=== PATIENT | male | born 1945 | race Caucasian/White ===

== ENCOUNTER → 2017-12-04 11:31 | Outpatient (CLI) | payer MEDICARE, OTHER, SELFPAY | PROVIDERS: Visit Provider Urology | DX: R97.20 Elevated prostate specific antigen [PSA] (principal) | CPT/HCPCS: 36415; 84153 ==

== ENCOUNTER 2018-07-27 15:30 | Inpatient (IN) | payer MEDICARE, OTHER, SELFPAY ==
[2018-07-27 15:38] VITALS: BP 170/95; PULSE 82; RESP 16; TEMP 37.2; O2SAT 96; BMI 29.2
[2018-07-27 16:24] LABS: Add Manual Diff / Slide Review NO; Basophils Absolute Auto 100 /uL (0-100); Basophils Percent Auto 0.4 % (0-2); Eosinophils Absolute Auto 0 /uL (0-450); Eosinophils Percent Auto 0.3 % (2-4); Hemoglobin 14.7 g/dL (13.5-17.5); Lymphocytes Absolute Auto 1200 /uL (1100-4500); Mean Corpuscular HGB Conc 34.2 % (30-36); Mean Corpuscular Hemoglobin 29.8 PG (26-34); Mean Corpuscular Volume 87.1 fL (80-100); Monocytes Absolute Auto 1400 /uL (0-900); Monocytes Percent Auto 9.6 % (3-14); Neutrophils Absolute Auto 11800 /uL (1500-7000); Neutrophils Percent Auto 81.7 % (50-75); Platelet Count 232 X10^3/uL (150-400); Red Blood Cell Count 4.94 X10^6/uL (4.5-5.9); Red Cell Distribution Width 13.3 % (11.6-14.8); White Blood Cell Count 14.4 X10^3/uL (4.5-11.0)
[2018-07-27 16:30] LABS: INR 1.1 (0.9-1.3); Prothrombin Time 12.1 SECONDS (10.1-12.7)
[2018-07-27 16:33] LABS: PTT Partial Thromboplastin Tim 33 SECONDS (26.4-36.2)
[2018-07-27 16:41] LABS: Alanine Aminotransferase 25 IU/L (21-72); Albumin 4.2 g/dL (3.5-5.0); Albumin Globulin Ratio 1.3 (1.0-2.8); Alkaline Phosphatase 82 U/L (38-126); Aspartate Aminotransferase 29 IU/L (17-59); BUN Creatinine Ratio 22.5 (6-22); Bilirubin Total 0.9 mg/dL (0.2-1.3); Blood Urea Nitrogen 18 mg/dL (9-20); Calcium 9.7 mg/dL (8.4-10.2); Carbon Dioxide 27 mmol/L (22-32); Chloride 103 mmol/L (98-107); Estimated Glomerular Filt Rate > 60.0 mL/min (>60); Globulin 3.2 g/dL (1.7-4.1); Glucose 120 mg/dL (80-110); HEMOLYSIS < 15 (0-50); Lipase 126 U/L (23-300); Potassium 3.4 mmol/L (3.4-5.1); Sodium 138 mmol/L (137-145); Total Protein 7.4 g/dL (6.3-8.2)
--- NOTE | 2018-07-27 17:18 | DI.CT.S_ITS ---
PROCEDURE: CT ABDOMEN PELVIS W CON INDICATIONS: abd pain, fever, elevated wbc, hx dvrtc TECHNIQUE: After the administration of oral and intravenous contrast, 5 mm thick sections acquired from the diaphragms to the symphysis. 5 mm thick coronal and sagittal reformats were performed. For radiation dose reduction, the following was used: automated exposure control, adjustment of mA and/or kV according to patient size. COMPARISON: None. FINDINGS: Image quality: Diagnostic. ABDOMEN: Lung bases: Lung bases are clear. Heart size is normal. Solid organs: Liver is normal in size. Multiple hypodense lesions within the liver are compatible with small to moderate-sized hepatic cysts with the largest located within the left hepatic lobe, measuring up to approximately 4 cm in diameter. No intrahepatic or extrahepatic biliary dilatation is identified. There appears to be a small gallstone within the dependent aspect of the gallbladder. The spleen is borderline prominent in size. A subcentimeter focus of low attenuation (image 20, series 2) within the spleen is too small to adequately characterize. The pancreas is within normal limits. The adrenals are normal in size. The kidneys are unremarkable. However, an exophytic left renal cyst is present. Perinephric edema probably is senescent. There is no hydronephrosis. Peritoneum and bowel: There is a small hiatal hernia. Otherwise, the stomach is unremarkable. The duodenum and small bowel loops are nondilated. The appendix is well-visualized and normal in size. Distal colonic diverticulosis is identified with a moderate thickening of the wall of the distal colon at the junction between the descending colon and the sigmoid colon. There is prominent edema within the adjacent mesentery at this location. There may be a small amount of free air adjacent to the descending colon, suggesting a possible contained perforation (image 71, series 2). Minimal free fluid is seen within the left paracolic gutter. No drainable or loculated fluid collections are identified. Nodes and vessels: No retroperitoneal or mesenteric adenopathy. Aorta and inferior vena cava are normal in caliber. There is aortic atherosclerosis. Bones: No acute fracture or suspicious osseous lesion is evident. Age-appropriate degenerative changes of the spine are noted. PELVIS: Genitourinary: Bladder wall thickness is normal. The prostate is enlarged and measures up to approximately 5.2 x 5.4 cm. Miscellaneous: No inguinal hernias or adenopathy. No free fluid or loculated fluid collection is seen within the deep pelvis. Bones: No suspicious bony lesions. No acute pelvic fractures are evident. IMPRESSION: 1. Distal colonic diverticulitis with probable early colonic/diverticular perforation. No abscess or drainable fluid collection is evident. No bowel obstruction. 2. Colonoscopy is recommended after appropriate clinical management to exclude an underlying lesion, given the degree of colonic wall thickening at the junction of the descending and sigmoid colon. 3. Enlarged prostate. 4. Hepatic cysts. 5. Cholelithiasis. Dictated by: Neptali Cantu M.D. on 07/27/2018 at 16:50 Approved by: Neptali Cantu M.D. on 07/27/2018 at 16:57
[2018-07-27 17:35] VITALS: BP 144/74; PULSE 74; RESP 11; O2SAT 94
[2018-07-27] MEDS: SODIUM CHLORIDE 0.9% 1,000 ML 1000 ML IV (17:59)
[2018-07-27] MEDS: metroNIDAZOLE 500 MG/100 ML PIGGYBACK 100 MG IV (19:00)
[2018-07-27] MEDS: levoFLOXacin 750 MG/150 ML PIGGYBACK 100 MG IV (19:01)
[2018-07-27 19:15] VITALS: BP 161/83; PULSE 80; RESP 14; O2SAT 95
[2018-07-27] MEDS: ONDANSETRON 4 MG ODT SL (19:54)
[2018-07-27 20:00] VITALS: BP 139/72; PULSE 74; RESP 18; O2SAT 95
--- NOTE | 2018-07-27 20:21 | ED.ABDPAIN ---
HPI - Abdominal Pain <ÁNGEL Zuniga-BC - Last Filed: 07/27/18 21:20> General Chief Complaint: Abdominal Pain Stated Complaint: ABODOINAL PAIN FOR PAST 14 HOUR, BLOOD IN STOOL Time Seen by Provider: 07/27/18 16:14 Source: patient and family Mode of arrival: ambulatory Limitations: no limitations History of Present Illness HPI narrative: The patient is a 73-year-old male former smoker with history of hypertension, diverticulitis and had noticed the presents with a chief complaint of abdominal pain. He states he thinks he is having a diverticulitis flare again. He complains of low-grade temperatures, denies any nausea vomiting. He states he is having loose stools with bloody mucus for the past 14 hours or so. The abdominal pain also started about 14 hours ago. He states his pain is in the suprapubic area. He denies any chest pain, shortness of breath and or URI symptoms. He denies any dysuria urgency or frequency. Related Data Home Medications Medication Instructions Recorded Confirmed hydrochlorothiazide 12.5 mg PO Q DAY #0 02/04/17 07/27/18 losartan [Cozaar] 100 mg PO Q DAY #0 02/04/17 07/27/18 metoprolol tartrate 50 mg PO Q DAY #0 02/04/17 07/27/18 ascorbic acid (vitamin C) 500 mg PO QDAY #0 03/29/17 07/27/18 felodipine 10 mg PO QDAY #0 03/29/17 07/27/18 multivitamin [Multiple Vitamins] 1 tab PO QDAY #0 03/29/17 07/27/18 potassium chloride 10 meq PO Q DAY #0 03/29/17 07/27/18 vitamin B complex [B 1 tab PO QDAY #0 03/29/17 Complex-Vitamin B12] B Complex-Vitamin B12 1 PO DAILY 07/27/18 lutein 1 PO DAILY 07/27/18 Allergies Allergy/AdvReac Type Severity Reaction Status Date / Time No Known Drug Allergies Allergy Verified 07/27/18 15:40 Review of Systems <ÁNGEL Zuniga-BC - Last Filed: 07/27/18 21:20> Review of Systems GENERAL: Denies chills, fatigue, malaise, fever, sweats. HEENT: Denies sinus pain, ear pain, sore throat, difficulty swallowing, dizziness. RESPIRATORY: Denies dyspnea, cough, wheezing, hemoptysis, sputum. CARDIOVASCULAR: Denies chest pain, palpitations, orthopnea, edema, GASTROINTESTINAL: See HPI : Denies dysuria, frequency, incontinence, hematuria, urinary retention. MUSCULOSKELETAL: denies weakness, joint pain, or bony pain SKIN: Denies rash, skin lesions, or other NEUROLOGIC: Denies weakness, headache, numbness, change in speech, confusion, seizures, incoordination. PSYCHIATRIC: No concerning psychosocial issues. 12 point review of systems is negative except for those stated above PFSH <APRIL Zuniga - Last Filed: 07/27/18 21:20> Medical History (Updated 07/27/18 @ 21:18 by APRIL Zuniga) Hypertension (Acute) BPH (benign prostatic hyperplasia) (Chronic) Hepatitis B (Chronic) Surgical History (Updated 07/27/18 @ 21:00 by Rafat Miguel MD) History of lithotripsy (Resolved) Social History household members: spouse Smoking Status: Former smoker alcohol intake: current Social History household members: spouse Smoking Status: Former smoker alcohol intake: current Exam <APRIL Zuniga - Last Filed: 07/27/18 21:20> Narrative Exam Narrative: GENERAL: This is a well-nourished, well-developed patient, in mild distress. HEAD: Atraumatic. Normocephalic. No temporal or scalp tenderness. EYES: Pupils equal round and reactive. Extraocular motions intact. No scleral icterus. No injection or drainage. ENT: Nose without bleeding, purulent drainage or septal hematoma. Throat without erythema, tonsillar hypertrophy or exudate. Uvula midline. Airway patent. NECK: Trachea midline. No JVD or lymphadenopathy. Supple, nontender, no meningeal signs. CARDIOVASCULAR: Regular rate and rhythm without murmurs, gallops, or rubs. RESPIRATORY: Clear to auscultation. Breath sounds equal bilaterally. No wheezes, rales, or rhonchi. No cough. No increased respiratory effort. No accessory muscle use. No stridor. GASTROINTESTINAL: Abdomen round diffusely tender to palpation suprapubic area, slightly distended. No hepato-splenomegaly, or palpable masses. No guarding. Active bowel sounds all 4 quadrants EXTREMITIES: No clubbing, cyanosis, or edema. No joint tenderness, effusion, or edema noted. BACK: Nontender without deformity or crepitance. No flank tenderness. NEURO: AOx3. SKIN: No rash or erythema. Patient declined rectal exam, stating he did not need Hemoccult to tell me there is blood in his stool Initial Vital Signs Initial Vital Signs: Vital Signs Temperature 99.0 F 07/27/18 15:38 Pulse Rate 82 07/27/18 15:38 Respiratory Rate 16 07/27/18 15:38 Blood Pressure 170/95 H 07/27/18 15:38 Pulse Oximetry 96 07/27/18 15:38 <Donald Mcintosh DO - Last Filed: 07/28/18 01:30> Initial Vital Signs Initial Vital Signs: Vital Signs Temperature 99.0 F 07/27/18 15:38 Pulse Rate 82 07/27/18 15:38 Respiratory Rate 16 07/27/18 15:38 Blood Pressure 170/95 H 07/27/18 15:38 Pulse Oximetry 96 07/27/18 15:38 Course <ERNIE Zuniga - Last Filed: 07/27/18 21:20> Orders Ordered: ED Orders 07/27/18 17:18 CT abdomen pelvis w con Stat 07/27/18 20:45 Urine Culture Stat Urine Microscopic Stat 07/27/18 22:07 Consult to Discharge Planning Routine Education, smoking cessation ONGOING 07/27/18 23:50 Consult to Dietitian, Adult Routine 07/28/18 05:00 Complete Blood Count AUTO DIFF Routine Enoxaparin Sodium (Lovenox) 40 mg SUBCUT DAILY [facility] Last Admin: 07/27/18 22:53 Dose: Not Given Hydrochlorothiazide (Hydrochlorothiazide) 12.5 mg PO DAILY [facility] Lactated Ringer's (Lactated Ringers) 1,000 mls @ 150 mls/hr IV CONT [facility] Last Admin: 07/27/18 22:27 Dose: 150 mls/hr Piperacillin/Tazobactam/Dextrose (Zosyn) 3.375 gm in 50 mls @ 100 mls/hr IV Q6H [facility] Last Admin: 07/27/18 22:53 Dose: 100 mls/hr Ketorolac Tromethamine (Toradol) 30 mg IV Q8HR PRN PRN Reason: pain Stop: 08/01/18 21:28 Lorazepam (Ativan) 0.5 mg IV Q6HR PRN PRN Reason: Losartan Potassium (Cozaar) 100 mg PO DAILY [facility] Metoprolol Tartrate (Lopressor) 50 mg PO DAILY [facility] Naloxone HCl (Narcan) 0.2 mg IV Q2MIN PRN PRN Reason: Opiate Reversal Ondansetron HCl (Zofran) 4 mg IV Q4HR PRN PRN Reason: Nausea And Vomiting Potassium Chloride (Klor-Con M20) 20 meq PO DAILYCC [facility] Discontinued Medications Sodium Chloride (Normal Saline 0.9%) 1,000 mls @ 1,000 mls/hr IV BOLUS ONE Stop: 07/27/18 18:17 Last Infusion: 07/27/18 19:30 Dose: 0 mls/hr Admin: 07/27/18 17:59 Dose: 1,000 mls/hr Levofloxacin (Levaquin) 750 mg in 150 mls @ 100 mls/hr IV NOW ONE Stop: 07/27/18 20:19 Last Infusion: 07/27/18 20:58 Dose: 0 mls/hr Admin: 07/27/18 19:01 Dose: 100 mls/hr Metronidazole (Flagyl) 500 mg in 100 mls @ 100 mls/hr IV NOW ONE Stop: 07/27/18 19:49 Last Infusion: 07/27/18 20:40 Dose: 0 mls/hr Admin: 07/27/18 19:00 Dose: 100 mls/hr Ondansetron HCl (Zofran Odt) 4 mg SL NOW ONE Stop: 07/27/18 19:53 Last Admin: 07/27/18 19:54 Dose: 4 mg Consultations Consultation #1: Given the patient's concern for perforation on CT, I spoke with Dr. Miguel. He states he will be down to see the patient. Time: 18:50 Vital Signs - 8 hr 07/27/18 17:35 07/27/18 19:15 07/27/18 20:00 Temperature Pulse Rate 74 80 74 Respiratory Rate 11 L 14 18 Blood Pressure Blood Pressure [Left Arm] 144/74 H 161/83 H 139/72 Pulse Oximetry 94 95 95 07/27/18 21:20 07/27/18 23:46 Temperature 99.0 F 99.7 F H Pulse Rate 72 68 Respiratory Rate 20 18 Blood Pressure 173/77 H 143/84 H Blood Pressure [Left Arm] Pulse Oximetry 94 97 <Donald Mcintosh, DO - Last Filed: 07/28/18 01:30> Orders Ordered: ED Orders 07/27/18 17:18 CT abdomen pelvis w con Stat 07/27/18 20:45 Urine Culture Stat Urine Microscopic Stat 07/27/18 22:07 Consult to Discharge Planning Routine Education, smoking cessation ONGOING 07/27/18 23:50 Consult to Dietitian, Adult Routine 07/28/18 05:00 Complete Blood Count AUTO DIFF Routine Enoxaparin Sodium (Lovenox) 40 mg SUBCUT DAILY [facility] Last Admin: 07/27/18 22:53 Dose: Not Given Hydrochlorothiazide (Hydrochlorothiazide) 12.5 mg PO DAILY [facility] Lactated Ringer's (Lactated Ringers) 1,000 mls @ 150 mls/hr IV CONT [facility] Last Admin: 07/27/18 22:27 Dose: 150 mls/hr Piperacillin/Tazobactam/Dextrose (Zosyn) 3.375 gm in 50 mls @ 100 mls/hr IV Q6H [facility] Last Admin: 07/27/18 22:53 Dose: 100 mls/hr Ketorolac Tromethamine (Toradol) 30 mg IV Q8HR PRN PRN Reason: pain Stop: 08/01/18 21:28 Lorazepam (Ativan) 0.5 mg IV Q6HR PRN PRN Reason: Losartan Potassium (Cozaar) 100 mg PO DAILY [facility] Metoprolol Tartrate (Lopressor) 50 mg PO DAILY [facility] Naloxone HCl (Narcan) 0.2 mg IV Q2MIN PRN PRN Reason: Opiate Reversal Ondansetron HCl (Zofran) 4 mg IV Q4HR PRN PRN Reason: Nausea And Vomiting Potassium [facility] Medications Sodium Chloride (Normal Saline 0.9%) 1,000 mls @ 1,000 mls/hr IV BOLUS ONE Stop: 07/27/18 18:17 Last Infusion: 07/27/18 19:30 Dose: 0 mls/hr Admin: 07/27/18 17:59 Dose: 1,000 mls/hr Levofloxacin (Levaquin) 750 mg in 150 mls @ 100 mls/hr IV NOW ONE Stop: 07/27/18 20:19 Last Infusion: 07/27/18 20:58 Dose: 0 mls/hr Admin: 07/27/18 19:01 Dose: 100 mls/hr Metronidazole (Flagyl) 500 mg in 100 mls @ 100 mls/hr IV NOW ONE Stop: 07/27/18 19:49 Last Infusion: 07/27/18 20:40 Dose: 0 mls/hr Admin: 07/27/18 19:00 Dose: 100 mls/hr Ondansetron HCl (Zofran Odt) 4 mg SL NOW ONE Stop: 07/27/18 19:53 Last Admin: 07/27/18 19:54 Dose: 4 mg Vital Signs - 8 hr 07/27/18 17:35 07/27/18 19:15 07/27/18 20:00 Temperature Pulse Rate 74 80 74 Respiratory Rate 11 L 14 18 Blood Pressure Blood Pressure [Left Arm] 144/74 H 161/83 H 139/72 Pulse Oximetry 94 95 95 07/27/18 21:20 07/27/18 23:46 Temperature 99.0 F 99.7 F H Pulse Rate 72 68 Respiratory Rate 20 18 Blood Pressure 173/77 H 143/84 H Blood Pressure [Left Arm] Pulse Oximetry 94 97 MDM - Abdominal Pain <ÁNGEL Zuniga-BC - Last Filed: 07/27/18 21:20> Lab Data Result diagrams: 07/27/18 16:10 07/27/18 16:10 Lab Results 07/27/18 07/27/18 07/27/18 Range/Units 16:10 16:10 16:10 WBC 14.4 H (4.5-11.0) X10^3/uL RBC 4.94 (4.5-5.9) X10^6/uL Hgb 14.7 (13.5-17.5) g/dL Hct 43.0 (41-53) % MCV 87.1 (80-100) fL MCH 29.8 (26-34) PG MCHC 34.2 (30-36) % RDW 13.3 (11.6-14.8) % Plt Count 232 (150-400) X10^3/uL Neut % (Auto) 81.7 H (50-75) % Lymph % (Auto) 8.0 L (25-40) % [place] % (Auto) 9.6 (3-14) % Eos % (Auto) 0.3 L (2-4) % Baso % (Auto) 0.4 (0-2) % Neut # (Auto) 63353 H (2582-9907) /uL Lymph # (Auto) 1200 (3286-5702) /uL [place] # (Auto) 1400 H (0-900) /uL Eos # (Auto) 0 (0-450) /uL Baso # (Auto) 100 (0-100) /uL PT 12.1 (10.1-12.7) SECONDS INR 1.1 (0.9-1.3) APTT 33 (26.4-36.2) SECONDS Sodium 138 (137-145) mmol/L Potassium 3.4 (3.4-5.1) mmol/L Chloride 103 (98-107) mmol/L Carbon Dioxide 27 (22-32) mmol/L BUN 18 (9-20) mg/dL Creatinine 0.80 (0.66-1.25) mg/dL Estimated GFR > 60.0 (>60) mL/min BUN/Creatinine Ratio 22.5 H (6-22) Glucose 120 H (80-110) mg/dL Calcium 9.7 (8.4-10.2) mg/dL Total Bilirubin 0.9 (0.2-1.3) mg/dL AST 29 (17-59) IU/L ALT 25 (21-72) IU/L Alkaline Phosphatase 82 (38-126) U/L Total Protein 7.4 (6.3-8.2) g/dL Albumin 4.2 (3.5-5.0) g/dL Globulin 3.2 (1.7-4.1) g/dL Albumin/Globulin Ratio 1.3 (1.0-2.8) Lipase 126 (23-300) U/L Urine RBC (0-5/HPF) Urine WBC (0-5/HPF) Ur Squamous Epith Cells (0-5/HPF) Urine Bacteria (None) Ur Culture Indicated? 07/27/18 Range/Units 20:45 WBC (4.5-11.0) X10^3/uL RBC (4.5-5.9) X10^6/uL Hgb (13.5-17.5) g/dL Hct (41-53) % MCV (80-100) fL MCH (26-34) PG MCHC (30-36) % RDW (11.6-14.8) % Plt Count (150-400) X10^3/uL Neut % (Auto) (50-75) % Lymph % (Auto) (25-40) % [place] % (Auto) (3-14) % Eos % (Auto) (2-4) % Baso % (Auto) (0-2) % Neut # (Auto) (7669-2367) /uL Lymph # (Auto) (5740-6703) /uL [place] # (Auto) (0-900) /uL Eos # (Auto) (0-450) /uL Baso # (Auto) (0-100) /uL PT (10.1-12.7) SECONDS INR (0.9-1.3) APTT (26.4-36.2) SECONDS Sodium (137-145) mmol/L Potassium (3.4-5.1) mmol/L Chloride (98-107) mmol/L Carbon Dioxide (22-32) mmol/L BUN (9-20) mg/dL Creatinine (0.66-1.25) mg/dL Estimated GFR (>60) mL/min BUN/Creatinine Ratio (6-22) Glucose (80-110) mg/dL Calcium (8.4-10.2) mg/dL Total Bilirubin (0.2-1.3) mg/dL AST (17-59) IU/L ALT (21-72) IU/L Alkaline Phosphatase (38-126) U/L Total Protein (6.3-8.2) g/dL Albumin (3.5-5.0) g/dL Globulin (1.7-4.1) g/dL Albumin/Globulin Ratio (1.0-2.8) Lipase (23-300) U/L Urine RBC 0-1/hpf (0-5/HPF) Urine WBC 0-1/hpf (0-5/HPF) Ur Squamous Epith Cells 0-1 /hpf (0-5/HPF) Urine Bacteria Occasional (0-1) (None) Ur Culture Indicated? Specimen cultured Point of care testing: Urine Dip Bedside Urine Glucose Negative Bedside Urine Bilirubin - Negative Bedside Urine Ketone +/- 5 Urine Specific [place] 1.015 Bedside Urine Occult Blood - Negative Bedside Urine pH 5.0 Bedside Urine Protein +/- 15 Bedside Urine Urobilinogen +/- 1mg Bedside Urine Nitrite - Negative Bedside Urine Leukocytes +/- [address] scan - abdomen: Radiologist's impression: [place] [address] CT Scan Report Signed Patient: John Mistry RMR#: [id number] : 7Acct:[id number] Age/Sex: 73 / MDate of Service: 07/27/18 Loc: ED Accession Number: [id number] Procedure: CT abdomen pelvis w con Ordering Provider: Rosanna King EX ASSISTANT/PROGRAM DIRECTOR-BC PROCEDURE: CT ABDOMEN PELVIS W CON INDICATIONS: abd pain, fever, elevated wbc, hx dvrtc TECHNIQUE: After the administration of oral and intravenous contrast, 5 mm thick sections acquired from the diaphragms to the symphysis. 5 mm thick coronal and sagittal reformats were performed. For radiation dose reduction, the following was used: automated exposure control, adjustment of mA and/or kV according to patient size. COMPARISON: None. FINDINGS: Image quality: Diagnostic. ABDOMEN: Lung bases: Lung bases are clear. Heart size is normal. Solid organs: Liver is normal in size. Multiple hypodense lesions within the liver are compatible with small to moderate-sized hepatic cysts with the largest located within the left hepatic lobe, measuring up to approximately 4 cm in diameter. No intrahepatic or extrahepatic biliary dilatation is identified. There appears to be a small gallstone within the dependent aspect of the gallbladder. The spleen is borderline prominent in size. A subcentimeter focus of low attenuation (image 20, series 2) within the spleen is too small to adequately characterize. The pancreas is within normal limits. The adrenals are normal in size. The kidneys are unremarkable. However, an exophytic left renal cyst is present. Perinephric edema probably is senescent. There is no hydronephrosis. Peritoneum and bowel: There is a small hiatal hernia. Otherwise, the stomach is unremarkable. The duodenum and small bowel loops are nondilated. The appendix is well-visualized and normal in size. Distal colonic diverticulosis is identified with a moderate thickening of the wall of the distal colon at the junction between the descending colon and the sigmoid colon. There is prominent edema within the adjacent mesentery at this location. There may be a small amount of free air adjacent to the descending colon, suggesting a possible contained perforation (image 71, series 2). Minimal free fluid is seen within the left paracolic gutter. No drainable or loculated fluid collections are identified. Nodes and vessels: No retroperitoneal or mesenteric adenopathy. Aorta and inferior vena cava are normal in caliber. There is aortic atherosclerosis. Bones: No acute fracture or suspicious osseous lesion is evident. Age-appropriate degenerative changes of the spine are noted. PELVIS: Genitourinary: Bladder wall thickness is normal. The prostate is enlarged and measures up to approximately 5.2 x 5.4 cm. Miscellaneous: No inguinal hernias or adenopathy. No free fluid or loculated fluid collection is seen within the deep pelvis. Bones: No suspicious bony lesions. No acute pelvic fractures are evident. IMPRESSION: 1. Distal colonic diverticulitis with probable early colonic/diverticular perforation. No abscess or drainable fluid collection is evident. No bowel obstruction. 2. Colonoscopy is recommended after appropriate clinical management to exclude an underlying lesion, given the degree of colonic wall thickening at the junction of the descending and sigmoid colon. 3. Enlarged prostate. 4. Hepatic cysts. 5. Cholelithiasis. MDM Narrative Medical decision making narrative: The patient is a 73-year-old male who presents with chief complaint of abdominal pain. On CT scan, he has distal colonic diverticulitis with probable early perforation. He has no elevated white blood cell count. Has low-grade fevers. After the results of the CT scan, he received IV metronidazole and Levaquin. Dr. Miguel was down to see the patient and was kind enough to admit him. Patient and stated understanding of admission and had no questions or concerns. <Donald Mcintosh, - Last Filed: 07/28/18 01:30> Lab Data Lab Results 07/27/18 07/27/18 07/27/18 Range/Units 16:10 16:10 16:10 WBC 14.4 H (4.5-11.0) X10^3/uL RBC 4.94 (4.5-5.9) X10^6/uL Hgb 14.7 (13.5-17.5) g/dL Hct 43.0 (41-53) % MCV 87.1 (80-100) fL MCH 29.8 (26-34) PG MCHC 34.2 (30-36) % RDW 13.3 (11.6-14.8) % Plt Count 232 (150-400) X10^3/uL Neut % (Auto) 81.7 H (50-75) % Lymph % (Auto) 8.0 L (25-40) % [place] % (Auto) 9.6 (3-14) % Eos % (Auto) 0.3 L (2-4) % Baso % (Auto) 0.4 (0-2) % Neut # (Auto) 78669 H (3979-2644) /uL Lymph # (Auto) 1200 (4356-0658) /uL [place] # (Auto) 1400 H (0-900) /uL Eos # (Auto) 0 (0-450) /uL Baso # (Auto) 100 (0-100) /uL PT 12.1 (10.1-12.7) SECONDS INR 1.1 (0.9-1.3) APTT 33 (26.4-36.2) SECONDS Sodium 138 (137-145) mmol/L Potassium 3.4 (3.4-5.1) mmol/L Chloride 103 (98-107) mmol/L Carbon Dioxide 27 (22-32) mmol/L BUN 18 (9-20) mg/dL Creatinine 0.80 (0.66-1.25) mg/dL Estimated GFR > 60.0 (>60) mL/min BUN/Creatinine Ratio 22.5 H (6-22) Glucose 120 H (80-110) mg/dL Calcium 9.7 (8.4-10.2) mg/dL Total Bilirubin 0.9 (0.2-1.3) mg/dL AST 29 (17-59) IU/L ALT 25 (21-72) IU/L Alkaline Phosphatase 82 (38-126) U/L Total Protein 7.4 (6.3-8.2) g/dL Albumin 4.2 (3.5-5.0) g/dL Globulin 3.2 (1.7-4.1) g/dL Albumin/Globulin Ratio 1.3 (1.0-2.8) Lipase 126 (23-300) U/L Urine RBC (0-5/HPF) Urine WBC (0-5/HPF) Ur Squamous Epith Cells (0-5/HPF) Urine Bacteria (None) Ur Culture Indicated? 07/27/18 Range/Units 20:45 WBC (4.5-11.0) X10^3/uL RBC (4.5-5.9) X10^6/uL Hgb (13.5-17.5) g/dL Hct (41-53) % MCV (80-100) fL MCH (26-34) PG MCHC (30-36) % RDW (11.6-14.8) % Plt Count (150-400) X10^3/uL Neut % (Auto) (50-75) % Lymph % (Auto) (25-40) % [place] % (Auto) (3-14) % Eos % (Auto) (2-4) % Baso % (Auto) (0-2) % Neut # (Auto) (9835-3575) /uL Lymph # (Auto) (3626-7635) /uL [place] # (Auto) (0-900) /uL Eos # (Auto) (0-450) /uL Baso # (Auto) (0-100) /uL PT (10.1-12.7) SECONDS INR (0.9-1.3) APTT (26.4-36.2) SECONDS Sodium (137-145) mmol/L Potassium (3.4-5.1) mmol/L Chloride (98-107) mmol/L Carbon Dioxide (22-32) mmol/L BUN (9-20) mg/dL Creatinine (0.66-1.25) mg/dL Estimated GFR (>60) mL/min BUN/Creatinine Ratio (6-22) Glucose (80-110) mg/dL Calcium (8.4-10.2) mg/dL Total Bilirubin (0.2-1.3) mg/dL AST (17-59) IU/L ALT (21-72) IU/L Alkaline Phosphatase (38-126) U/L Total Protein (6.3-8.2) g/dL Albumin (3.5-5.0) g/dL Globulin (1.7-4.1) g/dL Albumin/Globulin Ratio (1.0-2.8) Lipase (23-300) U/L Urine RBC 0-1/hpf (0-5/HPF) Urine WBC 0-1/hpf (0-5/HPF) Ur Squamous Epith Cells 0-1 /hpf (0-5/HPF) Urine Bacteria Occasional (0-1) (None) Ur Culture Indicated? Specimen cultured Point of care testing: Urine Dip Bedside Urine Glucose Negative Bedside Urine Bilirubin - Negative Bedside Urine Ketone +/- 5 Urine Specific [place] 1.015 Bedside Urine Occult Blood - Negative Bedside Urine pH 5.0 Bedside Urine Protein +/- 15 Bedside Urine Urobilinogen +/- 1mg Bedside Urine Nitrite - Negative Bedside Urine Leukocytes +/- 15 Esterase Discharge Plan Departure Patient Disposition: Admitted As Inpatient Clinical Impression: Diverticulitis of colon with perforation Qualifiers: Diverticulitis bleeding: with bleeding Qualified Code(s): K57.21 - Diverticulitis of large intestine with perforation and abscess with bleeding Discharge Date/Time: 07/27/18 21:35 Interventions: ED Discharge Assessment Last Done: 07/27/18 21:35 Admit Date/Time: 07/27/18 20:40 Admit Provider: Rafat Miguel <Donald Mcintosh DO - Last Filed: 07/28/18 01:30> Cosign ED Attending Cosignature Attestation: I was immediately available in the department for consultation. Documentation has been reviewed. I agree with assessment and plan.
--- NOTE | 2018-07-27 20:26 | ED_ITS ---
HPI - Abdominal Pain <ÁNGEL Zuniga-BC - Last Filed: 07/27/18 21:20> General Chief Complaint: Abdominal Pain Stated Complaint: ABODOINAL PAIN FOR PAST 14 HOUR, BLOOD IN STOOL Time Seen by Provider: 07/27/18 16:14 Source: patient and family Mode of arrival: ambulatory Limitations: no limitations History of Present Illness HPI narrative: The patient is a 73-year-old male former smoker with history of hypertension, diverticulitis and had noticed the presents with a chief complaint of abdominal pain. He states he thinks he is having a diverticulitis flare again. He complains of low-grade temperatures, denies any nausea vomiting. He states he is having loose stools with bloody mucus for the past 14 hours or so. The abdominal pain also started about 14 hours ago. He states his pain is in the suprapubic area. He denies any chest pain, shortness of breath and or URI symptoms. He denies any dysuria urgency or frequency. Related Data Home Medications Medication Instructions Recorded Confirmed hydrochlorothiazide 12.5 mg PO Q DAY #0 02/04/17 07/27/18 losartan [Cozaar] 100 mg PO Q DAY #0 02/04/17 07/27/18 metoprolol tartrate 50 mg PO Q DAY #0 02/04/17 07/27/18 ascorbic acid (vitamin C) 500 mg PO QDAY #0 03/29/17 07/27/18 felodipine 10 mg PO QDAY #0 03/29/17 07/27/18 multivitamin [Multiple Vitamins] 1 tab PO QDAY #0 03/29/17 07/27/18 potassium chloride 10 meq PO Q DAY #0 03/29/17 07/27/18 vitamin B complex [B 1 tab PO QDAY #0 03/29/17 Complex-Vitamin B12] B Complex-Vitamin B12 1 PO DAILY 07/27/18 lutein 1 PO DAILY 07/27/18 Allergies Allergy/AdvReac Type Severity Reaction Status Date / Time No Known Drug Allergies Allergy Verified 07/27/18 15:40 Review of Systems <ÁNGEL Zuniga-BC - Last Filed: 07/27/18 21:20> Review of Systems GENERAL: Denies chills, fatigue, malaise, fever, sweats. HEENT: Denies sinus pain, ear pain, sore throat, difficulty swallowing, dizziness. RESPIRATORY: Denies dyspnea, cough, wheezing, hemoptysis, sputum. CARDIOVASCULAR: Denies chest pain, palpitations, orthopnea, edema, GASTROINTESTINAL: See HPI : Denies dysuria, frequency, incontinence, hematuria, urinary retention. MUSCULOSKELETAL: denies weakness, joint pain, or bony pain SKIN: Denies rash, skin lesions, or other NEUROLOGIC: Denies weakness, headache, numbness, change in speech, confusion, seizures, incoordination. PSYCHIATRIC: No concerning psychosocial issues. 12 point review of systems is negative except for those stated above PFSH <APRIL Zuniga - Last Filed: 07/27/18 21:20> Medical History (Updated 07/27/18 @ 21:18 by APRIL Zuniga) Hypertension (Acute) BPH (benign prostatic hyperplasia) (Chronic) Hepatitis B (Chronic) Surgical History (Updated 07/27/18 @ 21:00 by Rafat Miguel MD) History of lithotripsy (Resolved) Social History household members: spouse Smoking Status: Former smoker alcohol intake: current Social History household members: spouse Smoking Status: Former smoker alcohol intake: current Exam <APRIL Zuniga - Last Filed: 07/27/18 21:20> Narrative Exam Narrative: GENERAL: This is a well-nourished, well-developed patient, in mild distress. HEAD: Atraumatic. Normocephalic. No temporal or scalp tenderness. EYES: Pupils equal round and reactive. Extraocular motions intact. No scleral icterus. No injection or drainage. ENT: Nose without bleeding, purulent drainage or septal hematoma. Throat without erythema, tonsillar hypertrophy or exudate. Uvula midline. Airway patent. NECK: Trachea midline. No JVD or lymphadenopathy. Supple, nontender, no meningeal signs. CARDIOVASCULAR: Regular rate and rhythm without murmurs, gallops, or rubs. RESPIRATORY: Clear to auscultation. Breath sounds equal bilaterally. No wheezes, rales, or rhonchi. No cough. No increased respiratory effort. No accessory muscle use. No stridor. GASTROINTESTINAL: Abdomen round diffusely tender to palpation suprapubic area, slightly distended. No hepato-splenomegaly, or palpable masses. No guarding. Active bowel sounds all 4 quadrants EXTREMITIES: No clubbing, cyanosis, or edema. No joint tenderness, effusion, or edema noted. BACK: Nontender without deformity or crepitance. No flank tenderness. NEURO: AOx3. SKIN: No rash or erythema. Patient declined rectal exam, stating he did not need Hemoccult to tell me there is blood in his stool Initial Vital Signs Initial Vital Signs: Vital Signs Temperature 99.0 F 07/27/18 15:38 Pulse Rate 82 07/27/18 15:38 Respiratory Rate 16 07/27/18 15:38 Blood Pressure 170/95 H 07/27/18 15:38 Pulse Oximetry 96 07/27/18 15:38 <Donald Mcintosh DO - Last Filed: 07/28/18 01:30> Initial Vital Signs Initial Vital Signs: Vital Signs Temperature 99.0 F 07/27/18 15:38 Pulse Rate 82 07/27/18 15:38 Respiratory Rate 16 07/27/18 15:38 Blood Pressure 170/95 H 07/27/18 15:38 Pulse Oximetry 96 07/27/18 15:38 Course <ERNIE Zuniga - Last Filed: 07/27/18 21:20> Orders Ordered: ED Orders 07/27/18 17:18 CT abdomen pelvis w con Stat 07/27/18 20:45 Urine Culture Stat Urine Microscopic Stat 07/27/18 22:07 Consult to Discharge Planning Routine Education, smoking cessation ONGOING 07/27/18 23:50 Consult to Dietitian, Adult Routine 07/28/18 05:00 Complete Blood Count AUTO DIFF Routine Enoxaparin Sodium (Lovenox) 40 mg SUBCUT DAILY [facility] Last Admin: 07/27/18 22:53 Dose: Not Given Hydrochlorothiazide (Hydrochlorothiazide) 12.5 mg PO DAILY [facility] Lactated Ringer's (Lactated Ringers) 1,000 mls @ 150 mls/hr IV CONT [facility] Last Admin: 07/27/18 22:27 Dose: 150 mls/hr Piperacillin/Tazobactam/Dextrose (Zosyn) 3.375 gm in 50 mls @ 100 mls/hr IV Q6H [facility] Last Admin: 07/27/18 22:53 Dose: 100 mls/hr Ketorolac Tromethamine (Toradol) 30 mg IV Q8HR PRN PRN Reason: pain Stop: 08/01/18 21:28 Lorazepam (Ativan) 0.5 mg IV Q6HR PRN PRN Reason: Losartan Potassium (Cozaar) 100 mg PO DAILY [facility] Metoprolol Tartrate (Lopressor) 50 mg PO DAILY [facility] Naloxone HCl (Narcan) 0.2 mg IV Q2MIN PRN PRN Reason: Opiate Reversal Ondansetron HCl (Zofran) 4 mg IV Q4HR PRN PRN Reason: Nausea And Vomiting Potassium Chloride (Klor-Con M20) 20 meq PO DAILYCC [facility] Discontinued Medications Sodium Chloride (Normal Saline 0.9%) 1,000 mls @ 1,000 mls/hr IV BOLUS ONE Stop: 07/27/18 18:17 Last Infusion: 07/27/18 19:30 Dose: 0 mls/hr Admin: 07/27/18 17:59 Dose: 1,000 mls/hr Levofloxacin (Levaquin) 750 mg in 150 mls @ 100 mls/hr IV NOW ONE Stop: 07/27/18 20:19 Last Infusion: 07/27/18 20:58 Dose: 0 mls/hr Admin: 07/27/18 19:01 Dose: 100 mls/hr Metronidazole (Flagyl) 500 mg in 100 mls @ 100 mls/hr IV NOW ONE Stop: 07/27/18 19:49 Last Infusion: 07/27/18 20:40 Dose: 0 mls/hr Admin: 07/27/18 19:00 Dose: 100 mls/hr Ondansetron HCl (Zofran Odt) 4 mg SL NOW ONE Stop: 07/27/18 19:53 Last Admin: 07/27/18 19:54 Dose: 4 mg Consultations Consultation #1: Given the patient's concern for perforation on CT, I spoke with Dr. Miguel. He states he will be down to see the patient. Time: 18:50 Vital Signs - 8 hr 07/27/18 17:35 07/27/18 19:15 07/27/18 20:00 Temperature Pulse Rate 74 80 74 Respiratory Rate 11 L 14 18 Blood Pressure Blood Pressure [Left Arm] 144/74 H 161/83 H 139/72 Pulse Oximetry 94 95 95 07/27/18 21:20 07/27/18 23:46 Temperature 99.0 F 99.7 F H Pulse Rate 72 68 Respiratory Rate 20 18 Blood Pressure 173/77 H 143/84 H Blood Pressure [Left Arm] Pulse Oximetry 94 97 <Donald Mcintosh, DO - Last Filed: 07/28/18 01:30> Orders Ordered: ED Orders 07/27/18 17:18 CT abdomen pelvis w con Stat 07/27/18 20:45 Urine Culture Stat Urine Microscopic Stat 07/27/18 22:07 Consult to Discharge Planning Routine Education, smoking cessation ONGOING 07/27/18 23:50 Consult to Dietitian, Adult Routine 07/28/18 05:00 Complete Blood Count AUTO DIFF Routine Enoxaparin Sodium (Lovenox) 40 mg SUBCUT DAILY [facility] Last Admin: 07/27/18 22:53 Dose: Not Given Hydrochlorothiazide (Hydrochlorothiazide) 12.5 mg PO DAILY [facility] Lactated Ringer's (Lactated Ringers) 1,000 mls @ 150 mls/hr IV CONT [facility] Last Admin: 07/27/18 22:27 Dose: 150 mls/hr Piperacillin/Tazobactam/Dextrose (Zosyn) 3.375 gm in 50 mls @ 100 mls/hr IV Q6H [facility] Last Admin: 07/27/18 22:53 Dose: 100 mls/hr Ketorolac Tromethamine (Toradol) 30 mg IV Q8HR PRN PRN Reason: pain Stop: 08/01/18 21:28 Lorazepam (Ativan) 0.5 mg IV Q6HR PRN PRN Reason: Losartan Potassium (Cozaar) 100 mg PO DAILY [facility] Metoprolol Tartrate (Lopressor) 50 mg PO DAILY [facility] Naloxone HCl (Narcan) 0.2 mg IV Q2MIN PRN PRN Reason: Opiate Reversal Ondansetron HCl (Zofran) 4 mg IV Q4HR PRN PRN Reason: Nausea And Vomiting Potassium Chloride ([facility]Con M[facility]) [facility] Discontinued Medications Sodium Chloride (Normal Saline 0.9%) 1,000 mls @ 1,000 mls/hr IV BOLUS ONE Stop: 07/27/18 18:17 Last Infusion: 07/27/18 19:30 Dose: 0 mls/hr Admin: 07/27/18 17:59 Dose: 1,000 mls/hr Levofloxacin (Levaquin) 750 mg in 150 mls @ 100 mls/hr IV NOW ONE Stop: 07/27/18 20:19 Last Infusion: 07/27/18 20:58 Dose: 0 mls/hr Admin: 07/27/18 19:01 Dose: 100 mls/hr Metronidazole (Flagyl) 500 mg in 100 mls @ 100 mls/hr IV NOW ONE Stop: 07/27/18 19:49 Last Infusion: 07/27/18 20:40 Dose: 0 mls/hr Admin: 07/27/18 19:00 Dose: 100 mls/hr Ondansetron HCl (Zofran Odt) 4 mg SL NOW ONE Stop: 07/27/18 19:53 Last Admin: 07/27/18 19:54 Dose: 4 mg Vital Signs - 8 hr 07/27/18 17:35 07/27/18 19:15 07/27/18 20:00 Temperature Pulse Rate 74 80 74 Respiratory Rate 11 L 14 18 Blood Pressure Blood Pressure [Left Arm] 144/74 H 161/83 H 139/72 Pulse Oximetry 94 95 95 07/27/18 21:20 07/27/18 23:46 Temperature 99.0 F 99.7 F H Pulse Rate 72 68 Respiratory Rate 20 18 Blood Pressure 173/77 H 143/84 H Blood Pressure [Left Arm] Pulse Oximetry 94 97 MDM - Abdominal Pain <ÁNGEL Zuniga-BC - Last Filed: 07/27/18 21:20> Lab Data Result diagrams: 07/27/18 16:10 07/27/18 16:10 Lab Results 07/27/18 07/27/18 07/27/18 Range/Units 16:10 16:10 16:10 WBC 14.4 H (4.5-11.0) X10^3/uL RBC 4.94 (4.5-5.9) X10^6/uL Hgb 14.7 (13.5-17.5) g/dL Hct 43.0 (41-53) % MCV 87.1 (80-100) fL MCH 29.8 (26-34) PG MCHC 34.2 (30-36) % RDW 13.3 (11.6-14.8) % Plt Count 232 (150-400) X10^3/uL Neut % (Auto) 81.7 H (50-75) % Lymph % (Auto) 8.0 L (25-40) % [place] % (Auto) 9.6 (3-14) % Eos % (Auto) 0.3 L (2-4) % Baso % (Auto) 0.4 (0-2) % Neut # (Auto) 72320 H (6677-3303) /uL Lymph # (Auto) 1200 (6428-5919) /uL [place] # (Auto) 1400 H (0-900) /uL Eos # (Auto) 0 (0-450) /uL Baso # (Auto) 100 (0-100) /uL PT 12.1 (10.1-12.7) SECONDS INR 1.1 (0.9-1.3) APTT 33 (26.4-36.2) SECONDS Sodium 138 (137-145) mmol/L Potassium 3.4 (3.4-5.1) mmol/L Chloride 103 (98-107) mmol/L Carbon Dioxide 27 (22-32) mmol/L BUN 18 (9-20) mg/dL Creatinine 0.80 (0.66-1.25) mg/dL Estimated GFR > 60.0 (>60) mL/min BUN/Creatinine Ratio 22.5 H (6-22) Glucose 120 H (80-110) mg/dL Calcium 9.7 (8.4-10.2) mg/dL Total Bilirubin 0.9 (0.2-1.3) mg/dL AST 29 (17-59) IU/L ALT 25 (21-72) IU/L Alkaline Phosphatase 82 (38-126) U/L Total Protein 7.4 (6.3-8.2) g/dL Albumin 4.2 (3.5-5.0) g/dL Globulin 3.2 (1.7-4.1) g/dL Albumin/Globulin Ratio 1.3 (1.0-2.8) Lipase 126 (23-300) U/L Urine RBC (0-5/HPF) Urine WBC (0-5/HPF) Ur Squamous Epith Cells (0-5/HPF) Urine Bacteria (None) Ur Culture Indicated? 07/27/18 Range/Units 20:45 WBC (4.5-11.0) X10^3/uL RBC (4.5-5.9) X10^6/uL Hgb (13.5-17.5) g/dL Hct (41-53) % MCV (80-100) fL MCH (26-34) PG MCHC (30-36) % RDW (11.6-14.8) % Plt Count (150-400) X10^3/uL Neut % (Auto) (50-75) % Lymph % (Auto) (25-40) % [place] % (Auto) (3-14) % Eos % (Auto) (2-4) % Baso % (Auto) (0-2) % Neut # (Auto) (1188-8360) /uL Lymph # (Auto) (8064-4819) /uL [place] # (Auto) (0-900) /uL Eos # (Auto) (0-450) /uL Baso # (Auto) (0-100) /uL PT (10.1-12.7) SECONDS INR (0.9-1.3) APTT (26.4-36.2) SECONDS Sodium (137-145) mmol/L Potassium (3.4-5.1) mmol/L Chloride (98-107) mmol/L Carbon Dioxide (22-32) mmol/L BUN (9-20) mg/dL Creatinine (0.66-1.25) mg/dL Estimated GFR (>60) mL/min BUN/Creatinine Ratio (6-22) Glucose (80-110) mg/dL Calcium (8.4-10.2) mg/dL Total Bilirubin (0.2-1.3) mg/dL AST (17-59) IU/L ALT (21-72) IU/L Alkaline Phosphatase (38-126) U/L Total Protein (6.3-8.2) g/dL Albumin (3.5-5.0) g/dL Globulin (1.7-4.1) g/dL Albumin/Globulin Ratio (1.0-2.8) Lipase (23-300) U/L Urine RBC 0-1/hpf (0-5/HPF) Urine WBC 0-1/hpf (0-5/HPF) Ur Squamous Epith Cells 0-1 /hpf (0-5/HPF) Urine Bacteria Occasional (0-1) (None) Ur Culture Indicated? Specimen cultured Point of care testing: Urine Dip Bedside Urine Glucose Negative Bedside Urine Bilirubin - Negative Bedside Urine Ketone +/- 5 Urine Specific [place] 1.015 Bedside Urine Occult Blood - Negative Bedside Urine pH 5.0 Bedside Urine Protein +/- 15 Bedside Urine Urobilinogen +/- 1mg Bedside Urine Nitrite - Negative Bedside Urine Leukocytes +/- [address] scan - abdomen: Radiologist's impression: [place] [address] CT Scan Report Signed Patient: John Mistry RMR#: [id number] : 7Acct:[id number] Age/Sex: 73 / MDate of Service: 07/27/18 Loc: ED Accession Number: [id number] Procedure: CT abdomen pelvis w con Ordering Provider: Rosanna King [employer] PROCEDURE: CT ABDOMEN PELVIS W CON INDICATIONS: abd pain, fever, elevated wbc, hx dvrtc TECHNIQUE: After the administration of oral and intravenous contrast, 5 mm thick sections acquired from the diaphragms to the symphysis. 5 mm thick coronal and sagittal reformats were performed. For radiation dose reduction, the following was used: automated exposure control, adjustment of mA and/or kV according to patient size. COMPARISON: None. FINDINGS: Image quality: Diagnostic. ABDOMEN: Lung bases: Lung bases are clear. Heart size is normal. Solid organs: Liver is normal in size. Multiple hypodense lesions within the liver are compatible with small to moderate-sized hepatic cysts with the largest located within the left hepatic lobe, measuring up to approximately 4 cm in diameter. No intrahepatic or extrahepatic biliary dilatation is identified. There appears to be a small gallstone within the dependent aspect of the gallbladder. The spleen is borderline prominent in size. A subcentimeter focus of low attenuation (image 20, series 2) within the spleen is too small to adequately characterize. The pancreas is within normal limits. The adrenals are normal in size. The kidneys are unremarkable. However, an exophytic left renal cyst is present. Perinephric edema probably is senescent. There is no hydronephrosis. Peritoneum and bowel: There is a small hiatal hernia. Otherwise, the stomach is unremarkable. The duodenum and small bowel loops are nondilated. The appendix is well-visualized and normal in size. Distal colonic diverticulosis is identified with a moderate thickening of the wall of the distal colon at the junction between the descending colon and the sigmoid colon. There is prominent edema within the adjacent mesentery at this location. There may be a small amount of free air adjacent to the descending colon, suggesting a possible contained perforation (image 71, series 2). Minimal free fluid is seen within the left paracolic gutter. No drainable or loculated fluid collections are identified. Nodes and vessels: No retroperitoneal or mesenteric adenopathy. Aorta and inferior vena cava are normal in caliber. There is aortic atherosclerosis. Bones: No acute fracture or suspicious osseous lesion is evident. Age- appropriate degenerative changes of the spine are noted. PELVIS: Genitourinary: Bladder wall thickness is normal. The prostate is enlarged and measures up to approximately 5.2 x 5.4 cm. Miscellaneous: No inguinal hernias or adenopathy. No free fluid or loculated fluid collection is seen within the deep pelvis. Bones: No suspicious bony lesions. No acute pelvic fractures are evident. IMPRESSION: 1. Distal colonic diverticulitis with probable early colonic/diverticular perforation. No abscess or drainable fluid collection is evident. No bowel obstruction. 2. Colonoscopy is recommended after appropriate clinical management to exclude an underlying lesion, given the degree of colonic wall thickening at the junction of the descending and sigmoid colon. 3. Enlarged prostate. 4. Hepatic cysts. 5. Cholelithiasis. MDM Narrative Medical decision making narrative: The patient is a 73-year-old male who presents with chief complaint of abdominal pain. On CT scan, he has distal colonic diverticulitis with probable early perforation. He has no elevated white blood cell count. Has low-grade fevers. After the results of the CT scan, he received IV metronidazole and Levaquin. Dr. Miguel was down to see the patient and was kind enough to admit him. Patient and stated understanding of admission and had no questions or concerns. <Donald Mcintosh, - Last Filed: 07/28/18 01:30> Lab Data Lab Results 07/27/18 07/27/18 07/27/18 Range/Units 16:10 16:10 16:10 WBC 14.4 H (4.5-11.0) X10^3/uL RBC 4.94 (4.5-5.9) X10^6/uL Hgb 14.7 (13.5-17.5) g/dL Hct 43.0 (41-53) % MCV 87.1 (80-100) fL MCH 29.8 (26-34) PG MCHC 34.2 (30-36) % RDW 13.3 (11.6-14.8) % Plt Count 232 (150-400) X10^3/uL Neut % (Auto) 81.7 H (50-75) % Lymph % (Auto) 8.0 L (25-40) % [place] % (Auto) 9.6 (3-14) % Eos % (Auto) 0.3 L (2-4) % Baso % (Auto) 0.4 (0-2) % Neut # (Auto) 53232 H (0039-8252) /uL Lymph # (Auto) 1200 (0770-9878) /uL [place] # (Auto) 1400 H (0-900) /uL Eos # (Auto) 0 (0-450) /uL Baso # (Auto) 100 (0-100) /uL PT 12.1 (10.1-12.7) SECONDS INR 1.1 (0.9-1.3) APTT 33 (26.4-36.2) SECONDS Sodium 138 (137-145) mmol/L Potassium 3.4 (3.4-5.1) mmol/L Chloride 103 (98-107) mmol/L Carbon Dioxide 27 (22-32) mmol/L BUN 18 (9-20) mg/dL Creatinine 0.80 (0.66-1.25) mg/dL Estimated GFR > 60.0 (>60) mL/min BUN/Creatinine Ratio 22.5 H (6-22) Glucose 120 H (80-110) mg/dL Calcium 9.7 (8.4-10.2) mg/dL Total Bilirubin 0.9 (0.2-1.3) mg/dL AST 29 (17-59) IU/L ALT 25 (21-72) IU/L Alkaline Phosphatase 82 (38-126) U/L Total Protein 7.4 (6.3-8.2) g/dL Albumin 4.2 (3.5-5.0) g/dL Globulin 3.2 (1.7-4.1) g/dL Albumin/Globulin Ratio 1.3 (1.0-2.8) Lipase 126 (23-300) U/L Urine RBC (0-5/HPF) Urine WBC (0-5/HPF) Ur Squamous Epith Cells (0-5/HPF) Urine Bacteria (None) Ur Culture Indicated? 07/27/18 Range/Units 20:45 WBC (4.5-11.0) X10^3/uL RBC (4.5-5.9) X10^6/uL Hgb (13.5-17.5) g/dL Hct (41-53) % MCV (80-100) fL MCH (26-34) PG MCHC (30-36) % RDW (11.6-14.8) % Plt Count (150-400) X10^3/uL Neut % (Auto) (50-75) % Lymph % (Auto) (25-40) % [place] % (Auto) (3-14) % Eos % (Auto) (2-4) % Baso % (Auto) (0-2) % Neut # (Auto) (4479-4265) /uL Lymph # (Auto) (4548-6632) /uL [place] # (Auto) (0-900) /uL Eos # (Auto) (0-450) /uL Baso # (Auto) (0-100) /uL PT (10.1-12.7) SECONDS INR (0.9-1.3) APTT (26.4-36.2) SECONDS Sodium (137-145) mmol/L Potassium (3.4-5.1) mmol/L Chloride (98-107) mmol/L Carbon Dioxide (22-32) mmol/L BUN (9-20) mg/dL Creatinine (0.66-1.25) mg/dL Estimated GFR (>60) mL/min BUN/Creatinine Ratio (6-22) Glucose (80-110) mg/dL Calcium (8.4-10.2) mg/dL Total Bilirubin (0.2-1.3) mg/dL AST (17-59) IU/L ALT (21-72) IU/L Alkaline Phosphatase (38-126) U/L Total Protein (6.3-8.2) g/dL Albumin (3.5-5.0) g/dL Globulin (1.7-4.1) g/dL Albumin/Globulin Ratio (1.0-2.8) Lipase (23-300) U/L Urine RBC 0-1/hpf (0-5/HPF) Urine WBC 0-1/hpf (0-5/HPF) Ur Squamous Epith Cells 0-1 /hpf (0-5/HPF) Urine Bacteria Occasional (0-1) (None) Ur Culture Indicated? Specimen cultured Point of care testing: Urine Dip Bedside Urine Glucose Negative Bedside Urine Bilirubin - Negative Bedside Urine Ketone +/- 5 Urine Specific [place] 1.015 Bedside Urine Occult Blood - Negative Bedside Urine pH 5.0 Bedside Urine Protein +/- 15 Bedside Urine Urobilinogen +/- 1mg Bedside Urine Nitrite - Negative Bedside Urine Leukocytes +/- 15 Esterase Discharge Plan Departure Patient Disposition: Admitted As Inpatient Clinical Impression: Diverticulitis of colon with perforation Qualifiers: Diverticulitis bleeding: with bleeding Qualified Code(s): K57.21 - Diverticulitis of large intestine with perforation and abscess with bleeding Discharge Date/Time: 07/27/18 21:35 Interventions: ED Discharge Assessment Last Done: 07/27/18 21:35 Admit Date/Time: 07/27/18 20:40 Admit Provider: Rafat Miguel <Donald Mcintosh DO - Last Filed: 07/28/18 01:30> Cosign ED Attending Cosignature Attestation: I was immediately available in the department for consultation. Documentation has been reviewed. I agree with assessment and plan.
--- NOTE | 2018-07-27 21:02 | P.HP_ITS ---
History of Present Illness Date Patient Seen: 07/27/18 Time Patient Seen: 20:30 Chief complaint: ABODOINAL PAIN FOR PAST 14 HOUR, BLOOD IN STOOL Narrative: The patient is a gentleman who developed pain early this morning it is low abdomen. Was principally between the umbilicus and the pubis. He said it felt like a hot ball was there. At this time the pain is seems to have pretty much gone away. He has had this before. He was treated for diverticulitis in the past. No CT was done at that time and apparently was treated empirically with Augmentin. That was in 2017. He has also had a colonoscopy in 2017. No polyps were found on that exam. He has had no nausea or vomiting. Little anorexic. He has had kidney stones in the past. The only operation has had was a lithotripsy. No operations on the abdomen. Patient has no blood in his urine. He had a small bowel movement here in the emergency room. Patient History Medical History (Updated 07/27/18 @ 21:00 by Rafat Miguel MD) Hypertension (Acute) BPH (benign prostatic hyperplasia) (Chronic) Hepatitis B (Chronic) Surgical History (Updated 07/27/18 @ 21:00 by Rafat Miguel MD) History of lithotripsy (Resolved) Social History Smoking Status: Former smoker Family & Social History Safety & Behavioral: Feels Safe in Current Yes Environment Tobacco & Substance use: Smoking Status Former smoker alcohol intake frequency 0-2 drinks per day Substance Use Type does not use Meds Home Medications Medication Instructions Recorded Confirmed Type amoxicillin-pot clavulanate 875 mg PO BID 10 Days #0 tab 02/04/17 Rx [Augmentin] hydrochlorothiazide 12.5 mg PO Q DAY #0 02/04/17 History losartan [Cozaar] 100 mg PO Q DAY #0 02/04/17 History metoprolol tartrate 50 mg PO Q DAY #0 02/04/17 History ascorbic acid (vitamin C) 500 mg PO QDAY #0 03/29/17 History felodipine 10 mg PO QDAY #0 03/29/17 History multivitamin [Multiple Vitamins] 1 tab PO QDAY #0 03/29/17 History potassium chloride 10 meq PO Q DAY #0 02/01/18 History vitamin B complex [B 1 tab PO QDAY #0 03/29/17 History Complex-Vitamin B12] Allergies Allergy/AdvReac Type Severity Reaction Status Date / Time No Known Drug Allergies Allergy Verified 07/27/18 15:40 Review of Systems Review of Systems Patient wears glasses. Denies double vision, pain is eyes, earaches or sore throat. No tooth aches or trouble swallowing. No cough, cold or asthma. No chest pain or prior heart attacks. He has had a cardiac direct Wolf for long time and has a cardiac murmur. He has had a cardiac workup because of irregularity and nothing was found. Patient denies any black or bloody bowel movements. No blood in his urine or dysuria. No seizures or blackouts. No anxiety or depression. No problems with unusual bruising or bleeding. Unaware of any problems with his pancreas liver or thyroid though he is aware that he has hepatitis-B. He has never had elevated liver function tests. Exam Vital Signs (past 8 hours): - 07/27/18 15:38 07/27/18 17:35 07/27/18 19:15 Temperature 99.0 F Pulse Rate 82 74 80 Respiratory Rate 16 11 L 14 Blood Pressure 170/95 H Blood Pressure [Left Arm] 144/74 H 161/83 H Pulse Oximetry 96 94 95 07/27/18 20:00 Temperature Pulse Rate 74 Respiratory Rate 18 Blood Pressure Blood Pressure [Left Arm] 139/72 Pulse Oximetry 95 Oxygen Delivery Method Room Air Narrative Exam Narrative: Operative pleasant gentleman in no apparent distress. His eyes are nonicteric. Pupils equal round reactive to light. Ears without lesion. Nasal septum is midline. Oral mucosa is pink and moist. There is no open lesions. His teeth were intact. No nodes in the neck or supraclavicular areas. Trachea is midline and mobile. No enlargement of his thyroid. Lungs are clear to auscultation without rales or rhonchi. Equal percussion. Heart regular rhythm and rate without gallop. He has occasional irregularity. Patient has a bruit the that is say harsh early systolic murmur heard best at the left apex and the right base. I do not appreciate any radiation or bruit in the neck. Patient's abdomen is protuberant. Difficult to tell but I believe it is also distended. Soft. He does have some voluntary guarding in the lower abdomen. When he relaxes he has some [id number] tenderness in the left lower abdomen. His extremities without cyanosis clubbing or edema. Normal adult hair pattern. 2+ pulses dorsalis pedis and tibialis posterior in the feet. No open skin lesions. Objective Imaging CT scan - abdomen: My impression: Patient has inflammation at the proximal sigmoid area. There is a small amount air outside the wall of the colon probably in the mesentery. Patient has a renal cyst. He also has cysts in his liver. The remainder of the abdomen and pelvis are pretty un remarkable. No abscess, phlegmon or free air or fluid. Labs Result Diagrams: 07/27/18 16:10 07/27/18 16:10 Labs: Laboratory Results - last 24 hr 07/27/18 07/27/18 07/27/18 16:10 16:10 16:10 WBC 14.4 H RBC 4.94 Hgb 14.7 Hct 43.0 MCV 87.1 MCH 29.8 MCHC 34.2 RDW 13.3 Plt Count 232 Neut % (Auto) 81.7 H Lymph % (Auto) 8.0 L [place] % (Auto) 9.6 Eos % (Auto) 0.3 L Baso % (Auto) 0.4 Neut # (Auto) 06615 H Lymph # (Auto) 1200 [place] # (Auto) 1400 H Eos # (Auto) 0 Baso # (Auto) 100 PT 12.1 INR 1.1 APTT 33 Sodium 138 Potassium 3.4 Chloride 103 Carbon Dioxide 27 BUN 18 Creatinine 0.80 Estimated GFR > 60.0 BUN/Creatinine Ratio 22.5 H Glucose 120 H Calcium 9.7 Total Bilirubin 0.9 AST 29 ALT 25 Alkaline Phosphatase 82 Total Protein 7.4 Albumin 4.2 Globulin 3.2 Albumin/Globulin Ratio 1.3 Lipase 126 Assessment & Plan Assessment & Plan narrative: 1. Acute diverticulitis with micro perforation. Recommend broad-spectrum antibiotics. Will admit to the hospital. 2. Hepatitis B chronic. No treatment at this time. Has never had abnormal liver tests and his PT INR normal here. 3. History of kidney stones post lithotripsy. Observed. No evidence of stones at this time. Problem resolved. 4. Gallstones. Incidental finding. Do not recommend any surgical intervention at this time. 5. Up-to-date on colonoscopy. Therefore it is unlikely that this micro perforation is due to malignancy. 6. Obesity with a BMI of 29.3. We will discuss weight loss. 7. Hypertension. Chronic. Continue p.o. medications from outpatient.
[2018-07-27 21:18] LABS: Bacteria Urine Occasional (0-1); Culture Indicated Urine Specimen Cultured; RBC Urine 0-1/HPF (0-5/HPF); Squamous Epithelial Cell Urine 0-1 /HPF (0-5/HPF); WBC Urine 0-1/HPF (0-5/HPF)
[2018-07-27 21:20] VITALS: BP 173/77; PULSE 72; RESP 20; TEMP 37.2; O2SAT 94
[2018-07-27 22:09] VITALS: BMI 29.2
[2018-07-27] MEDS: LACTATED RINGERS 1,000 ML 150 ML IV (22:27)
[2018-07-27] MEDS: PIPERACILLIN-TAZO 3.375 GM/50 ML FROZ.PIGGY IV (22:53)
[2018-07-27 23:46] VITALS: BP 143/84; PULSE 68; RESP 18; TEMP 37.6; O2SAT 97
[2018-07-27 23:50] VITALS: BMI 29.2
--- NOTE | 2018-07-27 23:55 | PC.NURSE ---
Addendum entered by Leonor Krueger R.N. 07/28/18 06:40: States he is feeling better this morning and passing more flatus. Slept only at intervals. Has had slight temp tonight at 99.7 and 99.6. Original Note: Patient is alert and oriented. Breath sounds CTA with RA sat of 97%. HRR. BP elevated at 143/84 which is improved over admit BP; per evening RN MD is aware of elevated BP. Denies nausea. BT present and is passing flatus but abdomen is distended and is tender in LLQ. Denies dysuria, frequency or urgency with urination. Independent with bed mobility. Denies pain. Does report 1 fall in past week; fall risk score is moderate so bed alarm is activated and patient verbalizes understanding to call for staff assist when getting out of bed.
[2018-07-28 03:42] VITALS: BP 128/58; PULSE 63; RESP 18; TEMP 37.6; O2SAT 96
[2018-07-28] MEDS: PIPERACILLIN-TAZO 3.375 GM/50 ML FROZ.PIGGY IV ×4 (03:55→21:07)
[2018-07-28 05:41] LABS: Add Manual Diff / Slide Review NO; Basophils Absolute Auto 100 /uL (0-100); Basophils Percent Auto 0.4 % (0-2); Eosinophils Absolute Auto 0 /uL (0-450); Eosinophils Percent Auto 0.1 % (2-4); Hematocrit 37.8 % (41-53); Hemoglobin 12.9 g/dL (13.5-17.5); Lymphocytes Absolute Auto 1500 /uL (1100-4500); Lymphocytes Percent Auto 11.6 % (25-40); Mean Corpuscular HGB Conc 34.2 % (30-36); Mean Corpuscular Hemoglobin 29.9 PG (26-34); Mean Corpuscular Volume 87.4 fL (80-100); Monocytes Absolute Auto 1400 /uL (0-900); Monocytes Percent Auto 10.5 % (3-14); Neutrophils Absolute Auto 10300 /uL (1500-7000); Neutrophils Percent Auto 77.4 % (50-75); Platelet Count 190 X10^3/uL (150-400); Red Blood Cell Count 4.32 X10^6/uL (4.5-5.9); White Blood Cell Count 13.3 X10^3/uL (4.5-11.0)
[2018-07-28] MEDS: LACTATED RINGERS 1,000 ML 150 ML IV ×3 (06:31→20:57)
[2018-07-28 07:30] VITALS: BP 140/77; PULSE 65; RESP 16; TEMP 36.6; O2SAT 97
--- NOTE | 2018-07-28 08:00 | PC.NURSE ---
Day Shift- Pt A&OX4, pleasant and cooperative, able to make needs known using call light. HX fall, Aware to call for SBA to BR when needed. IVF infusing well to left FA PIV. Tolerating clear liquid diet, Denies nausea, Abd soft and less distended than compared to yesterday. Passing flatus and belching. Tenderness to LLQ abd just above pelvic hair line. BT more active to upper left abd and left side abd compared to right side. HR 64 bpm and slightly irregular, no murmur heard upon auscultation. Pt states does have a history of HR irregularity. Denies chest pain. No further voiced concerns at this time. Call light within reach.
[2018-07-28] MEDS: hydroCHLOROthiazide 12.5 MG CAPSULE PO (09:00)
[2018-07-28] MEDS: POTASSIUM CHLORIDE 20 MEQ TAB PO (09:00)
[2018-07-28] MEDS: LOSARTAN 50 MG TABLET 100 MG PO (09:00)
[2018-07-28] MEDS: ENOXAPARIN 40 MG/0.4 ML SYRINGE SUBCUT (09:01)
--- NOTE | 2018-07-28 10:00 | PM.PN.1 ---
Subjective Date Patient Seen: 07/28/18 Time Patient Seen: 10:00 Interval history: The patient feels better than yesterday. Still passing gas. No bowel movements. Still some tenderness in the lower left abdomen. He feels that he is still distended. Exam Vital Signs (past 8 hours): - 07/28/18 03:42 07/28/18 07:30 Temperature 99.6 F 97.8 F Pulse Rate 63 65 Respiratory Rate 18 16 Blood Pressure 128/58 L 140/77 Pulse Oximetry 96 97 Oxygen Delivery Method Room Air Oxygen Flow Rate 0 Narrative Exam Narrative: Cooperative in no apparent distress. His lungs are clear to auscultation. Good air movement. Heart regular rate and rhythm. Soft or murmur than at admission. Suspect is heart is little less dynamic. Abdomen is distended but softer than yesterday. balling head tender in the left lower quadrant. Objective Labs Result Diagrams: 07/28/18 05:26 07/27/18 16:10 Labs: Laboratory Results - last 24 hr 07/27/18 07/27/18 07/27/18 16:10 16:10 16:10 WBC 14.4 H RBC 4.94 Hgb 14.7 Hct 43.0 MCV 87.1 MCH 29.8 MCHC 34.2 RDW 13.3 Plt Count 232 Neut % (Auto) 81.7 H Lymph % (Auto) 8.0 L [place] % (Auto) 9.6 Eos % (Auto) 0.3 L Baso % (Auto) 0.4 Neut # (Auto) 61575 H Lymph # (Auto) 1200 [place] # (Auto) 1400 H Eos # (Auto) 0 Baso # (Auto) 100 PT 12.1 INR 1.1 APTT 33 Sodium 138 Potassium 3.4 Chloride 103 Carbon Dioxide 27 BUN 18 Creatinine 0.80 Estimated GFR > 60.0 BUN/Creatinine Ratio 22.5 H Glucose 120 H Calcium 9.7 Total Bilirubin 0.9 AST 29 ALT 25 Alkaline Phosphatase 82 Total Protein 7.4 Albumin 4.2 Globulin 3.2 Albumin/Globulin Ratio 1.3 Lipase 126 Urine RBC Urine WBC Ur Squamous Epith Cells Urine Bacteria Ur Culture Indicated? 07/27/18 07/28/18 20:45 05:26 WBC 13.3 H RBC 4.32 L Hgb 12.9 L Hct 37.8 L MCV 87.4 MCH 29.9 MCHC 34.2 RDW 13.0 Plt Count 190 Neut % (Auto) 77.4 H Lymph % (Auto) 11.6 L [place] % (Auto) 10.5 Eos % (Auto) 0.1 L Baso % (Auto) 0.4 Neut # (Auto) 78913 H Lymph # (Auto) 1500 [place] # (Auto) 1400 H Eos # (Auto) 0 Baso # (Auto) 100 PT INR APTT Sodium Potassium Chloride Carbon Dioxide BUN Creatinine Estimated GFR BUN/Creatinine Ratio Glucose Calcium Total Bilirubin AST ALT Alkaline Phosphatase Total Protein Albumin Globulin Albumin/Globulin Ratio Lipase Urine RBC 0-1/hpf Urine WBC 0-1/hpf Ur Squamous Epith Cells 0-1 /hpf Urine Bacteria Occasional (0-1) Ur Culture Indicated? Specimen cultured Assessment & Plan Assessment & Plan narrative: Diverticulitis acute. Continue IV antibiotics. White blood cell count is down a bit and there are less segs on the differential. Improving but not yet to the point of advancing his diet. Hypertension. Blood pressure number seemed to be acceptable. He is on his outpatient meds. We will continue those. DVT prophylaxis. Continue Lovenox.
--- NOTE | 2018-07-28 10:04 | P.PN_ITS ---
Subjective Date Patient Seen: 07/28/18 Time Patient Seen: 10:00 Interval history: The patient feels better than yesterday. Still passing gas. No bowel movements. Still some tenderness in the lower left abdomen. He feels that he is still distended. Exam Vital Signs (past 8 hours): - 07/28/18 03:42 07/28/18 07:30 Temperature 99.6 F 97.8 F Pulse Rate 63 65 Respiratory Rate 18 16 Blood Pressure 128/58 L 140/77 Pulse Oximetry 96 97 Oxygen Delivery Method Room Air Oxygen Flow Rate 0 Narrative Exam Narrative: Cooperative in no apparent distress. His lungs are clear to auscultation. Good air movement. Heart regular rate and rhythm. Soft or murmur than at admission. Suspect is heart is little less dynamic. Abdomen is distended but softer than yesterday. flume tender in the left lower quadrant. Objective Labs Result Diagrams: 07/28/18 05:26 07/27/18 16:10 Labs: Laboratory Results - last 24 hr 07/27/18 07/27/18 07/27/18 16:10 16:10 16:10 WBC 14.4 H RBC 4.94 Hgb 14.7 Hct 43.0 MCV 87.1 MCH 29.8 MCHC 34.2 RDW 13.3 Plt Count 232 Neut % (Auto) 81.7 H Lymph % (Auto) 8.0 L [place] % (Auto) 9.6 Eos % (Auto) 0.3 L Baso % (Auto) 0.4 Neut # (Auto) 66499 H Lymph # (Auto) 1200 [place] # (Auto) 1400 H Eos # (Auto) 0 Baso # (Auto) 100 PT 12.1 INR 1.1 APTT 33 Sodium 138 Potassium 3.4 Chloride 103 Carbon Dioxide 27 BUN 18 Creatinine 0.80 Estimated GFR > 60.0 BUN/Creatinine Ratio 22.5 H Glucose 120 H Calcium 9.7 Total Bilirubin 0.9 AST 29 ALT 25 Alkaline Phosphatase 82 Total Protein 7.4 Albumin 4.2 Globulin 3.2 Albumin/Globulin Ratio 1.3 Lipase 126 Urine RBC Urine WBC Ur Squamous Epith Cells Urine Bacteria Ur Culture Indicated? 07/27/18 07/28/18 20:45 05:26 WBC 13.3 H RBC 4.32 L Hgb 12.9 L Hct 37.8 L MCV 87.4 MCH 29.9 MCHC 34.2 RDW 13.0 Plt Count 190 Neut % (Auto) 77.4 H Lymph % (Auto) 11.6 L [place] % (Auto) 10.5 Eos % (Auto) 0.1 L Baso % (Auto) 0.4 Neut # (Auto) 03971 H Lymph # (Auto) 1500 [place] # (Auto) 1400 H Eos # (Auto) 0 Baso # (Auto) 100 PT INR APTT Sodium Potassium Chloride Carbon Dioxide BUN Creatinine Estimated GFR BUN/Creatinine Ratio Glucose Calcium Total Bilirubin AST ALT Alkaline Phosphatase Total Protein Albumin Globulin Albumin/Globulin Ratio Lipase Urine RBC 0-1/hpf Urine WBC 0-1/hpf Ur Squamous Epith Cells 0-1 /hpf Urine Bacteria Occasional (0-1) Ur Culture Indicated? Specimen cultured Assessment & Plan Assessment & Plan narrative: Diverticulitis acute. Continue IV antibiotics. White blood cell count is down a bit and there are less segs on the differential. Improving but not yet to the point of advancing his diet. Hypertension. Blood pressure number seemed to be acceptable. He is on his outpatient meds. We will continue those. DVT prophylaxis. Continue Lovenox.
[2018-07-28 11:00] VITALS: BP 139/80; PULSE 61; RESP 16; TEMP 37.1; O2SAT 95
[2018-07-28] MEDS: FELODIPINE ER 5 MG TAB 10 MG PO (11:37)
[2018-07-28] MEDS: METOPROLOL ER 50 MG TABLET PO (11:37)
--- NOTE | 2018-07-28 11:58 | CM.IDA ---
Initial DCP Assessment Note: Pt is a 73 yo male, resident of [place]. Pt admitted w/acute diverticulitis w/ micro perf, conservative management of IV abx and managed by general surgery. PCP: Dr Jorge in [place] Payer: Medicare/redealize Met w/pt and his Veronica, explained role. Pt is mostly healthy, active and indp at baseline and hopes to return home before so that he and his can go to [place] as planned. No SW needs identified at this time. SENIOR PROJECT ENGINEER following in case any DC needs or concerns arise. GEORGES Carrasquillo Discharge Planning/Care Management CM Discharge Assessment Start: 07/28/18 11:56 Freq: Status: Active Protocol: Document 07/28/18 11:56 JOHAN (Rec: 07/28/18 11:57 JOHAN [id number]) Discharge Planning Assessment Assigned Cop GEORGES Rowell DPOA/Assigned Designee Name Veronica Mistry, spouse Contact Information [phone] Advance Directives? No Advance Directives on File No History Provided By Patient Significant Other Prior Living Arrangements House Household Members spouse Type of transporation used prior to Drives own vehicle admit Independent with ADL's Yes Is patient alert and oriented? Yes Barriers to Discharge No Discharge Plan Home Transportation Arrangement Spouse Referrals Initiated None needed Whiteboard Updated in Patient Room with Yes name and ext. # of Cop Review Status In Process
[2018-07-28 16:07] VITALS: BP 122/70; PULSE 67; RESP 18; TEMP 37.5; O2SAT 97
[2018-07-28 20:28] VITALS: BP 132/62; PULSE 69; RESP 18; TEMP 37.6; O2SAT 96
[2018-07-28 23:31] VITALS: BP 113/59; PULSE 64; RESP 16; TEMP 37.5; O2SAT 95
[2018-07-29] MEDS: PIPERACILLIN-TAZO 3.375 GM/50 ML FROZ.PIGGY IV ×5 (04:06→22:08)
[2018-07-29 04:42] VITALS: BP 128/66; PULSE 60; RESP 16; TEMP 37.1; O2SAT 94
[2018-07-29] MEDS: LACTATED RINGERS 1,000 ML 150 ML IV ×2 (05:12→21:27)
[2018-07-29 08:00] VITALS: BP 124/89; PULSE 66; RESP 16; TEMP 36.6; O2SAT 95
[2018-07-29] MEDS: POTASSIUM CHLORIDE 20 MEQ TAB PO (08:24)
[2018-07-29] MEDS: ENOXAPARIN 40 MG/0.4 ML SYRINGE SUBCUT (08:25)
[2018-07-29] MEDS: FELODIPINE ER 5 MG TAB 10 MG PO (08:25)
[2018-07-29] MEDS: hydroCHLOROthiazide 12.5 MG CAPSULE PO (08:26)
[2018-07-29] MEDS: METOPROLOL ER 50 MG TABLET PO (08:27)
--- NOTE | 2018-07-29 08:40 | PM.PN.1 ---
Subjective Date Patient Seen: 07/29/18 Time Patient Seen: 08:43 Interval history: Patient is feeling a little better. No real pain unless he is pressed on. Has began to have bowel movements. No mucus. Passing flatus. Feels less distended. Exam Vital Signs (past 8 hours): - 07/29/18 04:42 Temperature 98.8 F Pulse Rate 60 Respiratory Rate 16 Blood Pressure 128/66 Pulse Oximetry 94 Oxygen Delivery Method Room Air Oxygen Flow Rate 0 Narrative Exam Narrative: Abdomen is protuberant distended but soft. Still with some left lower quadrant tenderness on moderate palpation. Objective Labs Result Diagrams: 07/28/18 05:26 07/27/18 16:10 Assessment & Plan Assessment & Plan narrative: Patient is slowly improving. Continue present management.
[2018-07-29] MEDS: LOSARTAN 50 MG TABLET 100 MG PO (09:57)
[2018-07-29 12:00] VITALS: RESP 16; O2SAT 96
--- NOTE | 2018-07-29 12:22 | PC.NURSE ---
Am shift Pt is a/o x4, up to BR with SBA. Gait steady. Pt reports Mild discomfort 1/10 to ABD, mild distention with pain on palpation to LLQ. BT+ hyperactive. Flatus +, passing small hard pebble like stools. Using light for needs. Dr Miguel into update PT on POC.
[2018-07-29 16:03] VITALS: BP 131/72; PULSE 65; RESP 16; TEMP 36.8; O2SAT 97
--- NOTE | 2018-07-29 17:24 | PC.NURSE ---
EVENING Shift pt AO and receptive to care. Up IND in room, using urinal with ample output. LR infusing at 150/hr and intermittent ABX. Reporting mild discomfort, 0/10 pain, and states is distention is decreasing. Hasn't passed any gas since this morning. Bowel tones active to 3/4 quadrants (URQ, LRQ, & LLQ). pt also reporting feeling better than yesterday and that he is starting to gain an appetite. Awaiting POC from Dr. Miguel, but Dr discussed possibility of advancing diet in AM in hopes to DC tomorrow.
[2018-07-29 19:37] VITALS: BP 141/85; PULSE 60; RESP 14; TEMP 37.3; O2SAT 96
[2018-07-29 23:21] VITALS: BP 143/70; PULSE 59; RESP 20; TEMP 36.6; O2SAT 95
--- NOTE | 2018-07-29 23:39 | PC.NURSE ---
Patient is alert and oriented. Breath sounds CTA with RA sat of 95%. HRR. BP elevated at 143/70; is on antihypertensives and will continue to trend. Denies nausea. BT present and is passing flatus. Remains distended but soft; tender to palpation in LLQ. Reports he has had small loose BM's. Denies urinary urgency or frequency but feels abdominal pressure when needing to urinate. Denies abdominal pain at this time. Independent with mobility. Fall risk score is moderate but is steady on feet so no alarm is being used at this time.
[2018-07-30] VITALS (7 sets, daily range): BP systolic 125–157; BP diastolic 66–83; PULSE 58–68; RESP 17–20; TEMP 36.7–37.2; O2SAT 95–98; BMI 29.2
[2018-07-30] MEDS: PIPERACILLIN-TAZO 3.375 GM/50 ML FROZ.PIGGY IV ×4 (04:00→22:15)
[2018-07-30] MEDS: LACTATED RINGERS 1,000 ML 150 ML IV ×3 (04:01→18:06)
[2018-07-30] MEDS: FELODIPINE ER 5 MG TAB 10 MG PO (09:17)
[2018-07-30] MEDS: LOSARTAN 50 MG TABLET 100 MG PO (09:17)
[2018-07-30] MEDS: METOPROLOL ER 50 MG TABLET PO (09:18)
[2018-07-30] MEDS: hydroCHLOROthiazide 12.5 MG CAPSULE PO (09:18)
[2018-07-30] MEDS: POTASSIUM CHLORIDE 20 MEQ TAB PO (09:18)
[2018-07-30] MEDS: ENOXAPARIN 40 MG/0.4 ML SYRINGE SUBCUT (09:18)
--- NOTE | 2018-07-30 10:13 | PC.NURSE ---
Addendum entered by Charo Muir R.N. 07/30/18 12:45: pAt this time 1240, pt has reported having very small BM's with each void. Pt describes as less than 15mls of liquid BM with brown sediment at bottom of toilet bowl. Original Note: Day Shift- Abd soft, tender with palpation to LLQ above pelvic line. Less bloating each day and does vary with gas build up/flatus. Still passing flatus. Had moderate watery stool, dark brown in color with sediment. Denies nausea, tolerating clear liquid diet. IVF infusing well to left FA PIV. Pt up indep in room to BR with steady gait, denies light-headedness or dizziness. Plan of care discussed, pt had questions regarding diet change timeline and moving forward as to what to eat when he is on his trip if able to discharge tomorrow. Awaiting for physician updated plan of care.
[2018-07-30 10:23] LABS: Add Manual Diff / Slide Review NO; Basophils Absolute Auto 0 /uL (0-100); Basophils Percent Auto 0.2 % (0-2); Eosinophils Absolute Auto 100 /uL (0-450); Eosinophils Percent Auto 1.2 % (2-4); Hematocrit 38.9 % (41-53); Hemoglobin 13.2 g/dL (13.5-17.5); Lymphocytes Absolute Auto 1300 /uL (1100-4500); Lymphocytes Percent Auto 16.2 % (25-40); Mean Corpuscular HGB Conc 33.9 % (30-36); Mean Corpuscular Hemoglobin 29.7 PG (26-34); Mean Corpuscular Volume 87.5 fL (80-100); Monocytes Absolute Auto 800 /uL (0-900); Monocytes Percent Auto 10.1 % (3-14); Neutrophils Absolute Auto 5700 /uL (1500-7000); Neutrophils Percent Auto 72.3 % (50-75); Platelet Count 225 X10^3/uL (150-400); Red Blood Cell Count 4.44 X10^6/uL (4.5-5.9); White Blood Cell Count 7.9 X10^3/uL (4.5-11.0)
--- NOTE | 2018-07-30 17:57 | PM.PN.1 ---
Subjective Date Patient Seen: 07/30/18 Time Patient Seen: 17:57 Interval history: Patient feels a lot better. Has had multiple liquid bowel movements today. Tolerating p.o. well. Exam Vital Signs (past 8 hours): - 07/30/18 12:20 07/30/18 15:40 Temperature 98.0 F 98.0 F Pulse Rate 58 L 58 L Respiratory Rate 18 20 Blood Pressure 155/76 H 144/79 H Pulse Oximetry 96 98 Oxygen Delivery Method Room Air Oxygen Flow Rate 0 Const Other: Remains afebrile. Abdomen is protuberant soft. No tenderness today at all. He has had multiple bowel movements today. Blood pressure okay. Pulse is in the 50s and 60s but patient is beta blocked. He had a very mild anemia. Objective Labs Result Diagrams: 07/30/18 09:28 07/27/18 16:10 Labs: Laboratory Results - last 24 hr 07/30/18 09:28 WBC 7.9 RBC 4.44 L Hgb 13.2 L Hct 38.9 L MCV 87.5 MCH 29.7 MCHC 33.9 RDW 13.0 Plt Count 225 Neut % (Auto) 72.3 Lymph % (Auto) 16.2 L [place] % (Auto) 10.1 Eos % (Auto) 1.2 L Baso % (Auto) 0.2 Neut # (Auto) 5700 Lymph # (Auto) 1300 [place] # (Auto) 800 Eos # (Auto) 100 Baso # (Auto) 0 Assessment & Plan Assessment & Plan narrative: White blood cell count is now normal. Patient's intestine is functioning. Will advance him to a low residue diet. Probable discharge tomorrow midday. Will switch to p.o. antibiotics in the morning. C diff ordered. Make sure that the diarrhea that he has is just due to the antibiotics and not due to Clostridium difficile overgrowth. We will continue his DVT prophylaxis and his treatment of his hypertension. Not sure if the very mild anemia is significant. May just be related to fluid retention in illness. He had a recent colonoscopy 2 years ago. Not really having out any upper GI symptoms. Will monitor.
[2018-07-30 21:33] LABS: Clostridium Difficile Tox PCR Negative for C. diff
--- NOTE | 2018-07-31 00:57 | PC.NURSE ---
Addendum entered by Leonor Krueger R.N. 07/31/18 06:06: Sleeping only at intervals. Reports 1 small liquid stool tonight. Original Note: Patient is alert and oriented. Breath sounds CTA with RA sat of 96%. HRR. Denies nausea; continues on clear liquid diet. BT present and is passing flatus but has had no further stools since 1800. Denies dysuria, frequency or urgency. Independent with mobility. Denies pain or abdominal tenderness. Fall risk score is low.
[2018-07-31] MEDS: PIPERACILLIN-TAZO 3.375 GM/50 ML FROZ.PIGGY IV ×2 (03:47→11:46)
[2018-07-31 05:27] VITALS: BP 138/74; PULSE 58; RESP 17; TEMP 36.6; O2SAT 97
[2018-07-31 08:00] VITALS: BP 125/78; PULSE 51; RESP 18; TEMP 36.9; O2SAT 97
[2018-07-31] MEDS: LACTATED RINGERS 1,000 ML 150 ML IV (08:09)
[2018-07-31] MEDS: LOSARTAN 50 MG TABLET 100 MG PO (08:18)
[2018-07-31] MEDS: METOPROLOL ER 50 MG TABLET PO (08:18)
[2018-07-31] MEDS: FELODIPINE ER 5 MG TAB 10 MG PO (08:18)
[2018-07-31 13:00] VITALS: BP 133/80; PULSE 60; RESP 18; TEMP 36.6; O2SAT 97
--- NOTE | 2018-07-31 13:35 | PC.NURSE ---
Day Shift- Pt tolerating low residue diet for breakfast and lunch. Pt had apple juice and slovenian toast for breakfast and for lunch had a sandwich, cottage cheese and an ensure clear drink. Denies nausea, abd pain, states mild bloating, passing flatus and belching. Ambulated in halls indep with steady gait. IVF infusing well to left FA PIV, voiding qs. BM's have been small loose, brown with sediment at bottom of toilet bowl.
--- NOTE | 2018-07-31 14:57 | PM.DS.1 ---
History of Present Illness Chief complaint: ABODOINAL PAIN FOR PAST 14 HOUR, BLOOD IN STOOL Narrative: The patient is a gentleman who developed pain early this morning it is low abdomen. Was principally between the umbilicus and the pubis. He said it felt like a hot ball was there. At this time the pain is seems to have pretty much gone away. He has had this before. He was treated for diverticulitis in the past. No CT was done at that time and apparently was treated empirically with Augmentin. That was in 2017. He has also had a colonoscopy in 2017. No polyps were found on that exam. He has had no nausea or vomiting. Little anorexic. He has had kidney stones in the past. The only operation has had was a lithotripsy. No operations on the abdomen. Patient has no blood in his urine. He had a small bowel movement here in the emergency room. Discharge Providers Date of admission: 07/27/18 20:40 Discharge Date: 07/31/18 Consults: 07/27/18 22:07 Consult to Discharge Planning Routine Comment: 07/27/18 23:50 Consult to Dietitian, Adult Routine Comment: Reason For Exam: low MNA score Discharge provider: Rafat Miguel MD Summary Discharge Diagnosis: Acute diverticulitis sigmoid colon with microperforation Hypertension essential controlled with medication. Chronic problem. Diarrhea as acute secondary to antibiotic use. Hospital Course: The patient was admitted and placed on clear liquid diet. He was given broad-spectrum antibiotics Zosyn. His pain markedly improved quickly. He continued to pass flatus and began to have liquid bowel movements. His white blood cell count normalized. He tolerated a low residue diet and was discharged to follow up in the office. He was discharged on Cipro 500 b.i.d. and Flagyl 500 t.i.d.. He was advised not to use any alcohol. He has had a recent colonoscopy. Therefore he probably is not her in need of another to rule out a perforated tumor as the cause of his diverticulitis. Exam Vital Signs (past 8 hours): - 07/31/18 08:00 07/31/18 13:00 Temperature 98.5 F 97.9 F Pulse Rate 51 L 60 Respiratory Rate 18 18 Blood Pressure 125/78 133/80 Pulse Oximetry 97 97 Oxygen Delivery Method Room Air Oxygen Flow Rate 0 Narrative Exam Narrative: Lungs are clear to auscultation. No rales or rhonchi. Heart regular rate and rhythm without murmur gallop. Abdomen is protuberant and soft. There is no tenderness. No obvious hernias. Objective Labs Result Diagrams: 07/30/18 09:28 07/27/18 16:10 Labs: Laboratory Results - last 24 hr 07/30/18 19:04 C. difficile Tox (PCR) Negative for c. diff Discharge Plan Discharge Plan Discharge Problem: Diverticulitis of colon with perforation Patient Disposition: Home Discharge Med Rec/Prescriptions Prescriptions: New metronidazole [Flagyl] 500 mg tablet 500 mg PO TID Qty: 15 RF: 0 ciprofloxacin HCl [Cipro] 500 mg tablet 500 mg PO BID Qty: 10 RF: 0 Continued losartan [Cozaar] 25 mg tablet 100 mg PO Q DAY Qty: 0 RF: 0 hydrochlorothiazide 12.5 mg capsule 12.5 mg PO Q DAY Qty: 0 RF: 0 metoprolol tartrate 25 mg tablet 50 mg PO Q DAY Qty: 0 RF: 0 potassium chloride 10 MEQ capsule, extended release 10 meq PO Q DAY Qty: 0 RF: 0 multivitamin [Multiple Vitamins] 1 EACH tablet 1 tab PO QDAY Qty: 0 RF: 0 felodipine 10 MG tablet extended release 24 hr 10 mg PO QDAY Qty: 0 RF: 0 vitamin B complex [B Complex-Vitamin B12] 1 EACH tablet 1 tab PO QDAY Qty: 0 RF: 0 ascorbic acid (vitamin C) 500 MG tablet 500 mg PO QDAY Qty: 0 RF: 0 B Complex-Vitamin B12 500 mcg capsule 1 PO DAILY RF: 0 lutein 1 PO DAILY RF: 0 Follow up/Referrals: Rafat Miguel MD [Physician] - 08/09/18 2:00 pm Provider Discharge Instructions Diet: Diet as Tolerated Diet comment: Low residue Activity: As tolerated Discharge Data Attending Provider: Rafat Miguel Admit Date/Time: 07/27/18 20:40
--- NOTE | 2018-07-31 15:09 | DIET.PN ---
f/u provided pt education using handout on low-residue diet, continue to follow for one week then slowly add fiberous foods as tolerated. Pt able to teach back material and ordered appropriate meal from hospital menu. Pt tolerating low residue diet well. Educated pt c handout on high fiber/high liquid diet to manage diverticulosis in the future, pt had good understanding, able to teach back. recc pt referral for outpatient nut ed if needs further support from [facility]
--- NOTE | 2018-07-31 15:25 | CM.DPNOTE ---
DC Note: Pt medically cleared today and will DC back home w/supportive spouse and close outpt f/u. No barriers to safe return home. GEORGES Carrasquillo
== END 2018-07-31 16:45 | disposition home or self-care (01) | DRG 378 ==
LOC: ED 16:00 → AC 20:41
PROVIDERS: Emergency Medicine; Admitting Provider Specialist; Emergency Provider Nurse Practitioner Family; Visit Provider Specialist
DX: K57.21 Diverticulitis of large intestine with perforation and abscess with bleeding (principal); B18.1 Chronic viral hepatitis B without delta-agent; K52.1 Toxic gastroenteritis and colitis; I10 Essential (primary) hypertension; Z87.891 Personal history of nicotine dependence; T36.95XA Adverse effect of unspecified systemic antibiotic, initial encounter
CPT/HCPCS: 36415; 36591; 74177; 80053; 81003; 81015; 83690; 85025; 85610; 85730; 87086; 87493; 93005; 96365; 96366; 96368; 99222; 99231; 99238; 99283; 99285; J1650; J1956; J2543; Q9967

== ENCOUNTER → 2018-12-04 13:26 | Outpatient (CLI) | payer MEDICARE, OTHER, SELFPAY ==
[2018-12-04 14:52] LABS: Prostate Specific Antigen 5.28 ng/mL (0.10-4.00)
== END ==
PROVIDERS: Family Provider Family Medicine; PCP Family Medicine; Visit Provider Urology
DX: R97.20 Elevated prostate specific antigen [PSA] (principal)
CPT/HCPCS: 36415; 84153

== ENCOUNTER 2019-01-29 10:06 | Emergency (ER) | payer MEDICARE, OTHER, SELFPAY ==
[2019-01-29 10:22] VITALS: BMI 29.2
[2019-01-29 10:30] VITALS: BP 130/94; PULSE 153; RESP 16; O2SAT 98
[2019-01-29] MEDS: dilTIAZem 5 MG/ML SDV 25 MG IV (10:51)
--- NOTE | 2019-01-29 10:57 | ED.ARRPALP ---
HPI - Arrhythmia/Palpitations General Chief Complaint: Arrhythmia/Palpitations Stated Complaint: irregular heartbeat going on Time Seen by Provider: 01/29/19 10:26 Source: patient Mode of arrival: Ambulatory Limitations: no limitations History of Present Illness HPI narrative: Patient comes emergency department complaining of an irregular heartbeat that intensified several days ago. The patient states he has had some irregularity to his heart rhythm for several decades, but that he noticed that his heart seemed to be especially irregular 3 4 days ago. He denies any chest pain or shortness of breath. He states he was able to do his normal workouts without any difficulty. He states he did not have any nausea, vomiting, lightheadedness, or facial sweating. The patient states he does not have a history of any sort of diagnosed dysrhythmia and has no history of coronary artery disease. No other complaints at this time. Related Data Home Medications Medication Instructions Recorded Confirmed hydrochlorothiazide 12.5 mg PO DAILY #0 02/04/17 01/29/19 ascorbic acid (vitamin C) 500 mg PO DAILY #0 03/29/17 01/29/19 felodipine 10 mg PO DAILY #0 03/29/17 01/29/19 multivitamin [Multiple Vitamins] 1 tab PO DAILY #0 03/29/17 08/09/18 potassium chloride 10 meq PO DAILY #0 03/29/17 01/29/19 lutein 1 tab PO DAILY 07/27/18 01/29/19 vitamin B complex 1 tab PO DAILY #0 07/27/18 08/09/18 losartan 100 mg PO DAILY 01/29/19 01/29/19 metoprolol succinate [Toprol XL] 50 mg PO DAILY 01/29/19 01/29/19 tadalafil [Cialis] 0 mg PO DIRECTED 01/29/19 01/29/19 Previous Rx's Medication Instructions Recorded apixaban [Eliquis] 5 mg PO BID #60 tab 01/29/19 metoprolol succinate 50 mg PO BID #120 each 01/29/19 Allergies Allergy/AdvReac Type Severity Reaction Status Date / Time No Known Drug Allergies Allergy Verified 01/29/19 10:22 Review of Systems Constitutional Constitutional: Denies chills, Denies fatigue, Denies fever(s), Denies frequent falls, Denies lethargy and Denies weakness Eyes Eyes: Denies change in vision, Denies eye discharge, Denies irritation and Denies loss of vision ENT Ears, Nose, Mouth, and Throat: Denies change in voice, Denies dizziness, Denies neck pain, Denies sore throat and Denies throat swelling Cardiovascular Cardiovascular: Denies chest pain, Denies irregular heart rhythm, Denies lightheadedness, Reports palpitations, Denies dyspnea, Denies dyspnea on exertion and Denies orthopnea Respiratory Respiratory: Denies cough, Denies dyspnea, Denies dyspnea on exertion and Denies wheezing Gastrointestinal Gastrointestinal: Denies abdominal pain, Denies change in bowel habits, Denies diarrhea, Denies nausea and Denies vomiting Genitourinary Genitourinary: Denies hematuria, Denies flank pain, Denies urinary incontinence and Denies urinary urgency Musculoskeletal Musculoskeletal: Denies back pain, Denies muscle weakness, Denies neck pain, Denies numbness and Denies tingling Integumentary/Breasts Skin/Breast: Denies pruritus, Denies erythema, Denies rash and Denies wounds Neurologic Neurologic: Denies behavioral changes, Denies confusion, Denies dizziness, Denies frequent falls, Denies loss of vision, Denies numbness, Denies tingling and Denies weakness Psychiatric Psychiatric: Denies anxiety, Denies behavioral changes, Denies confusion, Denies depression, Denies homicidal ideation and Denies suicidal ideation Endocrine Endocrine: Denies fatigue, Denies flushing and Reports palpitations Hematologic/Lymphatic Hematologic/Lymphatic: Denies easy bruising Allergic/Immunologic Allergic/Immunologic: Denies urticaria, Denies throat swelling and Denies wheezing Patient History Medical History BPH (benign prostatic hyperplasia) (Chronic) Hepatitis B (Chronic) Hx of lipoma (Resolved) Hypertension (Acute) Surgical History History of lithotripsy (Resolved) S/P ureteral stent placement (Resolved) Family History Mother Hypertension Cancer Diabetes mellitus Grandfather Heart disease Grandmother Stroke Son Cancer Social History household members: spouse Smoking Status: Former smoker alcohol intake: current alcohol intake frequency: 0-2 drinks per day Substance Use Type: does not use Exam Initial Vital Signs Initial Vital Signs: Vital Signs Pulse Rate 153 H 01/29/19 10:30 Respiratory Rate 16 01/29/19 10:30 Blood Pressure 130/94 H 01/29/19 10:30 Pulse Oximetry 98 01/29/19 10:30 Const General: cooperative and well developed Nutritional Appearance: well nourished Orientation: alert, awake, oriented x3 and not confused HENNY Head: normocephalic and atraumatic Ears: external ears normal Nose: external nose normal and No nasal discharge Face and sinus: face symmetric and No dry mucous membranes Mouth: oral mucosae normal and moist mucous membranes Teeth and gingiva: dentition normal Eyes General: appearance normal, both eyes and all related structures Eyelids: eyelids normal Conjunctivae: conjunctivae normal Sclera: sclerae normal Pupils: PERRL EOM: EOM intact bilaterally Neck Neck: normal visual inspection, trachea midline, No lymphadenopathy, No midline deformity and No JVD Lymphatic: No lymphedema Chest Chest: normal inspection of the chest Resp Effort & Inspection: normal respiratory effort, able to speak in complete sentences, no respiratory distress and no use of accessory muscles Auscultation: clear to auscultation bilaterally, no rales, no rhonchi and no wheezes Cardio Rate: tachycardic Rhythm: abnormal rhythm irregularly irregular Heart Sounds: no click, no gallops, no murmurs and no rubs Pulses: normal peripheral pulses GI Inspection: non-distended Palpation: soft, no hepatosplenomegaly, No guarding, No pulsatile mass and No tender Auscultation: normal bowel sounds Back/Spine/Pelvis Back: No CVA tenderness Cervical Spine: cervical ROM normal and No pain with cervical ROM Thoracic/Lumbar Spine: thoracic and lumbar spine normal to inspection Skin General: no rashes or lesions noted, No jaundice and No petechiae Neuro General: alert, oriented x3, gait normal and no focal motor deficits Speech: speech normal Extrem General: full ROM, no clubbing, cyanosis or edema, no pedal edema and no calf tenderness Psych Appearance: well kempt Mental Status: mental status grossly normal Attitude: cooperative Thought Content: normal and suicidality Judgment: judgment good Course Course Course Narrative: The patient was worked up with labs and EKG in the emergency department. He had a significantly elevated heart rate in the 150s to 160s on arrival, but responded extremely well to a single IV dose of Cardizem 25 mg. His heart rate dropped into the 80s, where it stayed in the emergency department. Labs were unremarkable. EKG showed AFib with RVR. Spoke with Dr. Vail, who is on-call for Cardiology, and he recommended Eliquis 5 mg b.i.d. and increasing was patient's metoprolol to 50 mg in the morning and 50 mg in the evening. He stated he would like the patient to follow up in their clinic next week himself or 1 of his associates. Explained all of this to the patient, who expressed understanding. We have discussed home management of symptoms, as well as the usual indications for return. Orders Ordered: Discontinued Medications Diltiazem HCl (Cardizem) 25 mg IV NOW ONE Stop: 01/29/19 10:41 Last Admin: 01/29/19 10:51 Dose: 25 mg Documented by: TRENTON Sodium Chloride (Normal Saline 0.9%) 1,000 mls @ 1,000 mls/hr IV BOLUS ONE Stop: 01/29/19 11:55 Last Infusion: 01/29/19 12:15 Dose: 0 mls/hr Documented by: Admin: 01/29/19 11:00 Dose: 1,000 mls/hr Documented by: TRENTON Vital Signs Vital signs: Vital Signs - 8 hr 01/29/19 10:30 Pulse Rate 153 H Respiratory Rate 16 Blood Pressure [Right Arm] 130/94 H Pulse Oximetry 98 MDM - Arrhythmia/Palpitations Medical Records Attestation: I reviewed the patient's medical records. Lab Data Attestation: I reviewed the patient's lab results. Result diagrams: 01/29/19 10:36 01/29/19 10:36 Labs: Lab Results 01/29/19 01/29/19 01/29/19 Range/Units 10:36 10:36 10:36 WBC 10.4 (4.5-11.0) X10^3/uL RBC 5.41 (4.5-5.9) X10^6/uL Hgb 16.2 (13.5-17.5) g/dL Hct 48.1 (41-53) % MCV 88.8 (80-100) fL MCH 30.0 (26-34) PG MCHC 33.8 (30-36) % RDW 13.4 (11.6-14.8) % Plt Count 284 (150-400) X10^3/uL Neut % (Auto) 67.7 (50-75) % Lymph % (Auto) 20.7 L (25-40) % [place] % (Auto) 10.7 (3-14) % Eos % (Auto) 0.5 L (2-4) % Baso % (Auto) 0.4 (0-2) % Neut # (Auto) 7000 (0141-4111) /uL Lymph # (Auto) 2100 (7441-1110) /uL [place] # (Auto) 1100 H (0-900) /uL Eos # (Auto) 100 (0-450) /uL Baso # (Auto) 0 (0-100) /uL PT 12.3 (10.1-12.7) SECONDS INR 1.1 (0.9-1.3) Sodium 139 (137-145) mmol/L Potassium 4.6 (3.4-5.1) mmol/L Chloride 108 H (98-107) mmol/L Carbon Dioxide 24 (22-32) mmol/L BUN 24 H (9-20) mg/dL Creatinine 0.90 (0.66-1.25) mg/dL Estimated GFR > 60.0 (>60) mL/min BUN/Creatinine Ratio 26.7 H (6-22) Glucose 116 H (80-110) mg/dL Calcium 9.7 (8.4-10.2) mg/dL Total Bilirubin 2.0 H (0.2-1.3) mg/dL AST 50 (17-59) IU/L ALT 29 (<50) IU/L Alkaline Phosphatase 78 (38-126) U/L Total Creatine Kinase 50 L (55-170) U/L CK-MB (CK-2) TNP CK-MB (CK-2) Rel Index TNP Troponin I 0.015 (0.01-0.034) ng/mL Total Protein 8.0 (6.3-8.2) g/dL Albumin 4.5 (3.5-5.0) g/dL Globulin 3.5 (1.7-4.1) g/dL Albumin/Globulin Ratio 1.3 (1.0-2.8) ECG Data Attestation: I personally reviewed and interpreted this ECG as follows: (See below) Interpretation: Twelve lead EKG performed January 29, 2019 at 10:18 a.m., as follows: Irregular ventricular rhythm with a rate of 148 beats per minute AR intervals and P waves undetectable QRS duration 87 millisecond QTC interval [address] T wave changes Interpretation: Atrial fibrillation with rapid ventricular response; nonspecific ST T wave abnormality with no evidence of acute ischemia abnormal rhythm EKG is interpreted by ED MD. Discharge Plan Departure Patient Disposition: Home Clinical Impression: Atrial fibrillation with rapid ventricular response Discharge Date/Time: 01/29/19 13:15 Instructions: DI for Atrial Fibrillation Activity Restrictions/Additional Instructions: Your labs look good. Your case has been discussed with Dr. Vail of Cardiology, who has made some recommendations. He does not feel that you should be shocked, based on the fact that your atrial fibrillation has likely been going on for more than 48 hours. He has recommended, since you are already on metoprolol, to double the dose of this medication to help with rate control. Additionally, given your age and other factors, he would like you to start Eliquis, a blood thinner. He would also like to have you seen by himself or one of his associates in the clinic. Please start the medications today. If you find that your heart rate has gone up very high again like it was when you came to the emergency department, please return to the emergency department without delay. Your prescriptions have been transmitted electronically to [facility] in [place]. Prescriptions: New metoprolol succinate 50 mg capsule,felix,ER 24hr 50 mg PO BID Qty: 120 RF: 0 Eliquis 5 mg tablet 5 mg PO BID Qty: 60 RF: 0 No Action hydrochlorothiazide 12.5 mg capsule 12.5 mg PO DAILY Qty: 0 RF: 0 potassium chloride 10 MEQ capsule, extended release 10 meq PO DAILY Qty: 0 RF: 0 multivitamin [Multiple Vitamins] 1 EACH tablet 1 tab PO DAILY Qty: 0 RF: 0 felodipine 10 MG tablet extended release 24 hr 10 mg PO DAILY Qty: 0 RF: 0 ascorbic acid (vitamin C) 500 MG tablet 500 mg PO DAILY Qty: 0 RF: 0 vitamin B complex Tablet 1 tab PO DAILY Qty: 0 RF: 0 lutein 1 tab PO DAILY RF: 0 metoprolol succinate [Toprol XL] 50 mg tablet extended release 24 hr 50 mg PO DAILY RF: 0 losartan 100 mg tablet 100 mg PO DAILY RF: 0 tadalafil [Cialis] 20 mg tablet 0 mg PO DIRECTED RF: 0 Referrals: [facility] Cardiology [Provider Group] Kingsley Jorge MD [Primary Care Provider] -
[2019-01-29 11:00] VITALS: BP 117/72; PULSE 66; RESP 14; O2SAT 92
[2019-01-29] MEDS: SODIUM CHLORIDE 0.9% 1,000 ML 1000 ML IV (11:00)
[2019-01-29 11:03] LABS: Add Manual Diff / Slide Review NO; Basophils Absolute Auto 0 /uL (0-100); Basophils Percent Auto 0.4 % (0-2); Eosinophils Absolute Auto 100 /uL (0-450); Eosinophils Percent Auto 0.5 % (2-4); Hematocrit 48.1 % (41-53); Hemoglobin 16.2 g/dL (13.5-17.5); Lymphocytes Absolute Auto 2100 /uL (1100-4500); Lymphocytes Percent Auto 20.7 % (25-40); Mean Corpuscular HGB Conc 33.8 % (30-36); Mean Corpuscular Volume 88.8 fL (80-100); Monocytes Absolute Auto 1100 /uL (0-900); Monocytes Percent Auto 10.7 % (3-14); Neutrophils Absolute Auto 7000 /uL (1500-7000); Neutrophils Percent Auto 67.7 % (50-75); Platelet Count 284 X10^3/uL (150-400); Red Blood Cell Count 5.41 X10^6/uL (4.5-5.9); Red Cell Distribution Width 13.4 % (11.6-14.8); White Blood Cell Count 10.4 X10^3/uL (4.5-11.0)
[2019-01-29 11:04] LABS: INR 1.1 (0.9-1.3); Prothrombin Time 12.3 SECONDS (10.1-12.7)
[2019-01-29 11:09] LABS: Alanine Aminotransferase 29 IU/L (<50); Albumin 4.5 g/dL (3.5-5.0); Albumin Globulin Ratio 1.3 (1.0-2.8); Alkaline Phosphatase 78 U/L (38-126); Aspartate Aminotransferase 50 IU/L (17-59); BUN Creatinine Ratio 26.7 (6-22); Blood Urea Nitrogen 24 mg/dL (9-20); Calcium 9.7 mg/dL (8.4-10.2); Carbon Dioxide 24 mmol/L (22-32); Chloride 108 mmol/L (98-107); Creatine Kinase 50 U/L (55-170); Estimated Glomerular Filt Rate > 60.0 mL/min (>60); Globulin 3.5 g/dL (1.7-4.1); Glucose 116 mg/dL (80-110); Potassium 4.6 mmol/L (3.4-5.1); Sodium 139 mmol/L (137-145)
[2019-01-29 11:13] LABS: HEMOLYSIS 112 (0-50)
[2019-01-29 11:20] LABS: Troponin I 0.015 ng/mL (0.01-0.034)
[2019-01-29 11:30] VITALS: BP 105/77; PULSE 86; RESP 10; O2SAT 94
[2019-01-29 12:31] VITALS: BP 112/77; PULSE 113; RESP 18; O2SAT 97
== END 2019-01-29 13:15 | disposition home or self-care (01) ==
PROVIDERS: Emergency Provider Emergency Medicine; Family Provider Family Medicine; PCP Family Medicine
DX: I48.20 Chronic atrial fibrillation, unspecified (principal)
CPT/HCPCS: 36415; 80053; 82550; 84484; 85025; 85610; 93005; 96361; 96374; 99283; 99284

== ENCOUNTER 2019-02-06 15:14 | Inpatient (IN) | payer MEDICARE, OTHER, SELFPAY ==
[2019-02-06] VITALS (12 sets, daily range): BP systolic 105–155; BP diastolic 62–139; PULSE 77–152; RESP 13–20; TEMP 36.6; O2SAT 93–100; BMI 29.2
--- NOTE | 2019-02-06 15:31 | ED_ITS ---
HPI - Arrhythmia/Palpitations General Chief Complaint: Arrhythmia/Palpitations Stated Complaint: states A-Fib with RVR Time Seen by Provider: 02/06/19 15:27 Source: patient, old records reviewed and other (Dr. Abbott) Mode of arrival: Ambulatory Limitations: no limitations History of Present Illness HPI narrative: This is a 73-year-old male comes to the emergency department with complaint of elevated heart rate. Patient states he was here not long ago for AFib with RVR. His heart rate improved he was started on Eliquis and Um metoprolol. Patient states he went for a follow-up with Dr. Bear and was noted to have a heart rate in the 150s. Patient states he cannot feel when his heart rate is fast. He states that he has noticed irregularity but he can't discern the speed. He states that he has had no shortness of breath, no chest pain or pressure. No nausea or vomiting. States he seems to get a little bit more sweaty with activity than he would expect but states that's been going on for a while. He denies any nausea, no vomiting no issues with syncope or swelling. He states since he started the beta-meena he does feel little bit lightheaded when he stands up quickly but has not had any presyncope or felt like he is going to pass out. The history of hypertension, his new history of a trial fibrillation. He had ureteral stents in 1994 with lithotripsy. No tobacco, states he will often drink a half bottle wine nightly, no illicit. Dr. Jorge is his PCP Related Data Home Medications Medication Instructions Recorded Confirmed hydrochlorothiazide 12.5 mg PO DAILY #0 02/04/17 01/29/19 felodipine 10 mg PO DAILY #0 03/29/17 01/29/19 multivitamin [Multiple Vitamins] 1 tab PO DAILY #0 03/29/17 08/09/18 potassium chloride 10 meq PO DAILY #0 03/29/17 01/29/19 lutein 1 tab PO DAILY 07/27/18 01/29/19 vitamin B complex 1 tab PO DAILY #0 07/27/18 08/09/18 losartan 100 mg PO DAILY 01/29/19 01/29/19 tadalafil [Cialis] 0 mg PO DIRECTED 01/29/19 01/29/19 Previous Rx's Medication Instructions Recorded apixaban [Eliquis] 5 mg PO BID #60 tab 01/29/19 metoprolol succinate 50 mg PO BID #120 each 01/29/19 Allergies Allergy/AdvReac Type Severity Reaction Status Date / Time No Known Drug Allergies Allergy Verified 01/29/19 10:22 Review of Systems Review of Systems ROS Unobtainable: All systems reviewed & are unremarkable except as noted in HPI and below Patient History Medical History BPH (benign prostatic hyperplasia) (Chronic) Hepatitis B (Chronic) Hx of lipoma (Resolved) Hypertension (Acute) Surgical History History of lithotripsy (Resolved) S/P ureteral stent placement (Resolved) Social History household members: spouse Smoking Status: Former smoker alcohol intake: current Smoking Status: Former smoker alcohol intake frequency: 0-2 drinks per day Substance Use Type: does not use Exam Narrative Exam Narrative: GENERAL: Alert and oriented x three, well-nourished, well-appea ring male in mild distress. HEENT: Head normocephalic, atraumatic, EOMI, pupils reactive, face symmetric, moist mucous membranes NECK: Supple, full range of motion CARDIOVASCULAR: Irregularly irregular tachycardic rate and rhythm without murmurs, rubs or gallops. Mild JVD bilaterally. No edema bilaterally. RESPIRATORY: Breath sounds equal bilaterally, no wheezes rales or rhonchi. No tachypnea accessory muscle use. ABDOMEN: Soft, nontender. Normoactive bowel sounds all 4 quadrants. No guard ing or rebound, rigidity, no mass : No CVA tenderness EXTREMITIES: Normal range of motion. Neurovascularly intact NEUROLOGICAL: Cranial nerves II through XII grossly intact. Moving all extremities SKIN: Warm, dry, no petechiae, no rashes or lesions. Initial Vital Signs Initial Vital Signs: Vital Signs Temperature 97.8 F 02/06/19 15:23 Pulse Rate 147 H 02/06/19 15:23 Respiratory Rate 18 02/06/19 15:23 Blood Pressure 155/139 H 02/06/19 15:23 Pulse Oximetry 100 02/06/19 15:23 Course Orders Ordered: ED Orders 02/06/19 15:30 Complete Blood Count AUTO DIFF Stat Comprehensive Metabolic Panel Stat Magnesium Stat Partial Thromboplastin Time Stat Prothrombin Time INR Stat Thyroid Stimulating Hormone Stat Troponin & CK Cardiac Panel Stat 02/06/19 15:43 XR chest 1V Stat DILTIAZEM (Diltiazem 125 Mg/125 Ml-D5w) 125 mg in 125 mls @ 5 mls/hr IV TITRATE BHASKAR; Protocol Last Titration: 02/06/19 17:29 Dose: 3 mg/hr, 3 mls/hr Documented by: Admin: 02/06/19 16:17 Dose: 5 mg/hr, 5 mls/hr Documented by: LANA Discontinued Medications Apixaban (Eliquis) 5 mg PO NOW ONE Stop: 02/06/19 17:19 Last Admin: 02/06/19 17:25 Dose: 5 mg Documented by: LANA Diltiazem HCl (Cardizem) 20 mg IV NOW ONE Stop: 02/06/19 16:14 Last Admin: 02/06/19 16:17 Dose: 20 mg Documented by: LANA Sodium Chloride (Normal Saline 0.9%) 1,000 mls @ 1,000 mls/hr IV BOLUS ONE Stop: 02/06/19 16:42 Last Infusion: 02/06/19 17:22 Dose: 0 mls/hr Documented by: Admin: 02/06/19 15:51 Dose: 1,000 mls/hr Documented by: LANA Metoprolol Tartrate (Lopressor) 5 mg IV NOW ONE Stop: 02/06/19 15:44 Last Admin: 02/06/19 15:50 Dose: 5 mg Documented by: LANA Vital Signs Vital signs: Vital Signs - 8 hr 02/06/19 15:23 02/06/19 16:02 02/06/19 16:17 Temperature 97.8 F Pulse Rate 147 H 139 H 152 H Respiratory Rate 18 17 Blood Pressure 155/139 H 118/85 Blood Pressure [Left Arm] 118/85 Pulse Oximetry 100 98 02/06/19 17:43 Temperature Pulse Rate 77 Respiratory Rate 13 Blood Pressure Blood Pressure [Left Arm] 116/74 Pulse Oximetry 98 MDM - Arrhythmia/Palpitations Lab Data Attestation: I reviewed the patient's lab results. Result diagrams: 02/06/19 15:30 02/06/19 15:30 Labs: Lab Results 02/06/19 02/06/19 02/06/19 Range/Units 15:30 15:30 15:30 WBC 9.7 (4.5-11.0) X10^3/uL RBC 5.00 (4.5-5.9) X10^6/uL Hgb 15.2 (13.5-17.5) g/dL Hct 44.7 (41-53) % MCV 89.3 (80-100) fL MCH 30.5 (26-34) PG MCHC 34.1 (30-36) % RDW 13.2 (11.6-14.8) % Plt Count 265 (150-400) X10^3/uL Neut % (Auto) 66.0 (50-75) % Lymph % (Auto) 23.2 L (25-40) % [place] % (Auto) 9.4 (3-14) % Eos % (Auto) 1.0 L (2-4) % Baso % (Auto) 0.4 (0-2) % Neut # (Auto) 6400 (9796-7882) /uL Lymph # (Auto) 2300 (8899-7240) /uL [place] # (Auto) 900 (0-900) /uL Eos # (Auto) 100 (0-450) /uL Baso # (Auto) 0 (0-100) /uL PT 13.8 H (10.1-12.7) SECONDS INR 1.2 (0.9-1.3) APTT 39 H D (26.4-36.2) SECONDS Sodium 140 (137-145) mmol/L Potassium 3.4 D (3.4-5.1) mmol/L Chloride 105 (98-107) mmol/L Carbon Dioxide 25 (22-32) mmol/L BUN 27 H (9-20) mg/dL Creatinine 1.00 (0.66-1.25) mg/dL Estimated GFR > 60.0 (>60) mL/min BUN/Creatinine Ratio 27.0 H (6-22) Glucose 103 (80-110) mg/dL Calcium 9.7 (8.4-10.2) mg/dL Magnesium (1.6-2.3) mg/dL Total Bilirubin 1.4 H (0.2-1.3) mg/dL AST 37 (17-59) IU/L ALT 50 H (<50) IU/L Alkaline Phosphatase 79 (38-126) U/L Total Creatine Kinase 45 L (55-170) U/L CK-MB (CK-2) TNP CK-MB (CK-2) Rel Index TNP Troponin I < 0.012 (0.01-0.034) ng/mL Total Protein 7.5 (6.3-8.2) g/dL Albumin 4.4 (3.5-5.0) g/dL Globulin 3.1 (1.7-4.1) g/dL Albumin/Globulin Ratio 1.4 (1.0-2.8) TSH (0.47-4.68) uIU/mL 02/06/19 02/06/19 Range/Units 15:30 15:30 WBC (4.5-11.0) X10^3/uL RBC (4.5-5.9) X10^6/uL Hgb (13.5-17.5) g/dL Hct (41-53) % MCV (80-100) fL MCH (26-34) PG MCHC (30-36) % RDW (11.6-14.8) % Plt Count (150-400) X10^3/uL Neut % (Auto) (50-75) % Lymph % (Auto) (25-40) % [place] % (Auto) (3-14) % Eos % (Auto) (2-4) % Baso % (Auto) (0-2) % Neut # (Auto) (2783-6131) /uL Lymph # (Auto) (1364-4663) /uL [place] # (Auto) (0-900) /uL Eos # (Auto) (0-450) /uL Baso # (Auto) (0-100) /uL PT (10.1-12.7) SECONDS INR (0.9-1.3) APTT (26.4-36.2) SECONDS Sodium (137-145) mmol/L Potassium (3.4-5.1) mmol/L Chloride (98-107) mmol/L Carbon Dioxide (22-32) mmol/L BUN (9-20) mg/dL Creatinine (0.66-1.25) mg/dL Estimated GFR (>60) mL/min BUN/Creatinine Ratio (6-22) Glucose (80-110) mg/dL Calcium (8.4-10.2) mg/dL Magnesium 2.0 (1.6-2.3) mg/dL Total Bilirubin (0.2-1.3) mg/dL AST (17-59) IU/L ALT (<50) IU/L Alkaline Phosphatase (38-126) U/L Total Creatine Kinase (55-170) U/L CK-MB (CK-2) CK-MB (CK-2) Rel Index Troponin I (0.01-0.034) ng/mL Total Protein (6.3-8.2) g/dL Albumin (3.5-5.0) g/dL Globulin (1.7-4.1) g/dL Albumin/Globulin Ratio (1.0-2.8) TSH 1.22 (0.47-4.68) uIU/mL Imaging Data Chest x-ray: Radiologist's impression: [place] [address] XRay Report Signed Patient: John Mistry RMR#: [id number] : 7Acct:[id number] Age/Sex: 73 / MDate of Service: 02/06/19 Loc: ED Accession Number: [id number] Procedure: XR chest 1V Ordering Provider: Rosanna Go D.O. PROCEDURE: XR CHEST 1V INDICATIONS: afib with RVR TECHNIQUE: One view of the chest was acquired. COMPARISON: None. FINDINGS: Surgical changes and devices: None. Lungs and pleura: There is focal opacity within the right medial lung apex, which may indicate normal vasculature. Lungs are otherwise clear. No pleural effusions or pneumothorax. Mediastinum: Mediastinal contours appear normal. Heart size is normal. Bones and chest wall: No suspicious bony lesions. Overlying soft tissues appear unremarkable. IMPRESSION: Indeterminate right medial apical density which may represent normal vasculature. Initial further assessment with PA and lateral chest films recommended. Dictated by: Elyssa Alvarado M.D. on 02/06/2019 at 16:06 Approved by: Elyssa Alvarado M.D. on 02/06/2019 at 16:08 ECG Data Attestation: I personally reviewed and interpreted this ECG as follows: Prior ECG tracings: available for review Interpretation: AFib with RVR, rate 146 QRS of 90 and QTC of 370. No ST elevation appreciated. Some depression in lateral leads. MDM Narrative Medical decision making narrative: Patient was sent by Dr Abbott. Patient heart rate improved with Lopressor for a minute or 2 and then elevated almost immediately. Patient was started on Cardizem drip and heart rates been in the 60s to 70s., troponin is TSH is 1.22. Bilirubin slightly elevated 1.4 but appears similar to prior from earlier in January. Patient's BUN is 27 with a GFR greater than 60, electrolytes show potassium of 3.4, hemoglobin normal, normal white count. Chest x-ray shows a focal opacity in the right medial lung apex which could be normal vasculature. Patient heart rate improved on Cardizem with a push and drip and continues to maintain below 100 with occasional 110's. Plan at this time is for ICU admission with diltiazem drip. There was discussion with Dr. Abbott about possible VARSHA in next 24 hours if [facility] had beds but the do not, recontacted Dr. Abbott if patient cardiovert to follow up with Cardiology, if he does not successfully cardiovert or cannot be rate controlled plan for recontact with Cardiology for potential transfer and VARSHA for cardioversion. Discharge Plan Departure Patient Disposition: Admitted as Observation Clinical Impression: Atrial fibrillation with RVR Discharge Date/Time: 02/06/19 18:36 Referrals: Kingsley Jorge MD [Primary Care Provider] - Admit Date/Time: 02/06/19 18:27 Admit Provider: Orlando Johnson
--- NOTE | 2019-02-06 15:43 | DI.RAD.S_ITS ---
PROCEDURE: XR CHEST 1V INDICATIONS: afib with RVR TECHNIQUE: One view of the chest was acquired. COMPARISON: None. FINDINGS: Surgical changes and devices: None. Lungs and pleura: There is focal opacity within the right medial lung apex, which may indicate normal vasculature. Lungs are otherwise clear. No pleural effusions or pneumothorax. Mediastinum: Mediastinal contours appear normal. Heart size is normal. Bones and chest wall: No suspicious bony lesions. Overlying soft tissues appear unremarkable. IMPRESSION: Indeterminate right medial apical density which may represent normal vasculature. Initial further assessment with PA and lateral chest films recommended. Dictated by: Elyssa Alvarado M.D. on 02/06/2019 at 16:06 Approved by: Elyssa Alvarado M.D. on 02/06/2019 at 16:08
--- NOTE | 2019-02-06 15:44 | PC.NURSE ---
pt was at a f/u appt. pt denies symptoms, he was unaware of heart dysrhythmia.
[2019-02-06 15:49] LABS: Add Manual Diff / Slide Review NO; Basophils Absolute Auto 0 /uL (0-100); Basophils Percent Auto 0.4 % (0-2); Eosinophils Absolute Auto 100 /uL (0-450); Hematocrit 44.7 % (41-53); Hemoglobin 15.2 g/dL (13.5-17.5); Lymphocytes Absolute Auto 2300 /uL (1100-4500); Lymphocytes Percent Auto 23.2 % (25-40); Mean Corpuscular HGB Conc 34.1 % (30-36); Mean Corpuscular Hemoglobin 30.5 PG (26-34); Mean Corpuscular Volume 89.3 fL (80-100); Monocytes Absolute Auto 900 /uL (0-900); Monocytes Percent Auto 9.4 % (3-14); Neutrophils Absolute Auto 6400 /uL (1500-7000); Platelet Count 265 X10^3/uL (150-400); Red Cell Distribution Width 13.2 % (11.6-14.8); White Blood Cell Count 9.7 X10^3/uL (4.5-11.0)
[2019-02-06] MEDS: METOPROLOL TARTRATE 5 MG/5 ML INJ IV (15:50)
[2019-02-06] MEDS: SODIUM CHLORIDE 0.9% 1,000 ML 1000 ML IV (15:51)
[2019-02-06 15:57] LABS: INR 1.2 (0.9-1.3); Prothrombin Time 13.8 SECONDS (10.1-12.7)
[2019-02-06 16:00] LABS: PTT Partial Thromboplastin Tim 39 SECONDS (26.4-36.2)
[2019-02-06 16:02] LABS: Alanine Aminotransferase 50 IU/L (<50); Albumin 4.4 g/dL (3.5-5.0); Albumin Globulin Ratio 1.4 (1.0-2.8); Alkaline Phosphatase 79 U/L (38-126); Aspartate Aminotransferase 37 IU/L (17-59); Bilirubin Total 1.4 mg/dL (0.2-1.3); Blood Urea Nitrogen 27 mg/dL (9-20); Calcium 9.7 mg/dL (8.4-10.2); Carbon Dioxide 25 mmol/L (22-32); Chloride 105 mmol/L (98-107); Creatine Kinase 45 U/L (55-170); Estimated Glomerular Filt Rate > 60.0 mL/min (>60); Globulin 3.1 g/dL (1.7-4.1); Glucose 103 mg/dL (80-110); HEMOLYSIS < 15 (0-50); Potassium 3.4 mmol/L (3.4-5.1); Sodium 140 mmol/L (137-145); Total Protein 7.5 g/dL (6.3-8.2)
[2019-02-06 16:12] LABS: Troponin I < 0.012 ng/mL (0.01-0.034)
[2019-02-06] MEDS: dilTIAZem 5 MG/ML SDV 20 MG IV (16:17)
[2019-02-06] MEDS: DILTIAZEM 125 MG/125 ML PIGGYBACK IV (16:17)
[2019-02-06 16:37] LABS: Thyroid Stimulating Hormone 1.22 uIU/mL (0.47-4.68)
[2019-02-06] MEDS: APIXABAN 5 MG TABLET PO (17:25)
--- NOTE | 2019-02-06 19:26 | PC.NURSE ---
Addendum entered by Summer John R.N. 02/06/19 21:33: 2030 - Pt resting in bed. Hospitalist at bedside. IV potassium initiated. HR 100-130's. Metoprolol given as ordered. Cardizem gtt continues at 3mg/hr. Monitor. Original Note: 1845 - Pt to room from ER. Able to stand and independently ambulate around room. Oriented to room and routine. Cardizem gtt at 3mg/hr. color artist shows A-fib CVR. Pt denies chest pain. Reports lightheadedness with rapid change of position only. Educated to safety and call light use. Call light in reach.
--- NOTE | 2019-02-06 19:49 | DI.ECHO.S_ITS ---
[facility]---------+ [facility] +---------+ : : [address] : : : : [id number] : : : : Phone: [phone]+ Echocardiogram Report + + :Name: TIANA MEDINA Study Date: 02/07/2019 Height: 71 in : :[facility] Weight: 210 lb : : Gender: Male BSA: 2.2 m2 : :: 1945 Age: 73 yrs BP: 122/74 mmHg: :Reason For Study: Atrial fibrillation : : Performed By: Liz Nicole : :Referring: FERNANDO CHEW : + + Interpretation Summary The left ventricle is normal in size. Left ventricular ejection fraction is estimated to be 50 +/- 5%. There is no LV thrombus. The right ventricle is grossly normal size. Right ventricular systolic function is at the lower limits of normal. The left atrium is severely dilated. There is moderate mitral regurgitation. There is mild tricuspid regurgitation. The right ventricular systolic pressure is estimated to be at least 37 mmHg based on an estimated right atrial pressure of 8 mm Hg. Procedure: A two-dimensional transthoracic echocardiogram with color flow and Doppler was performed. The study quality was technically adequate. Most of the acoustic windows were suboptimal, but the best imaging was obtained from the subcostal window. The patient was in atrial fibrillation with heart rates between 65-87 bpm during the exam. Left Ventricle: The left ventricle is normal in size. There is normal left ventricular wall thickness. There is no thrombus. Left ventricular ejection fraction is estimated to be 50 +/- 5%. There are no focal wall motion abnormalities. Diastolic function could not be accurately assessed due to atrial fibrillation. Right Ventricle: The right ventricle is grossly normal size. Right ventricular systolic function is at the lower limits of normal. Atria: The left atrium is severely dilated. Right atrial size is normal. The interatrial septum is intact with no evidence for an atrial septal defect. Mitral Valve: The mitral valve leaflets appear mildly thickened, but open well. The mitral valve leaflets are slightly calcified. There is moderate mitral regurgitation. Aortic Valve: The aortic valve is trileaflet. The aortic valve opens well. There is no aortic valve stenosis. There is mild aortic regurgitation. Tricuspid Valve: The tricuspid valve is normal. There is mild tricuspid regurgitation. The right ventricular systolic pressure is estimated to be at least 37 mmHg based on an estimated right atrial pressure of 8 mm Hg. Pulmonic Valve: The pulmonic valve is not well seen, but is grossly normal. There is trace pulmonic regurgitation. Great Vessels: The aortic root is normal size. The dimensions of the ascending aorta are normal. The aortic arch is normal in size. The IVC is dilated (diameter is greater than 2.1 cm) yet it collapses greater than 50% with a sniff. This suggests a right atrial pressure of 8 mm Hg. Pericardium/ Pleura There is no pericardial effusion. There is no pleural effusion. MMode/2D Measurements & Calculations LVIDd: 4.6 cm Ao root diam: 3.6 cm LVIDs: 3.3 cm Aortic Jxn: 2.8 cm FS: 28.8 % asc Aorta Diam: 3.5 cm EPSS: 0.48 cm Ao Arch Diam (Prox Trans): 2.8 cm IVSd: 1.1 cm LVPWd: 0.79 cm LV roche. diameter/BSA (cm/m^2): 2.2 LV sys. diameter/BSA (cm/m^2): 1.5 LA dimension: 5.1 cm RA long axis: 5.4 cm LA A2 area: 32.6 cm2 RA area: 21.7 cm2 LA A4 area: 35.3 cm2 RA vol: 74.5 ml LA length (vol): 6.9 cm RA : 34.6 ml/m2 LA vol: 141.6 ml IVC diam: 2.9 cm LA vol index: 65.7 ml/m2 RVDd major: 7.2 cm RVD1 (basal): 4.0 cm RVD2 (mid): 3.9 cm Doppler Measurements & Calculations Ao V2 max: 139.7 cm/sec MV E max michael: 7.3 cm/sec Ao V2 mean: 91.7 cm/sec Lat Peak E' Michael: 9.1 cm/sec Ao max P.8 mmHg E/E' lat: 0.80 Ao mean P.8 mmHg MV P1/2t: 77.3 msec Ao V2 VTI: 27.5 cm MR ERO: 0.25 cm2 TR max michael: 266.8 cm/sec MV V2 mean: 49.9 cm/sec TR max P.5 mmHg MV mean P.4 mmHg PA V2 max: 76.3 cm/sec MV V2 VTI: 17.7 cm PA V2 mean: 47.7 cm/sec PA mean P.1 mmHg PA Accel Time: 0.12 sec MV P1/2t max michael: 101.7 cm/sec MR flow rate: 111.8 cm3/sec MVA(P1/2t): 2.8 cm2 MR PISA radius: 0.75 cm Reading Physician:01:41 PM
[2019-02-06] MEDS: POTASSIUM CHLORIDE 60 MEQ in SODIUM CHLORIDE 0.9% 500 ML 88.333 ML IV (20:22)
[2019-02-06] MEDS: METOPROLOL ER 50 MG TABLET PO (20:34)
--- NOTE | 2019-02-06 21:22 | P.HP_ITS ---
History of Present Illness History of Present Illness Date Patient Seen: 02/06/19 Time Patient Seen: 20:05 Chief complaint: states A-Fib with RVR Narrative: Mr John Mistry is a 73 year old male who is newly diagnosed with atrial fibrillation, and has a history significant for hypertension, hepatitis- B, BPH, diverticulosis status post admission for perforation without resection and was told he was previously diagnosed with a mitral valve prolapse and intermittent murmur and presented to the ER for evaluation and treatment from his grinder operator automatic's office. The patient was seen at [facility] on 01/29/2019 when he was found to be in atrial fibrillation with RVR. He is adequately treated and discharged home and was started on Eliquis 5 mg twice daily at that time. The patient was following up with Dr. Abbott today at which time he was found to still be in atrial fibrillation with RVR in the 150s. The patient states he does not since he is having tachyarrhythmias and has had what he terms irritable myocardium in the past with PVCs which he does feels palpitations. Reports having no shortness of breath no nausea vomiting no syncope or edema. The patient exercise 3-4 times per week rowing and checks his pulse following workout which he palpates at about 80-90 but noted recently more irregularity. He denies recent illness with no fevers or chills, headaches or dizziness, nasal congestion or sore throat. He denies chest pain or shortness of breath and denies exertional dyspnea. He has no abdominal pain or heartburn. He has diverticulosis but no evidence of bleeding and reports stooling 3 times in the morning daily. He denies urinary symptoms of urgency frequency or hematuria. Upon arrival to the ER the patient is afebrile with temperature 97.8?, tachycardic at 147, hypertensive 155/139, respirations of 18 saturating 100% on room air. An EKG is taking finding atrial fibrillation with ventricular rate of [address] changes with no indication of infarct or injury. A chest x-ray is obtained finding an density in the right medial apex. On laboratory analysis he has a normal white count 9.7, hemoglobin of 15.2, hematocrit of 44.7, platelets of 265. On chemistries he has a sodium of 140, potassium of 3.4, BUN of 27 and creatinine 1.0 with a nonfasting glucose of 103. His magnesium level is 2.0. He has a total bilirubin of 1.4, AST of 37, ALT of 50 and alkaline phosphatase of 79. Total CK is 45 and troponin is negative at less than 0.012. TSH is normal at 1.22. The patient received metoprolol 5 mg IV with brief decrease in rate again returning to RVR, he is started on diltiazem with a bolus and drip will be admitted to the ICU to the Medicine Service for atrial fibrillation with RVR. Patient History Medical History (Updated 02/06/19 @ 21:55 by GARY Suarez) Atrial fibrillation with rapid ventricular response (Inactive) BPH (benign prostatic hyperplasia) (Chronic) Diverticulosis (Acute) Ectopic cardiac beats (Acute) Hepatitis B (Chronic) Hx of lipoma (Resolved) Hypertension (Acute) Surgical History History of lithotripsy (Resolved) S/P ureteral stent placement (Resolved) Family & Social History Family History (Updated 02/06/19 @ 21:58 by GARY Suarez) Mother Hypertension Cancer Diabetes mellitus Grandfather Heart disease Grandmother Stroke Son Cancer Father No problems noted. Social History: household members spouse Prior Living Arrangements House Safety & Behavioral: Feels Safe in Current Yes Environment Been Physically Hurt or No Threatened By a Person Suicidal Ideation Description None Tobacco & Substance use: Smoking Status Former smoker alcohol intake current alcohol intake frequency 0-2 drinks per day Substance Use Type does not use Comment: The patient lives in a single family home with his to whom he has been for 50 years. The patient's father from rapidly progressing neurological disease initially diagnosed does Alzheimer's was as we thought to be Creutzfeldt Guanaco disease but apparently was not confirmed. His mother had a history of hypertension diabetes cancer. Has a son has cancer and a grandfather with coronary artery disease and grandmother with stroke. 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 Smoking: Endorses smoking 1 pack per day and decreasing amounts quitting in 1987. Alcohol: Patient consumes approximately 2 glasses of wine daily. Substance use patient denies recreational pharmaceuticals herbal or cannabis products. Advanced directive: The patient has elected to be FULL CODE. He designates his Veronica to be his surrogate decision maker. Meds Home Medications and Allergies Home Medications Medication Instructions Recorded Confirmed Type hydrochlorothiazide 12.5 mg PO DAILY #0 02/04/17 02/06/19 History felodipine 10 mg PO DAILY #0 03/29/17 02/06/19 History multivitamin [Multiple Vitamins] 1 tab PO DAILY #0 03/29/17 02/06/19 History potassium chloride 10 meq PO DAILY #0 03/29/17 02/06/19 History vitamin B complex 1 tab PO DAILY #0 07/27/18 02/06/19 History apixaban [Eliquis] 5 mg PO BID #60 tab 01/29/19 02/06/19 Rx losartan 100 mg PO DAILY 01/29/19 02/06/19 History metoprolol succinate 50 mg PO BID #120 each 01/29/19 02/06/19 Rx tadalafil [Cialis] 20 mg PO DIRECTED PRN 01/29/19 02/06/19 History lutein-zeaxanthin 1 cap PO DAILY 02/06/19 02/06/19 History Allergies Allergy/AdvReac Type Severity Reaction Status Date / Time No Known Drug Allergies Allergy Verified 01/29/19 10:22 Review of Systems Review of Systems Narrative: All systems are reviewed and unremarkable except as noted in the HPI above. Exam Vital Signs (past 8 hours): - 02/06/19 15:23 02/06/19 16:02 02/06/19 16:17 Temperature 97.8 F Pulse Rate 147 H 139 H 152 H Respiratory Rate 18 17 Blood Pressure 155/139 H 118/85 Blood Pressure [Left Arm] 118/85 Pulse Oximetry 100 98 02/06/19 17:43 02/06/19 18:33 02/06/19 19:06 Temperature 97.9 F Pulse Rate 77 82 88 Respiratory Rate 13 16 20 Blood Pressure 152/62 H Blood Pressure [Left Arm] 116/74 107/75 Pulse Oximetry 98 97 02/06/19 19:16 02/06/19 19:59 02/06/19 20:34 Temperature Pulse Rate 103 H 123 H Respiratory Rate 14 Blood Pressure 122/75 109/71 Blood Pressure [Left Arm] Pulse Oximetry 97 97 02/06/19 21:08 Temperature Pulse Rate 110 H Respiratory Rate 15 Blood Pressure 124/85 Blood Pressure [Left Arm] Pulse Oximetry 95 Oxygen Delivery Method Room Air Narrative Exam Narrative: GENERAL APPEARANCE: well developed, well nourished, in no acute distress. HEENT: Normocephalic, PERRLA, conjunctiva clear, EOMs intact without nystagmus, no sinus tenderness to percussion, no rhinorrhea, mucous membranes are moist and pink without lesions or exudate. NECK/THYROID: neck supple, no JVD, no carotid bruit, no thyromegaly, trachea midline. LYMPH NODES: no cervical or supraclavicular lymphadenopathy. SKIN: [place], warm and dry, no visible lesions, no rashes, ulcerations or petechiae. HEART: Irregularly irregular rhythm, S1-S2, no murmur, no rubs or gallops, br isk capillary refill, no edema LUNGS: clear to auscultation bilaterally, no coarseness crackles or wheezing, no cough present CHEST: Symmetrical movement, no accessory muscle use. ABDOMEN: Soft, round, tympanic to percussion, no abdominal tenderness, no organomegaly, no flank tenderness, active bowel tones. EXTREMITIES: moves all extremities, strength is 5/5 and symmetrical, no deformities or joint effusions. NEUROLOGIC: AAO x4, no focal neurologic deficits, cranial nerves II-XII grossly intact, sensation intact to light touch, hearing grossly normal to speech. PSYCH: Good judgment, good insight, linear thought process, cooperative, appropriate with stable behavior Objective Labs Result Diagrams: 02/06/19 15:30 02/06/19 15:30 Labs: Laboratory Results - last 24 hr 02/06/19 02/06/19 02/06/19 15:30 15:30 15:30 WBC 9.7 RBC 5.00 Hgb 15.2 Hct 44.7 MCV 89.3 MCH 30.5 MCHC 34.1 RDW 13.2 Plt Count 265 Neut % (Auto) 66.0 Lymph % (Auto) 23.2 L [place] % (Auto) 9.4 Eos % (Auto) 1.0 L Baso % (Auto) 0.4 Neut # (Auto) 6400 Lymph # (Auto) 2300 [place] # (Auto) 900 Eos # (Auto) 100 Baso # (Auto) 0 PT 13.8 H INR 1.2 APTT 39 H D Sodium 140 Potassium 3.4 D Chloride 105 Carbon Dioxide 25 BUN 27 H Creatinine 1.00 Estimated GFR > 60.0 BUN/Creatinine Ratio 27.0 H Glucose 103 Calcium 9.7 Magnesium Total Bilirubin 1.4 H AST 37 ALT 50 H Alkaline Phosphatase 79 Total Creatine Kinase 45 L CK-MB (CK-2) TNP CK-MB (CK-2) Rel Index TNP Troponin I < 0.012 Total Protein 7.5 Albumin 4.4 Globulin 3.1 Albumin/Globulin Ratio 1.4 TSH Nasal Screen MRSA (PCR) 02/06/19 02/06/19 02/06/19 15:30 15:30 18:40 WBC RBC Hgb Hct MCV MCH MCHC RDW Plt Count Neut % (Auto) Lymph % (Auto) [place] % (Auto) Eos % (Auto) Baso % (Auto) Neut # (Auto) Lymph # (Auto) [place] # (Auto) Eos # (Auto) Baso # (Auto) PT INR APTT Sodium Potassium Chloride Carbon Dioxide BUN Creatinine Estimated GFR BUN/Creatinine Ratio Glucose Calcium Magnesium 2.0 Total Bilirubin AST ALT Alkaline Phosphatase Total Creatine Kinase CK-MB (CK-2) CK-MB (CK-2) Rel Index Troponin I Total Protein Albumin Globulin Albumin/Globulin Ratio TSH 1.22 Nasal Screen MRSA (PCR) Negative for mrsa Assessment & Plan Assessment & Plan narrative: This is a 73-year-old male patient who was sent to the emergency department by his grinder operator automatic for evaluation treatment of atrial fibrillation with RVR. 1. Persistent atrial fibrillation, acute, present on admission, active. -the patient with new diagnosis of atrial fibrillation made on presentation to the ER with AFib with RVR on 01/29/2019. -the patient was treated in the ER and discharged to follow up with Dr. Abbott which he did so today and found to be continuing RVR and sent to the ER. -12 lead EKG finds atrial fibrillation with RVR at 146 beats per minute without evidence of ischemia or injury. No complaints of chest pain or shortness of breath, cardiac enzymes are negative. Questionable history of mitral valve prolapse with report of intermittent murmur. -patient is given 20 mg of diltiazem IV and started on diltiazem drip in the emergency department. -potassium level is 3.4, ordered 60 mEq of potassium IV, magnesium is 2.0. -patient has been anticoagulated on apixaban 5 mg twice daily since 01/29/19 which is continued with his evening dose of apixaban given in the emergency department. -will continue home regimen of metoprolol succinate 50 mg twice daily and felodipine 10 mg daily. -will obtain echocardiogram in the morning. 2. Essential hypertension, chronic, present on admission, active. -patient with elevated blood pressure on arrival in the emergency department of 155/139, blood pressure in the ICU is 124/85 on diltiazem infusion. -no complaints of chest pain, headache or shortness of breath. -will evaluate morning dose of losartan 100 mg pending blood pressure, cardiac rhythm and metoprolol dosing. 3. Hepatitis-B, chronic, stable. -hepatitis-B contracted while in the , baseline LFTs in July of 2018 are total bili of 0.9, AST of 29, ALT of 25 and alkaline phosphatase 82. -today total bilirubin is 1.4 with AST of 37, ALT of 50 and alkaline phosphatase is 79 which is improved from labs on 01 29 2019 with a total bilirubin of 2.0, AST 50, ALT of 29, alkaline phosphatase is 78. -no complaints of nausea vomiting, no abdominal pain, liver not enlarged on palpation, no jaundice. -this may be associated with altered perfusion in atrial fibrillation with tachycardia. -will obtain lipid panel, as patient is asymptomatic and improving may undergo abdominal ultrasound as an outpatient 4. Benign prostatic hypertrophy, chronic, stable. -patient denies urinary complications or symptoms. He is currently on no medication for BPH. 5. Diverticulosis, chronic, stable -patient with no complaints of abdominal pain, nausea vomiting and no report of rectal bleeding on anticoagulation. VT prophylaxis: Bilateral SCDs, anticoagulated on apixaban Diet: Heart healthy The patient is admitted to the intensive care unit for atrial fibrillation with RVR on a diltiazem drip for close monitoring related to potential complications and risk of adverse events. The patient will be inpatient status. Time Spent With Patient Time with patient: Greater than 35 minutes Scores GCS Lincoln coma scale eye opening: Spontaneous [place] coma scale verbal response: Orientated [place] coma scale motor response: Obey commands [place] coma scale total score: 15 CHADS-VASc Congestive heart failure: no Hypertension: yes Age 75 years or older: no Diabetes mellitus: no Stroke, TIA, or TE: no Vascular disease: no Age 65 to 74 years: yes Sex category (female): Male CHADS-VASc Score: 2 Quality VTE Deep Vein Thrombosis/Pulmonary Embolism Present on Admission: No
[2019-02-07] VITALS (20 sets, daily range): BP systolic 95–132; BP diastolic 3–102; PULSE 60–147; RESP 15–22; TEMP 36.3–36.9; O2SAT 92–97
[2019-02-07 05:28] LABS: Add Manual Diff / Slide Review NO; Basophils Absolute Auto 0 /uL (0-100); Basophils Percent Auto 0.2 % (0-2); Eosinophils Absolute Auto 100 /uL (0-450); Eosinophils Percent Auto 1.4 % (2-4); Hematocrit 39.7 % (41-53); Hemoglobin 13.6 g/dL (13.5-17.5); Lymphocytes Absolute Auto 1800 /uL (1100-4500); Lymphocytes Percent Auto 24.5 % (25-40); Mean Corpuscular HGB Conc 34.2 % (30-36); Mean Corpuscular Hemoglobin 30.4 PG (26-34); Mean Corpuscular Volume 88.9 fL (80-100); Monocytes Absolute Auto 800 /uL (0-900); Neutrophils Absolute Auto 4800 /uL (1500-7000); Neutrophils Percent Auto 63.9 % (50-75); Platelet Count 224 X10^3/uL (150-400); Red Blood Cell Count 4.47 X10^6/uL (4.5-5.9); Red Cell Distribution Width 13.3 % (11.6-14.8); White Blood Cell Count 7.5 X10^3/uL (4.5-11.0)
[2019-02-07 05:29] LABS: Alanine Aminotransferase 42 IU/L (<50); Albumin 3.6 g/dL (3.5-5.0); Albumin Globulin Ratio 1.3 (1.0-2.8); Alkaline Phosphatase 65 U/L (38-126); Aspartate Aminotransferase 30 IU/L (17-59); BUN Creatinine Ratio 23.3 (6-22); Bilirubin Total 1.8 mg/dL (0.2-1.3); Blood Urea Nitrogen 21 mg/dL (9-20); Calcium 8.9 mg/dL (8.4-10.2); Carbon Dioxide 27 mmol/L (22-32); Chloride 110 mmol/L (98-107); Estimated Glomerular Filt Rate > 60.0 mL/min (>60); Globulin 2.8 g/dL (1.7-4.1); Glucose 96 mg/dL (80-110); HEMOLYSIS < 15 (0-50); Sodium 142 mmol/L (137-145); Total Protein 6.4 g/dL (6.3-8.2)
[2019-02-07 05:32] LABS: Cholesterol 154 mg/dL (140-199); HDL Cholesterol 30 mg/dL (40-60); LDL Cholesterol Calculated 100 mg/dL (<100); Magnesium 2.1 mg/dL (1.6-2.3); Triglycerides 118 mg/dL (35-150)
[2019-02-07 05:40] LABS: Troponin I < 0.012 ng/mL (0.01-0.034)
[2019-02-07] MEDS: LOSARTAN 50 MG TABLET 100 MG PO (08:52)
[2019-02-07] MEDS: FELODIPINE ER 5 MG TAB 10 MG PO (08:53)
[2019-02-07] MEDS: APIXABAN 5 MG TABLET PO ×2 (08:53→20:21)
[2019-02-07] MEDS: METOPROLOL ER 50 MG TABLET PO ×2 (08:53→20:21)
[2019-02-07 10:50] LABS: B Type Natriuretic Peptide 117 (<100)
--- NOTE | 2019-02-07 12:11 | CM.DANOTE ---
Discharge Planning/Care Management DCP: assessment: case received and discussed in Team Rounds. EMR reviewed. Pt is a 73 year old male who admitted last evening to care of hospitalist team. Payer: Medicare and [employer]. PCP: listed: Kingsley Jorge Admission status: OBS: confirmed by UR MCKENZIE Vásquez. Dr. Johnson stated this morning that Dr. Rizo, skate shop attendant, was consulting with recommendation fo ECHO and trial from Diltiazem drip to oral medication. Dependent on how all unfolds today he states pt would likely either d/c to home setting and outpt follow up or transfer to a higher level of care hospital. P: will check in later as more is known and follow accordingly or prn assist with d/c issues or options. CM Discharge Assessment Start: 02/07/19 12:10 Freq: Status: Active Protocol: Document 02/07/19 12:11 ITV (Rec: 02/07/19 12:11 ITV [id number]) Discharge Planning Assessment Advance Directives? No Advance Directives on File No History Provided By Medical Record Prior Living Arrangements House Household Members spouse Is patient alert and oriented? Yes Review Status In Process
[2019-02-07] MEDS: dilTIAZem CD 120 MG CAP PO (14:45)
--- NOTE | 2019-02-07 15:14 | PC.NURSE ---
Am note Pt with Dilt gtt running at 3, Pt is indep in room. Denies CP, HR afib with 110-140's. PO Metoprolol and added PO Dilt after echo done per Dr walker @ 1500. Dilt gtt off @ 1445.
--- NOTE | 2019-02-07 17:49 | PC.NURSE ---
Addendum entered by Summer John R.N. 02/07/19 19:27: 1915 - Pt asking about current heart rate. Rate continues 130-150 range. Pt states that he was reluctant to take additional Cardizem as suggested by MD, because of indigestion. Pt reports localized stomach upset for a brief time following last dose of medication. Discussed administration of medications with food/snack in future. Pt also reports increased urination this evening, stating that he has been to the bathroom 5 times since evening meal. Encourage pt to use the urinal for accurate I and O. Pt up the the bathroom and voids 250cc. Continues to deny chest pain. Reinforced safety and call light use. Call light in reach. Original Note: 1744 - Pt was sitting up on the edge of bed eating his meal. Variable hr between 120-150 while eating his meal. Returned to bed and HR remained elevated. Dr. Johnson notified. Pt continues to be asymptomatic r/t heart rate. Denies pain and lightheadedness. VSS. Monitor.
--- NOTE | 2019-02-07 18:41 | PM.PN.1 ---
Subjective Subjective Date Patient Seen: 02/07/19 Time Patient Seen: 18:42 Interval history: Mr John Mistry is a 73 year old male who is newly diagnosed with atrial fibrillation, and has a history significant for hypertension, hepatitis-B, BPH, diverticulosis status post admission for perforation without resection and was told he was previously diagnosed with a mitral valve prolapse and intermittent murmur and presented to the ER for evaluation and treatment from his fundraising specialist's office. He was admitted for asymptomatic AFib with RVR. Patient was evaluated throughout the day today, and had multiple discussions with Cardiology. He had an unremarkable echocardiogram. After his echocardiogram resulted he was transitioned off a diltiazem infusion, and he is now on oral diltiazem and metoprolol as directed by his fundraising specialist, Dr. Abbott. His rate remains uncontrolled, however he was just started on extended release diltiazem this evening. He continues to deny chest pain, shortness of breath, vision changes, headache. He states he still feels well. Exam Vital Signs (past 8 hours): - 02/07/19 11:09 02/07/19 15:43 Temperature 97.5 F L Pulse Rate 94 H 60 Respiratory Rate 18 Blood Pressure 128/68 Pulse Oximetry 96 Oxygen Delivery Method Room Air Narrative Exam Narrative: GENERAL APPEARANCE: Well developed, well nourished, in no acute distress. SKIN: Inspection of the skin reveals no rashes, ulcerations or petechiae. HEENT: The sclerae were anicteric and conjunctivae were pink and moist. Extraocular movements were intact and pupils were equal, round with normal accommodation. External inspection of the ears and nose showed no scars, lesions, or masses. Lips, teeth, and gums showed normal mucosa. The oral mucosa, hard and soft palate, tongue and posterior pharynx were unremarkable. NECK: Supple and symmetric. There was no thyroid enlargement, and no tenderness, or masses were felt. CHEST: Normal AP diameter and normal contour without any kyphoscoliosis. LUNGS: Auscultation of the lungs revealed no wheezes, rhonchi, or rales. CARDIOVASCULAR: Tachycardic, irregularly irregular, without murmurs rubs or gallops. ABDOMEN: Soft and nontender with normal bowel sounds. No ascites was noted. MUSCULOSKELETAL: There was no tenderness or effusions noted. Muscle strength and tone were normal. EXTREMITIES: No cyanosis, clubbing or edema. NEUROLOGIC: Alert and oriented x 3. Normal affect. Gait was normal. Strength is +5/5 in the Upper Extremities and Lower Extremities Bilaterally. Sensation to touch was normal. Objective Labs Result Diagrams: 02/07/19 04:30 02/07/19 04:30 Labs: Laboratory Results - last 24 hr 02/06/19 02/07/19 02/07/19 18:40 04:30 04:30 WBC 7.5 RBC 4.47 L Hgb 13.6 Hct 39.7 L MCV 88.9 MCH 30.4 MCHC 34.2 RDW 13.3 Plt Count 224 Neut % (Auto) 63.9 Lymph % (Auto) 24.5 L [place] % (Auto) 10.0 Eos % (Auto) 1.4 L Baso % (Auto) 0.2 Neut # (Auto) 4800 Lymph # (Auto) 1800 [place] # (Auto) 800 Eos # (Auto) 100 Baso # (Auto) 0 Sodium 142 Potassium 4.0 Chloride 110 H Carbon Dioxide 27 BUN 21 H Creatinine 0.90 Estimated GFR > 60.0 BUN/Creatinine Ratio 23.3 H Glucose 96 Calcium 8.9 Magnesium Total Bilirubin 1.8 H AST 30 ALT 42 Alkaline Phosphatase 65 Troponin I B-Natriuretic Peptide Total Protein 6.4 Albumin 3.6 Globulin 2.8 Albumin/Globulin Ratio 1.3 Triglycerides Cholesterol LDL Cholesterol, Calc HDL Cholesterol Nasal Screen MRSA (PCR) Negative for mrsa 02/07/19 02/07/19 02/07/19 04:30 04:30 04:30 WBC RBC Hgb Hct MCV MCH MCHC RDW Plt Count Neut % (Auto) Lymph % (Auto) [place] % (Auto) Eos % (Auto) Baso % (Auto) Neut # (Auto) Lymph # (Auto) [place] # (Auto) Eos # (Auto) Baso # (Auto) Sodium Potassium Chloride Carbon Dioxide BUN Creatinine Estimated GFR BUN/Creatinine Ratio Glucose Calcium Magnesium 2.1 Total Bilirubin AST ALT Alkaline Phosphatase Troponin I < 0.012 B-Natriuretic Peptide 117 H Total Protein Albumin Globulin Albumin/Globulin Ratio Triglycerides 118 Cholesterol 154 LDL Cholesterol, Calc 100 HDL Cholesterol 30 L Nasal Screen MRSA (PCR) Assessment & Plan Assessment & Plan narrative: This is a 73-year-old male with past medical history of hypertension, hep B, BPH, and diverticulosis patient who was sent to the emergency department by his fundraising specialist for evaluation treatment of atrial fibrillation with RVR. He still remains in AFib with RVR. He had improvement in his diltiazem infusion, we are waiting to see if he can be controlled on oral medications. 1. Persistent atrial fibrillation, acute, present on admission, active. -the patient with new diagnosis of atrial fibrillation made on presentation to the ER with AFib with RVR on 01/29/2019. -the patient was treated in the ER and discharged to follow up with Dr. Abbott which he did so today and found to be continuing RVR and sent to the ER. -12 lead EKG finds atrial fibrillation with RVR at 146 beats per minute without evidence of ischemia or injury. No complaints of chest pain or shortness of breath, cardiac enzymes are negative. Questionable history of mitral valve prolapse with report of intermittent murmur. -patient is given 20 mg of diltiazem IV and started on diltiazem drip in the emergency department. -echocardiogram revealed a normal ejection fraction, dilated L atrium, and no LV thrombus. -potassium level is 3.4, ordered 60 mEq of potassium IV, magnesium is 2.0. -patient has been anticoagulated on apixaban 5 mg twice daily since 01/29/19 which is continued. -will continue home regimen of metoprolol succinate 50 mg twice daily. Hold felodipine now that on cardizem. 2. Essential hypertension, chronic, present on admission, active. -patient with elevated blood pressure on arrival in the emergency department of 155/139, now 120s-140s systolic. -no complaints of chest pain, headache or shortness of breath. -can continue home losartan, held HCTZ. Losartan can be decreased if needed for increased titration of rate control medications. 3. Hepatitis-B, chronic, stable. -hepatitis-B contracted while in the , baseline LFTs in July of 2018 are total bili of 0.9, AST of 29, ALT of 25 and alkaline phosphatase 82. -admission total bilirubin is 1.4 with AST of 37, ALT of 50 and alkaline phosphatase is 79 which is improved from labs on 01 29 2019 with a total bilirubin of 2.0, AST 50, ALT of 29, alkaline phosphatase is 78. -no complaints of nausea vomiting, no abdominal pain, liver not enlarged on palpation, no jaundice. -this may be associated with altered perfusion in atrial fibrillation with tachycardia. -lipid panel LDL 100, HDL 30, and TG 118. 4. Benign prostatic hypertrophy, chronic, stable. -patient denies urinary complications or symptoms. He is currently on no medication for BPH. 5. Diverticulosis, chronic, stable -patient with no complaints of abdominal pain, nausea vomiting and no report of rectal bleeding on anticoagulation. VT prophylaxis: Bilateral SCDs, anticoagulated on apixaban Diet: Heart healthy The patient is in the intensive care unit for atrial fibrillation with RVR on a diltiazem drip for close monitoring related to potential complications and risk of adverse events. The patient will be observation status. Quality VTE Deep Vein Thrombosis/Pulmonary Embolism Present on Admission: No
[2019-02-08] MEDS: dilTIAZem CD 120 MG CAP PO ×2 (00:15→08:20)
[2019-02-08] MEDS: PANTOPRAZOLE 20 MG TABLET PO (00:15)
[2019-02-08 04:25] VITALS: BP 132/70; PULSE 72; RESP 16; TEMP 36.7; O2SAT 93
--- NOTE | 2019-02-08 05:39 | PC.NURSE ---
HR remains variable but more adequately controlled after additional Diltiazem CD dose. HR at rest 70's-115 with increases up to 130's during ambulation. Remains asymptomatic. No acute changes overnight.
[2019-02-08 05:41] LABS: BUN Creatinine Ratio 22.5 (6-22); Blood Urea Nitrogen 18 mg/dL (9-20); Calcium 9.1 mg/dL (8.4-10.2); Carbon Dioxide 24 mmol/L (22-32); Chloride 109 mmol/L (98-107); Estimated Glomerular Filt Rate > 60.0 mL/min (>60); Glucose 101 mg/dL (80-110); HEMOLYSIS < 15 (0-50); Magnesium 2.1 mg/dL (1.6-2.3); Potassium 3.6 mmol/L (3.4-5.1); Sodium 141 mmol/L (137-145)
[2019-02-08] MEDS: POTASSIUM CHLORIDE 20 MEQ TAB 40 MEQ PO (06:21)
[2019-02-08] MEDS: POTASSIUM CHLORIDE 20 MEQ in SODIUM CHLORIDE 0.9% 250 ML 130 ML IV (06:29)
[2019-02-08 07:56] VITALS: BP 125/66; PULSE 69; RESP 16; TEMP 36.6; O2SAT 96
[2019-02-08] MEDS: METOPROLOL ER 50 MG TABLET PO (08:20)
[2019-02-08] MEDS: LOSARTAN 50 MG TABLET 100 MG PO (08:20)
[2019-02-08] MEDS: APIXABAN 5 MG TABLET PO (08:20)
--- NOTE | 2019-02-08 09:03 | P.PN_ITS ---
Subjective Subjective Date Patient Seen: 02/08/19 Interval history: The patient is a 73-year-old male with a history of paroxysmal atrial fibrillation, hypertension, who presented with rapid atrial fibrillation. Patient had an echocardiogram which was essentially unremarkable. He continues to have significant tachycardia. His rate has not been adequately controlled. Plans were underway for him to transfer to [facility] for DC cardioversion. Unfortunately they had no beds and this will be done as an outpatient. The patient's Cardizem has been increased to 120 twice daily. He is also on 50 b.i.d. of metoprolol. He just received this medication 30 minutes ago and is found to have a heart rate of 140. He is asymptomatic. He denies any shortness of breath or chest pain. Exam Vital Signs (past 8 hours): - 02/08/19 04:25 02/08/19 07:56 Temperature 98.1 F 97.9 F Pulse Rate 72 69 Respiratory Rate 16 16 Blood Pressure 132/70 125/66 Pulse Oximetry 93 96 Oxygen Delivery Method Room Air Oxygen Flow Rate 0 Narrative Exam Narrative: Pleasant male resting comfortably in no obvious distress Lungs: Clear to auscultation Cardiac exam: Tachycardic, irregularly irregular, normal S1-S2 Abdomen: Soft nontender nondistended Extremities: No edema Objective Labs Result Diagrams: 02/07/19 04:30 02/08/19 04:50 Labs: Laboratory Results - last 24 hr 02/07/19 02/08/19 04:30 04:50 Sodium 141 Potassium 3.6 Chloride 109 H Carbon Dioxide 24 BUN 18 Creatinine 0.80 Estimated GFR > 60.0 BUN/Creatinine Ratio 22.5 H Glucose 101 Calcium 9.1 Magnesium 2.1 B-Natriuretic Peptide 117 H Assessment & Plan Assessment & Plan narrative: Impression 1. Persistent atrial fibrillation, with a rapid ventricular response rate. Present on admission. Patient will have his metoprolol changed from 50 twice daily, to 50 t.i.d.. His losartan will be held given the increase in the metoprolol. Will discontinue his hydrochlorothiazide. Will continue Cardizem CD at 120 twice daily. Once the patient can maintain a heart rate of 100 on treatment plans will be made for him to be discharged home. He will follow-up as an outpatient with Cardiology for DC cardioversion. 2. Hypertension losartan has been held. Hydrochlorothiazide held. As the patient's metoprolol and Cardizem have been added blood pressure should be improved on these medications. Plan anticipate discharge home later today or tomorrow depending on heart rate. Quality VTE Deep Vein Thrombosis/Pulmonary Embolism Present on Admission: No
[2019-02-08 10:08] VITALS: PULSE 115
--- NOTE | 2019-02-08 12:12 | PC.NURSE ---
Addendum entered by Say Mcghee R.N. 02/08/19 14:32: Spoke with Dr. Pardo at 1350. Reviewed tele strips. Reported current rhythm Afib CVR-RVR 70s-110s (resting) PVCs and increase in number/length of pauses up to 2.2 sec without conversion. Addendum entered by Magnolia Gibson R.N. 02/08/19 13:48: Dr Pardo called and informed of patients HR up into the 140's with ambulation and also having pauses of 1.5-1.8 seconds. Resting HR 80-110. Patient remains in afib. Order to not give additional dose of metoprolol at this time, Dr Pardo was consulting cardiology. Original Note: Patient alert, oriented, denies chest pain and shortness of breath. Up ambulating around nursing station HR 110-140's. Patient denies symptoms with ambulation.
[2019-02-08 13:18] VITALS: BP 105/68; PULSE 92; RESP 18; TEMP 37.2; O2SAT 96
[2019-02-08 15:45] VITALS: BP 129/67; PULSE 77; RESP 20; TEMP 36.3; O2SAT 95
--- NOTE | 2019-02-08 16:56 | PC.NURSE ---
Addendum entered by Summer John R.N. 02/08/19 17:16: 1715 - Report given to Transport. Pt transferred to [facility] with cardiac technologist. Original Note: 1654 - Report called to [place] at [facility]. Transfer pending. Pt aware, denies questions.
--- NOTE | 2019-02-08 17:02 | P.DS_ITS ---
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 The patient was seen at [facility] on 01/29/2019 when he was found to be in atrial fibrillation with RVR. He is adequately treated and discharged home and was started on Eliquis 5 mg twice daily at that time. The patient was following up with Dr. Abbott today at which time he was found to still be in atrial fibrillation with RVR in the 150s. The patient states he does not since he is having tachyarrhythmias and has had what he terms irritable myocardium in the past with PVCs which he does feels palpitations. Reports having no shortness of breath no nausea vomiting no syncope or edema. The patient exercise 3-4 times per week rowing and checks his pulse following workout which he palpates at about 80-90 but noted recently more irregularity. He denies recent illness with no fevers or chills, headaches or dizziness, nasal congestion or sore throat. He denies chest pain or shortness of breath and denies exertional dyspnea. He has no abdominal pain or heartburn. He has diverticulosis but no evidence of bleeding and reports stooling 3 times in the morning daily. He denies urinary symptoms of urgency frequency or hematuria. Upon arrival to the ER the patient is afebrile with temperature 97.8?, tachycardic at 147, hypertensive 155/139, respirations of 18 saturating 100% on room air. An EKG is taking finding atrial fibrillation with ventricular rate of [address] changes with no indication of infarct or injury. A chest x-ray is obtained finding an density in the right medial apex. On laboratory analysis he has a normal white count 9.7, hemoglobin of 15.2, hematocrit of 44.7, platelets of 265. On chemistries he has a sodium of 140, potassium of 3.4, BUN of 27 and creatinine 1.0 with a nonfasting glucose of 103. His magnesium level is 2.0. He has a total bilirubin of 1.4, AST of 37, ALT of 50 and alkaline phosphatase of 79. Total CK is 45 and troponin is negative at less than 0.012. TSH is normal at 1.22. The patient received metoprolol 5 mg IV with brief decrease in rate again returning to RVR, he is started on diltiazem with a bolus and drip will be admitted to the ICU to the Medicine Service for atrial fibrillation with RVR. Discharge Providers Provider Date of admission: 02/06/19 18:27 Discharge Date: 02/08/19 Primary care physician: Kingsley Jorge MD Consults: 02/06/19 19:53 Consult to Discharge Planning Routine Comment: Discharge provider: Sylvia Pardo MD Summary Hospital Course Discharge Diagnosis: 1. Atrial fibrillation with rapid ventricular response rate on Eliquis 2. Hypertension 3. Hepatitis-B 4. BPH 5. Diverticulosis status post of ruptured diverticula that did not require surgical repair Hospital Course: Patient is a 73-year-old male who was admitted to the hospital for atrial fibrillation with rapid ventricular response rate. He was previously on 50 of metoprolol at home. He presented with heart rate of 147. Was placed on a Cardizem drip, his metoprolol was increased to 50 b.i.d.. Despite that the patient continued to have rapid AFib with rates in the 155 range. His metoprolol was increased to 50 t.i.d.. The patient developed 2nd pauses. It became obvious that his rate would not be able to be safely controlled with medications. I discussed the plan of care with , [place] Player with [facility]. She recommended that the patient be transferred to [facility] for definitive electrophysiologic procedure for treatment of his atrial fibrillation. This was explained to the patient. Arrangements were made for transfer. Patient was deemed appropriate for transfer and sent to [facility]. Despite rapid heart rate his blood pressures been controlled. Exam Vital Signs (past 8 hours): - 02/08/19 10:08 02/08/19 13:18 02/08/19 15:45 Temperature 98.9 F 97.4 F L Pulse Rate 115 H 92 H 77 Respiratory Rate 18 20 Blood Pressure 105/68 129/67 Pulse Oximetry 96 95 Oxygen Delivery Method Room Air Oxygen Flow Rate 0 Narrative Exam Narrative: Pleasant male in no obvious distress Lungs: Clear to auscultation Cardiac exam: Tachycardic irregularly irregular normal S1-S2 Abdomen: Soft nontender nondistended Extremities: No edema Objective Labs Result Diagrams: 02/07/19 04:30 02/08/19 04:50 Labs: Laboratory Results - last 24 hr 02/08/19 04:50 Sodium 141 Potassium 3.6 Chloride 109 H Carbon Dioxide 24 BUN 18 Creatinine 0.80 Estimated GFR > 60.0 BUN/Creatinine Ratio 22.5 H Glucose 101 Calcium 9.1 Magnesium 2.1 Discharge Plan Discharge Plan Other facility: [facility] Under care of provider: Dr. Talavera Transportation: Ambulance Discharge comment: Patient will likely need EP procedure for recalcitrant atrial fibrillation I certify the postop hospital intermediate care is medically necessary on a continuing basis for any conditions for which he/ she received care during this hospitalization.: Yes The receiving facility has agreed to accept transfer and provide medical treatment.: Yes Discharge orders & Medications Discharge Orders: Discharge (Order); Ordered 02/08/19 Ordered By: Sylvia Pardo Prescriptions: New diltiazem HCl 120 mg Capsule,Extended Release 24hr 120 mg PO BID Qty: 7 RF: 0 Continued multivitamin [Multiple Vitamins] 1 EACH tablet 1 tab PO DAILY Qty: 0 RF: 0 vitamin B complex Tablet 1 tab PO DAILY Qty: 0 RF: 0 tadalafil [Cialis] 20 mg tablet 20 mg PO DIRECTED PRN (Reason: Erectile Dysfunction) RF: 0 metoprolol succinate 50 mg capsule,sprinkle,ER 24hr 50 mg PO BID Qty: 120 RF: 0 Eliquis 5 mg tablet 5 mg PO BID Qty: 60 RF: 0 lutein-zeaxanthin 20 mg- 1,000 mcg Capsule 1 cap PO DAILY RF: 0 Discontinued hydrochlorothiazide 12.5 mg capsule 12.5 mg PO DAILY Qty: 0 RF: 0 potassium chloride 10 MEQ capsule, extended release 10 meq PO DAILY Qty: 0 RF: 0 felodipine 10 MG tablet extended release 24 hr 10 mg PO DAILY Qty: 0 RF: 0 losartan 100 mg tablet 100 mg PO DAILY RF: 0 Follow up/Referrals: Kingsley Jorge MD [Primary Care Provider] - Diet/Activity/Treatments Diet: Low-sodium and Low-cholesterol Liquid consistency: Normal/Thin Food texture: Regular Activity: bedrest Oxygen: none Visit Report/Discharge Packet Instructions: Diltiazem (By mouth) Visit Report Forms: Patient Portal/API, Stroke Signs & Symptoms Discharge Data Primary Care Provider: Kingsley Jorge Attending Provider: Orlnado Johnson Admzackary Date/Time: 02/06/19 18:27 Quality VTE Deep Vein Thrombosis/Pulmonary Embolism Present on Admission: No
--- NOTE | 2019-02-09 08:12 | CM.DPC ---
DCP: continued: a check in of case shows that pt did transfer yesterday to [facility] as per Dr. Pardo's anticipated plan in morning Rounds.
== END 2019-02-08 17:15 | disposition short-term general hospital (02) | DRG 309 ==
LOC: ED 17:44 → ICU 02-07 07:46
PROVIDERS: Nurse Practitioner Adult Health; Admitting Provider Internal Medicine; Emergency Provider Emergency Medicine; Family Provider Family Medicine; PCP Family Medicine; Visit Provider Internal Medicine
DX: I48.19 Other persistent atrial fibrillation (principal); B18.1 Chronic viral hepatitis B without delta-agent; I10 Essential (primary) hypertension; Z87.891 Personal history of nicotine dependence; Z79.01 Long term (current) use of anticoagulants
CPT/HCPCS: 36415; 71045; 80048; 80053; 80061; 82550; 83735; 83880; 84443; 84484; 85025; 85610; 85730; 87797; 93005; 93010; 93306; 96365; 96376; 99284; 99285; G0378; J3480

== ENCOUNTER → 2019-02-24 07:59 | Outpatient (CLI) | payer MEDICARE, OTHER, SELFPAY ==
[2019-02-06 18:51] VITALS: BMI 29.2
[2019-02-24 10:55] LABS: BUN Creatinine Ratio 22.2 (6-22); Blood Urea Nitrogen 20 mg/dL (9-20); Calcium 9.6 mg/dL (8.4-10.2); Carbon Dioxide 28 mmol/L (22-32); Chloride 105 mmol/L (98-107); Estimated Glomerular Filt Rate > 60.0 mL/min (>60); Glucose 97 mg/dL (80-110); HEMOLYSIS < 15 (0-50); Potassium 3.7 mmol/L (3.4-5.1); Sodium 142 mmol/L (137-145)
== END ==
PROVIDERS: Family Provider Family Medicine; PCP Family Medicine; Visit Provider Internal Medicine Cardiovascular Disease
DX: I10 Essential (primary) hypertension (principal)
CPT/HCPCS: 36415; 80048

== ENCOUNTER → 2019-03-14 07:50 | Outpatient (CLI) | payer MEDICARE, OTHER, SELFPAY ==
[2019-02-06 18:51] VITALS: BMI 29.2
[2019-03-14 08:42] LABS: BUN Creatinine Ratio 23.8 (6-22); Blood Urea Nitrogen 19 mg/dL (9-20); Calcium 9.6 mg/dL (8.4-10.2); Carbon Dioxide 28 mmol/L (22-32); Chloride 106 mmol/L (98-107); Estimated Glomerular Filt Rate > 60.0 mL/min (>60); Glucose 102 mg/dL (80-110); HEMOLYSIS < 15 (0-50); Potassium 4.2 mmol/L (3.4-5.1); Sodium 142 mmol/L (137-145)
== END ==
PROVIDERS: PCP Family Medicine; Visit Provider Nurse Practitioner
DX: I48.19 Other persistent atrial fibrillation (principal); I10 Essential (primary) hypertension
CPT/HCPCS: 36415; 80048

== ENCOUNTER → 2019-04-18 08:16 | Outpatient (CLI) | payer MEDICARE, OTHER, SELFPAY ==
[2019-02-06 18:51] VITALS: BMI 29.2
[2019-04-18 09:55] LABS: BUN Creatinine Ratio 31.4 (6-22); Blood Urea Nitrogen 22 mg/dL (9-20); Calcium 9.8 mg/dL (8.4-10.2); Carbon Dioxide 27 mmol/L (22-32); Chloride 106 mmol/L (98-107); Estimated Glomerular Filt Rate > 60.0 mL/min (>60); Glucose 113 mg/dL (80-110); HEMOLYSIS < 15 (0-50); Potassium 3.5 mmol/L (3.4-5.1); Sodium 142 mmol/L (137-145)
== END ==
PROVIDERS: PCP Family Medicine; Referring Provider Nurse Practitioner; Visit Provider Nurse Practitioner
DX: R00.1 Bradycardia, unspecified (principal); I10 Essential (primary) hypertension
CPT/HCPCS: 36415; 80048

== ENCOUNTER → 2019-05-01 06:07 | Outpatient (CLI) | payer MEDICARE, OTHER, SELFPAY ==
[2019-02-06 18:51] VITALS: BMI 29.2
--- NOTE | 2019-05-01 | DI.MRI.S_ITS ---
PROCEDURE: MR LUMBAR SPINE WO CON INDICATIONS: Radiculopathy, lumbar region TECHNIQUE: Noncontrast sagittal T1 spin echo and T2 fast echo, sagittal STIR, axial T1 and T2 fast spin echo through the lumbar spine. In cases with scoliosis, additional coronal T2 fast spin echo may be performed. COMPARISON: None. FINDINGS: Image quality: Excellent. Alignment and Curvature: There is normal bony alignment. Bone Marrow: Marrow is of normal overall signal. No acute vertebral body compression fractures. Spinal Cord: Conus medullaris terminates at the T12-L1 level. Visualized cord demonstrates normal signal and size. Paraspinous Soft Tissues: No paravertebral masses. Large exophytic T2 hyperintense presumed left renal cyst, technically non-specific. L1-L2: No canal stenosis. Minimal bilateral foraminal narrowing. L2-L3: Posterior annular fissure. Mild central canal narrowing. Partial effacement of both lateral recesses with bilaterally symmetric appearance. Moderate left foraminal stenosis with nerve root compression. Mild to moderate right foraminal narrowing L3-L4: No canal stenosis is identified. Lateral recesses appear patent. Mild right foraminal narrowing although there may be slight nerve root compression on image 6/3. Mild left foraminal stenosis. L4-L5: Mild canal narrowing which is contributed to by facet disease and ligamentum flavum hypertrophy. Partial effacement of both lateral recesses with bilaterally symmetric appearance. No canal stenosis. Mild bilateral foraminal narrowing L5-S1: Severe disc degeneration and height loss. No canal stenosis. Mild right foraminal narrowing. Moderate left foraminal stenosis with slight nerve root compression. IMPRESSION: Multilevel lumbar spondylosis and facet arthropathy. No high-grade canal stenosis. Diffuse bilateral foraminal narrowing as detailed above by spinal level. Dictated by: Say Villatoro M.D. on 05/01/2019 at 11:36 Approved by: Say Villatoro M.D. on 05/01/2019 at 11:44
== END ==
PROVIDERS: PCP Family Medicine; Referring Provider Family Medicine; Visit Provider Family Medicine
DX: M47.26 Other spondylosis with radiculopathy, lumbar region (principal); M48.061 Spinal stenosis, lumbar region without neurogenic claudication; M48.07 Spinal stenosis, lumbosacral region
CPT/HCPCS: 72148

== ENCOUNTER → 2019-05-07 08:07 | Outpatient (CLI) | payer MEDICARE, OTHER, SELFPAY ==
[2019-02-06 18:51] VITALS: BMI 29.2
[2019-05-07 09:07] LABS: BUN Creatinine Ratio 26.7 (6-22); Blood Urea Nitrogen 20 mg/dL (9-20); Calcium 9.6 mg/dL (8.4-10.2); Carbon Dioxide 26 mmol/L (22-32); Chloride 107 mmol/L (98-107); Estimated Glomerular Filt Rate > 60.0 mL/min (>60); Glucose 117 mg/dL (80-110); HEMOLYSIS < 15 (0-50); Potassium 3.6 mmol/L (3.4-5.1); Sodium 141 mmol/L (137-145)
== END ==
PROVIDERS: PCP Family Medicine; Referring Provider Nurse Practitioner; Visit Provider Nurse Practitioner
DX: R00.1 Bradycardia, unspecified (principal); I10 Essential (primary) hypertension
CPT/HCPCS: 36415; 80048

== ENCOUNTER → 2019-10-23 07:44 | Outpatient (CLI) | payer MEDICARE, OTHER, SELFPAY ==
[2019-02-06 18:51] VITALS: BMI 29.2
[2019-10-23 08:42] LABS: Add Manual Diff / Slide Review NO; Basophils Absolute Auto 0 /uL (0-100); Basophils Percent Auto 0.2 % (0-2); Eosinophils Absolute Auto 100 /uL (0-450); Eosinophils Percent Auto 2.1 % (2-4); Hematocrit 45.6 % (41-53); Hemoglobin 15.8 g/dL (13.5-17.5); Lymphocytes Absolute Auto 1900 /uL (1100-4500); Lymphocytes Percent Auto 27.2 % (25-40); Mean Corpuscular HGB Conc 34.6 % (30-36); Mean Corpuscular Hemoglobin 29.9 PG (26-34); Mean Corpuscular Volume 86.4 fL (80-100); Monocytes Absolute Auto 700 /uL (0-900); Monocytes Percent Auto 9.2 % (3-14); Neutrophils Absolute Auto 4400 /uL (1500-7000); Neutrophils Percent Auto 61.3 % (50-75); Platelet Count 231 X10^3/uL (150-400); Red Blood Cell Count 5.27 X10^6/uL (4.5-5.9); White Blood Cell Count 7.1 X10^3/uL (4.5-11.0)
[2019-10-23 09:05] LABS: Alanine Aminotransferase 27 IU/L (<50); Albumin 4.2 g/dL (3.5-5.0); Albumin Globulin Ratio 1.2 (1.0-2.8); Alkaline Phosphatase 85 U/L (38-126); Aspartate Aminotransferase 30 IU/L (17-59); BUN Creatinine Ratio 23.1 (6-22); Bilirubin Total 1.3 mg/dL (0.2-1.3); Blood Urea Nitrogen 21 mg/dL (9-20); Calcium 9.6 mg/dL (8.4-10.2); Carbon Dioxide 28 mmol/L (22-32); Chloride 106 mmol/L (98-107); Cholesterol 212 mg/dL (140-199); Estimated Glomerular Filt Rate > 60.0 mL/min (>60); Globulin 3.4 g/dL (1.7-4.1); Glucose 112 mg/dL (80-110); HDL Cholesterol 50 mg/dL (40-60); HEMOLYSIS < 15 (0-50); LDL Cholesterol Calculated 128 mg/dL (<100); Potassium 3.6 mmol/L (3.4-5.1); Sodium 140 mmol/L (137-145); Total Protein 7.6 g/dL (6.3-8.2); Triglycerides 172 mg/dL (35-150)
[2019-10-23 09:34] LABS: TSH w/ Reflex to FT4 1.13 uIU/mL (0.47-4.68)
[2019-10-23 09:35] LABS: Prostate Specific Antigen 5.82 ng/mL (0.10-4.00)
[2019-10-23 09:35] LABS: Prostate Specific Antigen Scrn 5.89 ng/mL (0.1-4.0)
== END ==
PROVIDERS: PCP Family Medicine; Referring Provider Urology; Visit Provider Urology
DX: R97.20 Elevated prostate specific antigen [PSA] (principal); I10 Essential (primary) hypertension
CPT/HCPCS: 36415; 80053; 80061; 84153; 84443; 85025; G0103

== ENCOUNTER → 2019-12-10 07:49 | Outpatient (CLI) | payer MEDICARE, OTHER, SELFPAY ==
[2019-02-06 18:51] VITALS: BMI 29.2
[2019-12-10 08:45] LABS: Alanine Aminotransferase 31 IU/L (<50); Albumin 4.2 g/dL (3.5-5.0); Albumin Globulin Ratio 1.2 (1.0-2.8); Alkaline Phosphatase 75 U/L (38-126); Aspartate Aminotransferase 33 IU/L (17-59); BUN Creatinine Ratio 29.6 (6-22); Bilirubin Total 1.2 mg/dL (0.2-1.3); Blood Urea Nitrogen 24 mg/dL (9-20); Calcium 9.1 mg/dL (8.4-10.2); Carbon Dioxide 31 mmol/L (22-32); Chloride 106 mmol/L (98-107); Estimated Glomerular Filt Rate > 60.0 mL/min (>60); Globulin 3.6 g/dL (1.7-4.1); Glucose 112 mg/dL (80-110); HEMOLYSIS 17 (0-50); Potassium 3.8 mmol/L (3.4-5.1); Sodium 141 mmol/L (137-145); Total Protein 7.8 g/dL (6.3-8.2)
[2019-12-10 09:21] LABS: Thyroid Stimulating Hormone 1.42 uIU/mL (0.47-4.68)
== END ==
PROVIDERS: PCP Family Medicine; Referring Provider Internal Medicine Cardiovascular Disease; Visit Provider Internal Medicine Cardiovascular Disease
DX: I48.91 Unspecified atrial fibrillation (principal)
CPT/HCPCS: 36415; 80053; 84443

== ENCOUNTER → 2020-02-04 07:26 | Outpatient (CLI) | payer MEDICARE, OTHER, SELFPAY ==
[2019-02-06 18:51] VITALS: BMI 29.2
[2020-02-04 08:30] LABS: Add Manual Diff / Slide Review NO; Basophils Absolute Auto 0 /uL (0-100); Basophils Percent Auto 0.3 % (0-2); Eosinophils Absolute Auto 100 /uL (0-450); Eosinophils Percent Auto 1.7 % (2-4); Hematocrit 44.9 % (41-53); Hemoglobin 15.3 g/dL (13.5-17.5); Lymphocytes Absolute Auto 2000 /uL (1100-4500); Lymphocytes Percent Auto 25.3 % (25-40); Mean Corpuscular Hemoglobin 29.4 PG (26-34); Mean Corpuscular Volume 86.7 fL (80-100); Monocytes Absolute Auto 600 /uL (0-900); Monocytes Percent Auto 7.5 % (3-14); Neutrophils Absolute Auto 5000 /uL (1500-7000); Neutrophils Percent Auto 65.2 % (50-75); Platelet Count 240 X10^3/uL (150-400); Red Blood Cell Count 5.18 X10^6/uL (4.5-5.9); Red Cell Distribution Width 13.1 % (11.6-14.8); White Blood Cell Count 7.7 X10^3/uL (4.5-11.0)
[2020-02-04 08:49] LABS: Alanine Aminotransferase 29 IU/L (<50); Albumin Globulin Ratio 1.3 (1.0-2.8); Alkaline Phosphatase 88 U/L (38-126); Aspartate Aminotransferase 31 IU/L (17-59); BUN Creatinine Ratio 25.6 (6-22); Bilirubin Total 0.8 mg/dL (0.2-1.3); Blood Urea Nitrogen 20 mg/dL (9-20); Calcium 9.1 mg/dL (8.4-10.2); Carbon Dioxide 29 mmol/L (22-32); Chloride 106 mmol/L (98-107); Cholesterol 198 mg/dL (140-199); Estimated Glomerular Filt Rate > 60.0 mL/min (>60); Globulin 3.1 g/dL (1.7-4.1); Glucose 106 mg/dL (80-110); HDL Cholesterol 44 mg/dL (40-60); HEMOLYSIS < 15 (0-50); LDL Cholesterol Calculated 122 mg/dL (<100); Potassium 3.5 mmol/L (3.4-5.1); Sodium 140 mmol/L (137-145); Total Protein 7.1 g/dL (6.3-8.2); Triglycerides 159 mg/dL (35-150)
[2020-02-04 09:23] LABS: TSH w/ Reflex to FT4 1.09 uIU/mL (0.47-4.68)
[2020-02-05 02:41] LABS: Hepatitis B Core Antibody Positive (Negative); Hepatitis B Surf AB Quant <3.1 mIU/mL (Immunity>9.9)
[2020-02-05 16:41] LABS: Hepatitis B Surface Antigen POSITIVE s/c (NEGATIVE)
[2020-02-05 16:58] LABS: Hep C Virus Ab w/Reflex Quant NEGATIVE s/c (NEGATIVE)
[2020-02-06 14:36] LABS: Hepatitis B Virus DNA HBV DNA not detected IU/mL (.)
== END ==
PROVIDERS: PCP Internal Medicine; Referring Provider Internal Medicine; Visit Provider Internal Medicine
DX: I10 Essential (primary) hypertension (principal); Z20.5 Contact with and (suspected) exposure to viral hepatitis
CPT/HCPCS: 36415; 80053; 80061; 84443; 85025; 86704; 86706; 86803; 87340; 87517

== ENCOUNTER → 2020-03-25 10:49 | Outpatient (CLI) | payer MEDICARE, OTHER, SELFPAY ==
[2019-02-06 18:51] VITALS: BMI 29.2
[2020-03-25] MEDS: COVID-19 VACC #1, MRNA(MOD) 100 MCG/0.5 ML VIAL IM (10:54)
== END ==
PROVIDERS: PCP Internal Medicine; Visit Provider Internal Medicine
DX: Z23 Encounter for immunization (principal)
CPT/HCPCS: 0011A; 91301

== ENCOUNTER → 2020-04-22 11:10 | Outpatient (CLI) | payer MEDICARE, OTHER, SELFPAY ==
[2019-02-06 18:51] VITALS: BMI 29.2
[2020-04-22] MEDS: COVID-19 VACC #2, MRNA(MOD) 100 MCG/0.5 ML VIAL IM (11:12)
== END ==
PROVIDERS: PCP Internal Medicine; Visit Provider Internal Medicine
DX: Z23 Encounter for immunization (principal)
CPT/HCPCS: 0012A; 91301

== ENCOUNTER → 2021-01-07 09:17 | Outpatient (CLI) | payer MEDICARE, OTHER, SELFPAY ==
[2019-02-06 18:51] VITALS: BMI 29.2
[2021-01-07] MEDS: COVID-19 VACC #3, MRNA(MOD) 50 MCG/0.25 ML VIAL IM (09:24)
== END ==
PROVIDERS: PCP Internal Medicine; Visit Provider Internal Medicine
DX: Z23 Encounter for immunization (principal)
CPT/HCPCS: 0013A; 91301

== ENCOUNTER → 2021-02-02 07:14 | Outpatient (CLI) | payer MEDICARE, OTHER, SELFPAY ==
[2019-02-06 18:51] VITALS: BMI 29.2
[2021-02-02 08:39] LABS: Add Manual Diff / Slide Review NO; Basophils Absolute Auto 0 /uL (0-100); Basophils Percent Auto 0.3 % (0-2); Eosinophils Absolute Auto 200 /uL (0-450); Eosinophils Percent Auto 2.3 % (2-4); Hematocrit 43.8 % (41-53); Lymphocytes Absolute Auto 1700 /uL (1100-4500); Lymphocytes Percent Auto 24.4 % (25-40); Mean Corpuscular HGB Conc 34.2 % (30-36); Mean Corpuscular Hemoglobin 29.6 PG (26-34); Mean Corpuscular Volume 86.6 fL (80-100); Monocytes Absolute Auto 600 /uL (0-900); Monocytes Percent Auto 9.4 % (3-14); Neutrophils Absolute Auto 4300 /uL (1500-7000); Neutrophils Percent Auto 63.6 % (50-75); Platelet Count 225 X10^3/uL (150-400); Red Blood Cell Count 5.06 X10^6/uL (4.5-5.9); Red Cell Distribution Width 13.2 % (11.6-14.8); White Blood Cell Count 6.8 X10^3/uL (4.5-11.0)
[2021-02-02 08:58] LABS: Alanine Aminotransferase 24 IU/L (<50); Albumin 4.2 g/dL (3.5-5.0); Albumin Globulin Ratio 1.4 (1.0-2.8); Alkaline Phosphatase 70 U/L (38-126); Aspartate Aminotransferase 29 IU/L (17-59); BUN Creatinine Ratio 23.7 (6-22); Bilirubin Total 1.2 mg/dL (0.2-1.3); Blood Urea Nitrogen 18 mg/dL (9-20); Calcium 9.7 mg/dL (8.4-10.2); Carbon Dioxide 29 mmol/L (22-32); Chloride 106 mmol/L (98-107); Estimated Glomerular Filt Rate > 60.0 mL/min (>60); Glucose 110 mg/dL (80-110); HEMOLYSIS < 15 (0-50); Potassium 3.7 mmol/L (3.4-5.1); Sodium 141 mmol/L (137-145); Total Protein 7.2 g/dL (6.3-8.2)
[2021-02-02 09:27] LABS: TSH w/ Reflex to FT4 1.18 uIU/mL (0.47-4.68)
[2021-02-02 14:39] LABS: Cholesterol 203 mg/dL (140-199); HDL Cholesterol 45 mg/dL (40-60); LDL Cholesterol Calculated 133 mg/dL (<100); Triglycerides 123 mg/dL (35-150)
[2021-02-03 01:34] LABS: Hepatitis BE Antigen Negative (Negative)
[2021-02-04 08:42] LABS: Hepatitis Be Antibody Positive (Negative)
[2021-02-05 11:51] LABS: Hepatitis B Virus DNA <10 IU/mL (.)
== END ==
PROVIDERS: PCP Internal Medicine; Referring Provider Internal Medicine; Visit Provider Internal Medicine
DX: I10 Essential (primary) hypertension (principal); B18.9 Chronic viral hepatitis, unspecified; F41.8 Other specified anxiety disorders
CPT/HCPCS: 36415; 80053; 80061; 84443; 85025; 86707; 87350; 87517; 87798

== ENCOUNTER → 2021-02-03 13:47 | Outpatient (CLI) | payer MEDICARE, OTHER, SELFPAY ==
[2019-02-06 18:51] VITALS: BMI 29.2
[2021-02-04 16:52] LABS: PSA Free % 24.6 % (.); PSA, Total 5.7 ng/mL (0.0-4.0)
== END ==
PROVIDERS: PCP Internal Medicine; Referring Provider Urology; Visit Provider Urology
DX: R97.20 Elevated prostate specific antigen [PSA] (principal)
CPT/HCPCS: 36415; 84153; 84154

== ENCOUNTER 2021-02-10 22:47 | Emergency (ER) | payer MEDICARE, OTHER, SELFPAY ==
[2019-02-06 18:51] VITALS: BMI 29.2
--- NOTE | 2021-02-10 22:52 | PC.NURSE ---
Pt reports history of BPH
[2021-02-10 22:55] VITALS: BP 189/99; PULSE 66; RESP 16; TEMP 36.6; O2SAT 96; BMI 29.2
--- NOTE | 2021-02-10 23:12 | ED.MALEGU ---
HPI - Male Genitourinary General Chief complaint: Urogenital-Male Stated complaint: bloody urine Time Seen by Provider: 02/10/21 23:11 Source: patient Mode of arrival: Ambulatory History of Present Illness HPI Narrative: Patient is a 75-year-old male history of atrial fibrillation on Eliquis, BPH presenting with hematuria. He states that he had some light pain urine this morning but it has progressively gotten more bloody throughout the day. He has urinary frequency ear urgency. No flank pain. His recently from cancer, in is currently dealing with a lot of grief as well. Related Data Home Medications Medication Instructions Recorded Confirmed multivitamin (Multiple Vitamins) 1 tab PO DAILY #0 03/29/17 02/06/19 vitamin B complex 1 tab PO DAILY #0 07/27/18 02/06/19 tadalafil 20 mg tablet (Cialis) 20 mg PO DIRECTED PRN 01/29/19 02/06/19 lutein 20 mg-zeaxanthin 1,000 mcg 1 cap PO DAILY 02/06/19 02/06/19 capsule Previous Rx's Medication Instructions Recorded apixaban 5 mg tablet (Eliquis) 5 mg PO BID #60 tab 01/29/19 metoprolol succinate 50 mg capsule 50 mg PO BID #120 each 01/29/19 sprinkle, ext. release 24 hr diltiazem HCl 120 mg 120 mg PO BID #7 cap 02/08/19 capsule,extended release 24 hr Allergies Allergy/AdvReac Type Severity Reaction Status Date / Time No Known Drug Allergies Allergy Verified 01/29/19 10:22 Review of Systems Review of Systems Narrative: GENERAL: Denies chills,fever HEENT: Denies throat pain RESPIRATORY: Denies dyspnea, cough, wheezing CARDIOVASCULAR: Denies chest pain, palpitations : See HPI GASTROINTESTINAL: Denies nausea, vomiting MUSCULOSKELETAL: Denies extremity pain, injury SKIN: No rash, no laceration, no pruritus NEUROLOGIC: Denies weakness, dizziness, headache, numbness 8 point review of systems is negative except for those stated above and HPI Patient History Medical History (Updated 02/10/21 @ 23:57 by Lacie Mayberry DO) Atrial fibrillation with rapid ventricular response BPH (benign prostatic hyperplasia) Diverticulosis Ectopic cardiac beats Hepatitis B Hx of lipoma Hypertension Surgical History History of lithotripsy S/P ureteral stent placement Family History (Updated 02/06/19 @ 21:58 by GARY Suarez) Mother Hypertension Cancer Diabetes mellitus Grandfather Heart disease Grandmother Stroke Son Cancer Father No problems noted. Social History household members: spouse Smoking Status: Former smoker alcohol intake: current Smoking Status: Former smoker alcohol intake frequency: 0-2 drinks per day Substance Use Type: does not use Exam Initial Vital Signs Initial Vital Signs: Vital Signs Temperature 98 F 02/10/21 22:55 Pulse Rate 66 02/10/21 22:55 Respiratory Rate 16 02/10/21 22:55 Blood Pressure 189/99 H 02/10/21 22:55 Pulse Oximetry 96 02/10/21 22:55 GENERAL: Alert 75-year-old male CARDIOVASCULAR: peripheral pulses in tact, cap refill <2 sec RESPIRATORY: No respiratory distress, speaks in full sentences without difficulty ABDOMEN: Soft, nontender, no guarding or rebound EXTREMITIES: Normal range of motion, no clubbing or edema. Neurovascularly intact NEUROLOGICAL: Cranial nerves II through XII grossly intact. Normal gait and speech. SKIN: Warm, dry, no petechiae, no rashes or lesions. Course Orders Ordered: ED Orders 02/10/21 22:50 UA Complete [Urinalysis and Microscopic] Stat Vital Signs Vital signs: Vital Signs - 8 hr 02/10/21 22:55 Temperature 98 F Pulse Rate 66 Respiratory Rate 16 Blood Pressure 189/99 H Pulse Oximetry 96 MDM - Male Genitourinary Lab Data Labs: Lab Results 02/10/21 Range/Units 22:50 Urine Color Red Urine Appearance Cloudy Urine pH 5 (4.5-8.0) Ur Specific [place] >=1.030 H (1.000-1.035) Urine Protein 2+ H (Negative) Urine Glucose (UA) Negative (Negative) g/dL Urine Ketones Trace H (NEGATIVE) Urine Occult Blood 3+ H (Negative) Urine Nitrate Not Reportable Urine Bilirubin Negative (NEGATIVE) Urine Urobilinogen Normal (0.2) E.U./dL Ur Leukocyte Esterase Negative (NEGATIVE) Urine RBC >100/hpf H (0-5/HPF) Urine WBC None seen (0-5/HPF) Calcium Oxalate Crystal Few H Urine Bacteria None seen (None) Ur Culture Indicated? Cult not indicated MDM Narrative Medical decision making narrative: Discussed with patient Leblanc catheter versus waiting at this time he would like to hold off Leblanc catheter. He urinated in the emergency department. We discussed when he needs to return for a Leblanc catheter. At this time we recommend holding his Eliquis tonight and he can restart it tomorrow. He actually was seen by his urologist just 2 days ago for BPH. He says PSAs trending downward. Discharge Plan Departure Patient Disposition: Home Clinical Impression: Hematuria, BPH (benign prostatic hyperplasia) Instructions: DI for Hematuria Activity Restrictions/Additional Instructions: *You have been diagnosed with hematuria *What to do: At this time bleeding is likely due to prostate and Eliquis. May hold Eliquis for tonight but restart tomorrow. Increase fluid intake. He may need Leblanc catheter if bleeding continues. *Continue to take medications as directed *Follow up with your primary care provider in 2-3 days or call [phone] *Return to ER if you should have inability to pee, increased blood, increase abdominal pain or any new, worsening or concerning symptoms Prescriptions: No Action multivitamin [Multiple Vitamins] 1 EACH tablet 1 tab PO DAILY Qty: 0 0RF vitamin B complex Tablet 1 tab PO DAILY Qty: 0 0RF tadalafil [Cialis] 20 mg tablet 20 mg PO DIRECTED PRN (Reason: Erectile Dysfunction) 0RF metoprolol succinate 50 mg capsule,sprinkle,ER 24hr 50 mg PO BID Qty: 120 0RF Eliquis 5 mg tablet 5 mg PO BID Qty: 60 0RF lutein-zeaxanthin 20 mg- 1,000 mcg Capsule 1 cap PO DAILY 0RF diltiazem HCl 120 mg Capsule,Extended Release 24hr 120 mg PO BID Qty: 7 0RF Referrals: Melida Rivera MD [Physician] - Luis Lam MD [Primary Care Provider] - Luis Holt MD [Physician] -
[2021-02-10 23:36] LABS: Appearance Urine UA CLOUDY; Color Urine UA RED; Glucose Urine UA NEGATIVE (Negative); Ketones Urine UA TRACE (NEGATIVE); Protein Urine UA 2+ (Negative); Specific Gravity Urine UA >=1.030 (1.000-1.035); pH Urine UA 5 (4.5-8.0)
[2021-02-10 23:37] LABS: Bilirubin Urine UA Negative (NEGATIVE); Leukocyte Esterase Urine UA NEGATIVE (NEGATIVE); Occult Blood Urine UA 3+ (Negative); Urobilinogen Urine UA Normal E.U./dL (0.2)
[2021-02-10 23:45] LABS: Bacteria Urine None Seen; Calcium Oxalate Crystals Urine Few; Culture Indicated Urine Cult Not Indicated; RBC Urine >100/HPF (0-5/HPF); WBC Urine None Seen (0-5/HPF)
== END 2021-02-11 00:01 | disposition home or self-care (01) ==
PROVIDERS: Emergency Provider Emergency Medicine; PCP Internal Medicine
DX: R31.9 Hematuria, unspecified (principal); N40.0 Benign prostatic hyperplasia without lower urinary tract symptoms; Z79.01 Long term (current) use of anticoagulants; Z87.891 Personal history of nicotine dependence
CPT/HCPCS: 81001; 99281; 99282

== ENCOUNTER → 2021-04-08 14:21 | Outpatient (CLI) | payer MEDICARE, OTHER, SELFPAY ==
[2019-02-06 18:51] VITALS: BMI 29.2
--- NOTE | 2021-04-08 | DI.ECHO.S_ITS ---
[place] [facility]---------+ [facility] +---------+ : : [address] : : : : [id number] : : : : Phone: [phone] Echocardiogram Report + + :Name: TIANA MEDINA Study Date: 04/08/2021 Height: 71 in : :[facility] : Weight: 220 lb : : Gender: Male BSA: 2.2 m2 : :: 1945 Age: 75 yrs BP: 178/102 mmHg: :Reason For Study: Nonrheumatic mitral valve insufficiency : :Ordering Physician: Tian : :Jaziel Olmstead Performed By: Ridge Soria : :Referring: TIAN OMLSTEAD : + + Interpretation Summary The left ventricle is normal in size. The ejection fraction is estimated to be 55-60%. Left ventricular systolic function has mildly improved compared to the previous exam. There is a significant dyssynchronous contraction pattern, consistent with a conduction abnormality. The right ventricle is mildly dilated. The right ventricular systolic function is normal. There is mild to moderate mitral regurgitation. Compared to the prior echo study, there has been no change in the severity of mitral regurgitation. There is mild tricuspid regurgitation. Compared to the prior echo exam, there has been no change in TR severity. The right ventricular systolic pressure is estimated to be at least 29 mmHg based on an estimated right atrial pressure of 3 mm Hg. Compared to the prior echo exam, there has been a decrease in the severity of pulmonary hypertension. Procedure: A two-dimensional transthoracic echocardiogram with color flow and Doppler was performed. The study quality was technically adequate. Comparison is made with the echocardiogram of 02/07/2019. The subcostal views were difficult to obtain and are suboptimal in quality. The heart rate ranged between 59 - 98 bpm during the study. The patient was in normal sinus rhythm during the exam. The patient had frequent PVCs during the exam. The patient had occasional PACs during the exam. Left Ventricle: The left ventricle is normal in size. There is normal left ventricular wall thickness. There is no thrombus. The ejection fraction is estimated to be 55-60%. Left ventricular systolic function has mildly improved compared to the previous exam. There is a significant dyssynchronous contraction pattern, consistent with a conduction abnormality. Diastolic function could not be accurately assessed due to unobtainable data. Right Ventricle: The right ventricle is mildly dilated. The right ventricular systolic function is normal. Atria: The left atrium is moderately dilated. The left atrium has mildly decreased in size since the prior echo exam. The right atrium is mildly dilated. There is no Doppler evidence for an interatrial shunt. Mitral Valve: The mitral valve leaflets appear mildly thickened, but open well. There is mild to moderate mitral regurgitation. Compared to the prior echo study, there has been no change in the severity of mitral regurgitation. Aortic Valve: The aortic valve is trileaflet. The aortic valve opens well. There is trace aortic regurgitation. Tricuspid Valve: The tricuspid valve is normal. There is mild tricuspid regurgitation. The right ventricular systolic pressure is estimated to be at least 29 mmHg based on an estimated right atrial pressure of 3 mm Hg. Compared to the prior echo exam, there has been no change in TR severity. Compared to the prior echo exam, there has been a decrease in the severity of pulmonary hypertension. Pulmonic Valve: The pulmonic valve leaflets are thin and pliable; valve motion is normal. There is mild pulmonic regurgitation. Great Vessels: The aortic root is normal size. The ascending aorta is at the upper limits of normal in size. The aortic arch is at the upper limits of normal in size. The IVC is of normal diameter and collapses greater than 50% with a sniff. This suggests a low right atrial pressure of 3 mm Hg. Pericardium/ Pleura There is no pericardial effusion. There is an anterior echo-free space consistent with a fat pad. There is no pleural effusion. MMode/2D Measurements & Calculations LVIDd: 5.3 cm LVOT diam: 2.0 cm LVIDs: 4.1 cm Ao root diam: 3.3 cm FS: 23.5 % asc Aorta Diam: 3.7 cm IVSd: 0.96 cm Ao Arch Diam (Prox Trans): 3.3 cm LVPWd: 0.86 cm LV roche. diameter/BSA (cm/m^2): 2.4 LV sys. diameter/BSA (cm/m^2): 1.9 LA A2 area: 27.2 cm2 RA long axis: 5.9 cm LA A4 area: 26.1 cm2 RA area: 22.6 cm2 LA length (vol): 6.5 cm RA vol: 73.4 ml LA vol: 92.7 ml RA : 33.4 ml/m2 LA vol index: 42.2 ml/m2 TAPSE: 2.9 cm Doppler Measurements & Calculations Ao V2 max: 146.0 cm/sec LVOT Max Michael: 147.1 cm/sec Ao V2 mean: 98.6 cm/sec LV V1 max P.7 mmHg Ao max P.5 mmHg LV V1 VTI: 29.5 cm Ao mean P.3 mmHg JACKLYN(I,D): 3.1 cm2 Ao V2 VTI: 29.0 cm JACKLYN(V,D): 3.0 cm2 sev ratio: 1.0 JACKLYN indexed to BSA (cm^2/m^2): 1.4 Med Peak E' Michael: 6.7 cm/sec TR max michael: 255.2 cm/sec Lat Peak E' Michael: 9.0 cm/sec TR max P.0 mmHg SV(LVOT): 89.1 ml Reading Physician:10:35 AM
== END ==
PROVIDERS: PCP Internal Medicine; Referring Provider Internal Medicine Cardiovascular Disease; Visit Provider Internal Medicine Cardiovascular Disease
DX: I08.1 Rheumatic disorders of both mitral and tricuspid valves (principal)
CPT/HCPCS: 93306

== ENCOUNTER → 2021-04-25 07:06 | Outpatient (CLI) | payer MEDICARE, OTHER, SELFPAY ==
[2019-02-06 18:51] VITALS: BMI 29.2
[2021-04-25 08:40] LABS: Add Manual Diff / Slide Review NO; Basophils Absolute Auto 0 /uL (0-100); Basophils Percent Auto 0.2 % (0-2); Eosinophils Absolute Auto 200 /uL (0-450); Eosinophils Percent Auto 2.2 % (2-4); Hemoglobin 14.8 g/dL (13.5-17.5); Lymphocytes Absolute Auto 1600 /uL (1100-4500); Lymphocytes Percent Auto 21.1 % (25-40); Mean Corpuscular HGB Conc 33.6 % (30-36); Mean Corpuscular Hemoglobin 29.3 PG (26-34); Mean Corpuscular Volume 87.2 fL (80-100); Monocytes Absolute Auto 700 /uL (0-900); Monocytes Percent Auto 8.8 % (3-14); Neutrophils Absolute Auto 5200 /uL (1500-7000); Neutrophils Percent Auto 67.7 % (50-75); Platelet Count 251 X10^3/uL (150-400); Red Blood Cell Count 5.05 X10^6/uL (4.5-5.9); White Blood Cell Count 7.7 X10^3/uL (4.5-11.0)
[2021-04-25 09:04] LABS: Alanine Aminotransferase 25 IU/L (<50); Albumin Globulin Ratio 1.3 (1.0-2.8); Alkaline Phosphatase 67 U/L (38-126); Amylase 72 U/L (30-110); Aspartate Aminotransferase 31 IU/L (17-59); BUN Creatinine Ratio 19.2 (6-22); Bilirubin Total 0.8 mg/dL (0.2-1.3); Blood Urea Nitrogen 15 mg/dL (9-20); Calcium 9.4 mg/dL (8.4-10.2); Carbon Dioxide 33 mmol/L (22-32); Chloride 105 mmol/L (98-107); Cholesterol 196 mg/dL (140-199); Estimated Glomerular Filt Rate > 60.0 mL/min (>60); Globulin 3.1 g/dL (1.7-4.1); Glucose 107 mg/dL (80-110); HDL Cholesterol 46 mg/dL (40-60); HEMOLYSIS < 15 (0-50); LDL Cholesterol Calculated 132 mg/dL (<100); Lipase 159 U/L (23-300); Sodium 139 mmol/L (137-145); Total Protein 7.1 g/dL (6.3-8.2); Triglycerides 91 mg/dL (35-150)
[2021-04-25 09:17] LABS: Appearance Urine UA CLOUDY; Bilirubin Urine UA NEGATIVE (NEGATIVE); Color Urine UA RED; Glucose Urine UA NEGATIVE (Negative); Ketones Urine UA NEGATIVE (NEGATIVE); Leukocyte Esterase Urine UA NEGATIVE (NEGATIVE); Nitrite Urine UA NEGATIVE (Negative); Occult Blood Urine UA 3+ (Negative); Protein Urine UA 3+ (Negative); Urobilinogen Urine UA 0.2 E.U./dL (0.2); pH Urine UA 6.5 (4.5-8.0)
[2021-04-25 09:30] LABS: RBC Urine >100/HPF (0-5/HPF); WBC Urine 0-1/HPF (0-5/HPF)
[2021-04-25 09:31] LABS: Bacteria Urine Many (>30); Culture Indicated Urine Cult Not Indicated
[2021-04-26 01:07] LABS: Hepatitis B Core Antibody Positive (Negative); Hepatitis BE Antigen Negative (Negative)
== END ==
PROVIDERS: PCP Internal Medicine; Referring Provider Internal Medicine; Visit Provider Internal Medicine
DX: B18.9 Chronic viral hepatitis, unspecified (principal); I10 Essential (primary) hypertension; R10.9 Unspecified abdominal pain; I48.91 Unspecified atrial fibrillation
CPT/HCPCS: 36415; 80053; 80061; 81001; 82150; 83690; 84443; 85025; 86692; 86704; 87350

== ENCOUNTER → 2021-05-03 15:19 | Outpatient (CLI) | payer MEDICARE, OTHER, SELFPAY ==
[2019-02-06 18:51] VITALS: BMI 29.2
--- NOTE | 2021-05-03 15:21 | DI.CT.S_ITS ---
PROCEDURE: CT ABDOMEN PELVIS WO/W CON INDICATIONS: Gross hematuria TECHNIQUE: Optional 5 mm thick noncontrast images acquired from the diaphragm to the symphysis pubis. After the administration of intravenous contrast, 5 mm thick images acquired from the diaphragm to the symphysis pubis after a 10-minute delay. 2 mm thick coronal and sagittal reformats were then performed of the kidneys and ureters. For radiation dose reduction, the following was used: automated exposure control, adjustment of mA and/or kV according to patient size. COMPARISON: CT, CT ABDOMEN PELVIS W CON, 07/27/2018, 17:24. FINDINGS: Image quality: Excellent. Lung bases: Lung bases are clear. Heart size is enlarged. Urinary system: Both kidneys are atrophic in size, without hydronephrosis or nephrolithiasis on pre-contrast images. Simple left renal cyst is present measuring 5.2 cm. Similar smaller focus measuring approximately 6 mm is noted the inferior left renal pole. 4 mm similar focus is noted in the right inferior pole. No perinephric fat stranding. There is normal bilateral renal enhancement. Renal calyces appear normal in morphology when filled with contrast. Opacified portions of both ureters demonstrate normal caliber. Bladder wall thickness is normal. There is soft tissue density within the posterior inferior bladder which is contiguous with a markedly enlarged prostate gland. Punctate calcification is noted within the mid right lateral bladder. Other solid organs: Liver is demonstrates multiple low-attenuation foci the largest measuring 3.7 cm, Hounsfield units 5. Gallbladder demonstrates dependent stones without wall thickening . Biliary system is non dilated. Pancreas enhances normally. Spleen is normal in size and enhancement. No adrenal nodules. Peritoneum and bowel: Bowel loops demonstrate normal wall thickness and caliber. No free fluid or air. Colonic diverticula are present to a moderate degree with out inflammatory change. Nodes and vessels: No retroperitoneal or mesenteric adenopathy by size criteria. Aorta and inferior vena cava are normal in size. Abdominal wall: Fat containing ventral hernia is present. Pelvis: No pathologic free pelvic fluid. Bilateral fat containing inguinal hernias are present. Prostate gland is markedly enlarged. Bones: No suspicious bony lesions. No vertebral body compression fractures. IMPRESSION: Soft tissue mass within the posterior inferior bladder becoming contiguous with a markedly enlarged prostate gland. While this is suspected to represent hypertrophy prostate tissue, recommend clinical correlation and biopsy if indicated. No focal solid renal or ureteral masses. No renal or ureteral calculi. Hepatic cysts. Diverticulosis. Dictated by: Marina Jefferson M.D. on 05/03/2021 at 20:58 Approved by: Marina Jefferson M.D. on 05/03/2021 at 21:04
== END ==
PROVIDERS: PCP Internal Medicine; Referring Provider Internal Medicine; Visit Provider Internal Medicine
DX: R31.0 Gross hematuria (principal); N32.9 Bladder disorder, unspecified; N40.0 Benign prostatic hyperplasia without lower urinary tract symptoms; K76.89 Other specified diseases of liver; K57.90 Diverticulosis of intestine, part unspecified, without perforation or abscess without bleeding; K43.9 Ventral hernia without obstruction or gangrene; K40.20 Bilateral inguinal hernia, without obstruction or gangrene, not specified as recurrent
CPT/HCPCS: 74178

== ENCOUNTER 2021-12-30 08:21 | Emergency (ER) | payer MEDICARE, OTHER, SELFPAY ==
[2019-02-06 18:51] VITALS: BMI 29.2
[2021-12-30] VITALS (36 sets, daily range): BP systolic 118–168; BP diastolic 60–125; PULSE 57–172; RESP 8–38; TEMP 36.4; O2SAT 93–98; BMI 29.9
--- NOTE | 2021-12-30 08:34 | ED.CHESTPAIN ---
HPI - Chest Pain General Chief Complaint: Arrhythmia/Palpitations Stated Complaint: recurrence of AFIB Time Seen by Provider: 12/30/21 08:25 History of Present Illness HPI narrative: Patient is a 76-year-old male history of atrial fibrillation on Eliquis and metoprolol and diltiazem presenting today with AFib. He thinks he went into it this morning. He has very minimal symptoms. He denies any chest pain or shortness of breath. Some minor palpitations. This has happened to him before, he was admitted in 2019 for the same. Patient states it is coming up on the 1 year anniversary of his 's . He is wondering maybe that is playing a role in his current heart rate. Related Data Home Medications Medication Instructions Recorded Confirmed multivitamin (Multiple Vitamins 1 tab PO DAILY ##0 03/29/17 02/06/19 tablet) vitamin B complex 1 tab PO DAILY ##0 07/27/18 02/06/19 tadalafil 20 mg tablet (Cialis) 20 mg PO DIRECTED PRN Erectile 01/29/19 02/06/19 Dysfunction lutein 20 mg-zeaxanthin 1,000 mcg 1 cap PO DAILY 02/06/19 02/06/19 capsule Previous Rx's Medication Instructions Recorded apixaban 5 mg tablet (Eliquis) 5 mg PO BID #60 tabs 01/29/19 metoprolol succinate 50 mg capsule 50 mg PO BID #120 ea 01/29/19 sprinkle, ext. release 24 hr diltiazem HCl 120 mg 120 mg PO BID #7 caps 02/08/19 capsule,extended release 24 hr Allergies Allergy/AdvReac Type Severity Reaction Status Date / Time No Known Drug Allergies Allergy Verified 12/30/21 08:46 Review of Systems Review of Systems Narrative: GENERAL: Denies chills, fatigue, malaise, fever, sweats, travel HEENT: Denies sinus pain, ear pain, sore throat, difficulty swallowing, neck pain RESPIRATORY: Denies dyspnea, cough, wheezing, hemoptysis, sputum. CARDIOVASCULAR: See HPI GASTROINTESTINAL: Denies nausea, vomiting, abdominal pain, diarrhea, constipation, melena. : Denies dysuria, frequency, incontinence, hematuria, urinary retention, flank pain. MUSCULOSKELETAL: Denies weakness, joint pain, or bony pain SKIN: No rash, no erythema, no pruritus NEUROLOGIC: Denies weakness, dizziness, headache, numbness, change in speech, confusion PSYCHIATRIC: No concerning psychosocial issues. 12 point review of systems is negative except for those stated above and HPI Patient History Medical History Atrial fibrillation with rapid ventricular response BPH (benign prostatic hyperplasia) Diverticulosis Ectopic cardiac beats Hepatitis B Hx of lipoma Hypertension Surgical History History of lithotripsy S/P ureteral stent placement Family History Mother Hypertension Cancer Diabetes mellitus Grandfather Heart disease Grandmother Stroke Son Cancer Father No problems noted. Social History household members: spouse Smoking Status: Former smoker alcohol intake: current Smoking Status: Former smoker alcohol intake frequency: 0-2 drinks per day Substance Use Type: does not use Exam Initial Vital Signs Initial Vital Signs: Vital Signs Pulse Rate 119 H 12/30/21 08:27 Blood Pressure 161/101 H 12/30/21 08:27 Pulse Oximetry 96 12/30/21 08:27 GENERAL alert pleasant 76-year-old male HEENT: Head atraumatic,EOMI, pupils reactive, face symmetric, [moist] mucous membranes CARDIOVASCULAR: Tachycardic irregular RESPIRATORY: Breath sounds equal bilaterally, no wheezes rales or rhonchi. ABDOMEN: Soft, nontender. Normoactive bowel sounds all 4 quadrants. No guarding or rebound. EXTREMITIES: Normal range of motion, no clubbing or edema. Neurovascularly intact NEUROLOGICAL: Alert and oriented x4. SKIN: Warm, dry, no laceration, no petechiae, no rashes or lesions. Procedures Cardioversion Indication: AFib with RVR Stability: Stable Number of attempts (shocks): 1 Joules used: 120 Cardiac rhythm post-cardioversion: NSR Procedural Sedation Indication: cardioversion Mallampati Airway Classification: Class I IV Propofol dose (mg): 100 Intraservice time/total sedation time (min): 15 ED Sedation Level: Moderate (Concious) Patient Tolerated Procedure: Well and No complications Complications: hypoventilation Interventions: Airway repositioned Course Orders Ordered: ED Orders 12/30/21 08:36 XR chest 1V Stat 12/30/21 08:37 EKG-12 Lead Stat 12/30/21 08:38 Complete Blood Count AUTO DIFF Stat Comprehensive Metabolic Panel Stat Lipase Stat Partial Thromboplastin Time Stat Prothrombin Time INR Stat Troponin & CK Cardiac Panel Stat 12/30/21 10:14 EKG-12 Lead Routine Discontinued Medications Diltiazem HCl (Diltiazem 5 Mg/Ml Sdv) 10 mg IV NOW ONE Stop: 12/30/21 08:37 Last Admin: 12/30/21 08:42 Dose: 10 mg Documented By: JEISON Diltiazem HCl (Diltiazem 5 Mg/Ml Sdv) 10 mg IV NOW ONE Stop: 12/30/21 09:19 Last Admin: 12/30/21 09:26 Dose: 10 mg Documented By: SHEELA Sodium Chloride (Normal Saline 0.9%) 1,000 mls @ 150 mls/hr IV CONT BHASKAR Last Infusion: 12/30/21 12:14 Dose: 150 mls/hr Documented By: Admin: 12/30/21 08:41 Dose: 150 mls/hr Documented By: JEISON Propofol (Propofol 200 Mg/20 Ml Vial) 100 mg 1 mg/kg (100 mg) IV NOW ONE Stop: 12/30/21 09:20 Last Admin: 12/30/21 09:57 Dose: 100 mg Documented By: SHEELA Vital Signs Vital signs: Vital Signs - 8 hr 12/30/21 08:37 12/30/21 08:42 12/30/21 08:27 Temperature 97.5 F L Pulse Rate 167 H 172 H Respiratory Rate 20 Blood Pressure 161/101 H 168/107 H 161/101 H Pulse Oximetry 98 Oxygen Delivery Method Room Air Oxygen Flow Rate 12/30/21 08:27 12/30/21 08:30 12/30/21 08:30 Temperature Pulse Rate 119 H 163 H Respiratory Rate 16 Blood Pressure 168/107 H Pulse Oximetry 96 98 Oxygen Delivery Method Oxygen Flow Rate 12/30/21 08:45 12/30/21 08:50 12/30/21 08:50 Temperature Pulse Rate 158 H 140 H Respiratory Rate 17 Blood Pressure 167/125 H Pulse Oximetry 97 97 Oxygen Delivery Method Oxygen Flow Rate 12/30/21 09:00 12/30/21 09:01 12/30/21 09:01 Temperature Pulse Rate 108 H 125 H Respiratory Rate 14 9 L Blood Pressure 128/78 Pulse Oximetry 97 95 Oxygen Delivery Method Oxygen Flow Rate 12/30/21 09:26 12/30/21 09:10 12/30/21 09:10 Temperature Pulse Rate 145 H 104 H Respiratory Rate 15 Blood Pressure 166/105 H 153/85 H Pulse Oximetry 95 Oxygen Delivery Method Oxygen Flow Rate 12/30/21 09:15 12/30/21 09:21 12/30/21 09:21 Temperature Pulse Rate 122 H 140 H Respiratory Rate 11 L 23 Blood Pressure 166/105 H Pulse Oximetry 96 93 Oxygen Delivery Method Oxygen Flow Rate 12/30/21 09:30 12/30/21 09:30 12/30/21 09:40 Temperature Pulse Rate 126 H 114 H Respiratory Rate 26 H 19 Blood Pressure 146/88 H Pulse Oximetry 96 97 Oxygen Delivery Method Oxygen Flow Rate 12/30/21 09:40 12/30/21 09:50 12/30/21 09:50 Temperature Pulse Rate 104 H Respiratory Rate 15 Blood Pressure 132/72 134/81 Pulse Oximetry 97 Oxygen Delivery Method Oxygen Flow Rate 12/30/21 09:55 12/30/21 09:55 12/30/21 10:00 Temperature Pulse Rate 136 H Respiratory Rate 18 Blood Pressure 151/84 H 122/61 Pulse Oximetry 98 Oxygen Delivery Method Nasal Cannula Oxygen Flow Rate 10 12/30/21 10:00 12/30/21 10:05 12/30/21 10:05 Temperature Pulse Rate 65 60 Respiratory Rate 26 H 17 Blood Pressure 118/60 Pulse Oximetry 93 94 Oxygen Delivery Method Oxygen Flow Rate 12/30/21 10:10 12/30/21 10:10 12/30/21 10:15 Temperature Pulse Rate 67 Respiratory Rate 16 Blood Pressure 126/81 132/81 Pulse Oximetry 96 Oxygen Delivery Method Oxygen Flow Rate 12/30/21 10:15 12/30/21 10:20 12/30/21 10:20 Temperature Pulse Rate 64 65 Respiratory Rate 26 H 38 H Blood Pressure 140/74 Pulse Oximetry 94 96 Oxygen Delivery Method Oxygen Flow Rate 12/30/21 10:25 12/30/21 10:26 12/30/21 10:26 Temperature Pulse Rate 65 62 Respiratory Rate 26 H 11 L Blood Pressure 140/93 H Pulse Oximetry 97 97 Oxygen Delivery Method Oxygen Flow Rate 12/30/21 10:30 12/30/21 10:30 12/30/21 10:35 Temperature Pulse Rate 64 Respiratory Rate 24 Blood Pressure 146/76 H 131/77 Pulse Oximetry 98 Oxygen Delivery Method Oxygen Flow Rate 12/30/21 10:35 12/30/21 10:40 12/30/21 10:40 Temperature Pulse Rate 60 62 Respiratory Rate 21 29 H Blood Pressure 127/74 Pulse Oximetry 97 97 Oxygen Delivery Method Oxygen Flow Rate 12/30/21 10:45 12/30/21 10:45 12/30/21 10:50 Temperature Pulse Rate 60 Respiratory Rate 13 Blood Pressure 131/76 139/79 Pulse Oximetry 96 Oxygen Delivery Method Oxygen Flow Rate 12/30/21 10:50 12/30/21 10:55 12/30/21 10:55 Temperature Pulse Rate 63 61 Respiratory Rate 22 29 H Blood Pressure 140/83 Pulse Oximetry 96 97 Oxygen Delivery Method Oxygen Flow Rate 12/30/21 11:00 12/30/21 11:00 12/30/21 11:05 Temperature Pulse Rate 61 58 L Respiratory Rate 12 11 L Blood Pressure 148/88 H Pulse Oximetry 96 96 Oxygen Delivery Method Oxygen Flow Rate 12/30/21 11:10 12/30/21 11:15 12/30/21 11:20 Temperature Pulse Rate 61 61 57 L Respiratory Rate 24 17 15 Blood Pressure Pulse Oximetry 95 97 96 Oxygen Delivery Method Oxygen Flow Rate 12/30/21 11:25 12/30/21 11:30 12/30/21 11:30 Temperature Pulse Rate 58 L 59 L Respiratory Rate 8 L 17 Blood Pressure 143/74 H Pulse Oximetry 97 96 Oxygen Delivery Method Oxygen Flow Rate MDM - Chest Pain Lab Data Result diagrams: 12/30/21 08:38 12/30/21 08:38 Labs: Lab Results 12/30/21 12/30/21 12/30/21 Range/Units 08:38 08:38 08:38 WBC 8.1 (4.5-11.0) X10^3/uL RBC 5.06 (4.5-5.9) X10^6/uL Hgb 14.9 (13.5-17.5) g/dL Hct 43.5 (41-53) % MCV 85.9 (80-100) fL MCH 29.4 (26-34) PG MCHC 34.3 (30-36) % RDW 13.8 (11.6-14.8) % Plt Count 239 (150-400) X10^3/uL Neut % (Auto) 64.1 (50-75) % Lymph % (Auto) 22.2 L (25-40) % [place] % (Auto) 10.8 (3-14) % Eos % (Auto) 2.4 (2-4) % Baso % (Auto) 0.5 (0-2) % Neut # (Auto) 5200 (2133-8000) /uL Lymph # (Auto) 1800 (6671-4831) /uL [place] # (Auto) 900 (0-900) /uL Eos # (Auto) 200 (0-450) /uL Baso # (Auto) 0 (0-100) /uL PT 15.7 H (10.1-12.7) SECONDS INR 1.4 H (0.9-1.3) APTT 37 H (26-36) SECONDS Sodium 141 (137-145) mmol/L Potassium 3.5 (3.4-5.1) mmol/L Chloride 104 (98-107) mmol/L Carbon Dioxide 25 (22-32) mmol/L BUN 16 (9-20) mg/dL Creatinine 0.75 (0.66-1.25) mg/dL Estimated GFR > 60 (>60) mL/min BUN/Creatinine Ratio 21.3 (6-22) Glucose 124 H (80-110) mg/dL Calcium 9.0 (8.4-10.2) mg/dL Total Bilirubin 1.2 (0.2-1.3) mg/dL AST 32 (17-59) IU/L ALT 28 (<50) IU/L Alkaline Phosphatase 76 (38-126) U/L Total Creatine Kinase 48 L (55-170) U/L CK-MB (CK-2) TNP CK-MB (CK-2) Rel Index TNP Troponin I 0.074 H (0.01-0.034) ng/mL Total Protein 7.6 (6.3-8.2) g/dL Albumin 4.1 (3.5-5.0) g/dL Globulin 3.5 (1.7-4.1) g/dL Albumin/Globulin Ratio 1.2 (1.0-2.8) Lipase 121 (23-300) U/L Imaging Data Chest x-ray: Radiologist's Impression: atient: John Mistry MR#: [id number] : 1945 Acct:[id number] Age/Sex: 76 / M Date of Service: 12/30/21 Loc: ED Accession Number: [id number] ?? Procedure: XR chest 1V Ordering Provider: Lacie Mayberry D.O. PROCEDURE:? XR CHEST 1V ? INDICATIONS:? chest pain ? TECHNIQUE:? One view of the chest was acquired.? ? COMPARISON:? [facility], CR, XR CHEST 1V, 02/06/2019, 15:48. ? FINDINGS:? ? Surgical changes and devices:? None.? ? Lungs and pleura:? Lungs are clear.? No pleural effusions or pneumothorax.? ? Mediastinum:? Mediastinal contours appear unchanged.? Heart size is normal.? ? Bones and chest wall:? No suspicious bony lesions.? Overlying soft tissues appear unremarkable.? ? IMPRESSION:? No acute cardiopulmonary abnormality. ? ? ? Dictated by: Niranjan Orozco M.D. on 12/30/2021 at 8:22 ? ? ECG Data Interpretation: EKG 1. Atrial fibrillation rate [address] changes EKG 2. Normal sinus rhythm rate 66 [place] interval 144 QRS [address] changes MDM Narrative Medical decision making narrative: Patient is a history of atrial fibrillation on Eliquis. There is no contraindication for cardioversion. He overall is relatively asymptomatic he thinks maybe his heart rate has been elevated for at least a day but after thinking about it and might have been longer. He has not missed any doses of Eliquis. He has no chest pain or shortness of breath. He was easily cardioverted at 120 joules without any complication. He has absolutely no chest pain and normal EKG post cardioversion. Troponin was noted to be indeterminate at 0.78. It is probably from AFib. He was cardioverted repeating a troponin it would likely be elevated he has no signs or symptoms of coronary artery disease with a normal EKG. I discussed this with him troponin is not repeated. He remains pain-free he has never had pain. Patient's son came to pick him up Discharge Plan Departure Patient Disposition: Home Clinical Impression: Atrial fibrillation Instructions: DI for Atrial Fibrillation Activity Restrictions/Additional Instructions: *You have been diagnosed with atrial fibrillation *What to do: Sorry to see you again but it is always a pleasure. Follow-up with cardiology. *Continue to take medications as directed Please continue all medications including Eliquis *Follow up with your primary care provider in 2-3 days or call [phone] *Return to ER if you should have palpitations chest pain shortness of breath or any new, worsening or concerning symptoms Prescriptions: No Action multivitamin [Multiple Vitamins] 1 EACH tablet 1 tab PO DAILY Qty: 0 vitamin B complex Tablet 1 tab PO DAILY Qty: 0 tadalafil [Cialis] 20 mg tablet 20 mg PO DIRECTED PRN (Reason: Erectile Dysfunction) metoprolol succinate 50 mg capsule,sprinkle,ER 24hr 50 mg PO BID Qty: 120 0RF Eliquis 5 mg tablet 5 mg PO BID Qty: 60 0RF lutein-zeaxanthin 20 mg- 1,000 mcg Capsule 1 cap PO DAILY diltiazem HCl 120 mg Capsule,Extended Release 24hr 120 mg PO BID Qty: 7 0RF Referrals: Luis Lam MD [Primary Care Provider] - Visit Report Forms: Patient Portal/API
--- NOTE | 2021-12-30 08:36 | DI.RAD.S_ITS ---
PROCEDURE: XR CHEST 1V INDICATIONS: chest pain TECHNIQUE: One view of the chest was acquired. COMPARISON: [facility], CR, XR CHEST 1V, 02/06/2019, 15:48. FINDINGS: Surgical changes and devices: None. Lungs and pleura: Lungs are clear. No pleural effusions or pneumothorax. Mediastinum: Mediastinal contours appear unchanged. Heart size is normal. Bones and chest wall: No suspicious bony lesions. Overlying soft tissues appear unremarkable. IMPRESSION: No acute cardiopulmonary abnormality. Dictated by: Niranjan Orozco M.D. on 12/30/2021 at 8:22 Approved by: Niranjan Orozco M.D. on 12/30/2021 at 8:22
[2021-12-30] MEDS: SODIUM CHLORIDE 0.9% 1,000 ML 150 ML IV (08:41)
[2021-12-30] MEDS: dilTIAZem 5 MG/ML SDV 10 MG IV ×2 (08:42→09:26)
[2021-12-30 08:47] LABS: Add Manual Diff / Slide Review NO; Basophils Absolute Auto 0 /uL (0-100); Basophils Percent Auto 0.5 % (0-2); Eosinophils Absolute Auto 200 /uL (0-450); Eosinophils Percent Auto 2.4 % (2-4); Hematocrit 43.5 % (41-53); Hemoglobin 14.9 g/dL (13.5-17.5); Lymphocytes Absolute Auto 1800 /uL (1100-4500); Lymphocytes Percent Auto 22.2 % (25-40); Mean Corpuscular HGB Conc 34.3 % (30-36); Mean Corpuscular Hemoglobin 29.4 PG (26-34); Mean Corpuscular Volume 85.9 fL (80-100); Monocytes Absolute Auto 900 /uL (0-900); Monocytes Percent Auto 10.8 % (3-14); Neutrophils Absolute Auto 5200 /uL (1500-7000); Neutrophils Percent Auto 64.1 % (50-75); Platelet Count 239 X10^3/uL (150-400); Red Blood Cell Count 5.06 X10^6/uL (4.5-5.9); Red Cell Distribution Width 13.8 % (11.6-14.8); White Blood Cell Count 8.1 X10^3/uL (4.5-11.0)
[2021-12-30 08:53] LABS: INR 1.4 (0.9-1.3); Prothrombin Time 15.7 SECONDS (10.1-12.7)
[2021-12-30 08:55] LABS: PTT Partial Thromboplastin Tim 37 SECONDS (26-36)
[2021-12-30 08:58] LABS: Alanine Aminotransferase 28 IU/L (<50); Albumin 4.1 g/dL (3.5-5.0); Albumin Globulin Ratio 1.2 (1.0-2.8); Alkaline Phosphatase 76 U/L (38-126); Aspartate Aminotransferase 32 IU/L (17-59); BUN Creatinine Ratio 21.3 (6-22); Bilirubin Total 1.2 mg/dL (0.2-1.3); Blood Urea Nitrogen 16 mg/dL (9-20); Carbon Dioxide 25 mmol/L (22-32); Chloride 104 mmol/L (98-107); Creatine Kinase 48 U/L (55-170); Estimated Glomerular Filt Rate > 60 mL/min (>60); Globulin 3.5 g/dL (1.7-4.1); Glucose 124 mg/dL (80-110); HEMOLYSIS 32 (0-50); Lipase 121 U/L (23-300); Potassium 3.5 mmol/L (3.4-5.1); Sodium 141 mmol/L (137-145); Total Protein 7.6 g/dL (6.3-8.2)
[2021-12-30 09:10] LABS: Troponin I 0.074 ng/mL (0.01-0.034)
[2021-12-30] MEDS: propofoL 200 MG/20 ML VIAL 100 MG IV (09:57)
== END 2021-12-30 12:15 | disposition home or self-care (01) ==
PROVIDERS: Emergency Provider Emergency Medicine; PCP Internal Medicine
DX: I48.91 Unspecified atrial fibrillation (principal); Z79.01 Long term (current) use of anticoagulants; R00.2 Palpitations; R07.9 Chest pain, unspecified
CPT/HCPCS: 36415; 71045; 80053; 82550; 83690; 84484; 85025; 85610; 85730; 92960; 93005; 96361; 96374; 96376; 99152; 99285; J2704

== ENCOUNTER 2022-01-08 06:35 | Emergency (ER) | payer MEDICARE, OTHER, SELFPAY ==
[2019-02-06 18:51] VITALS: BMI 29.2
[2022-01-08 06:44] VITALS: BP 155/83; PULSE 81; RESP 18; TEMP 36.7; O2SAT 99; BMI 29.9
[2022-01-08 07:05] LABS: Add Manual Diff / Slide Review NO; Basophils Absolute Auto 100 /uL (0-100); Basophils Percent Auto 0.8 % (0-2); Eosinophils Absolute Auto 200 /uL (0-450); Eosinophils Percent Auto 2.1 % (2-4); Hematocrit 43.2 % (41-53); Hemoglobin 14.6 g/dL (13.5-17.5); Lymphocytes Absolute Auto 2200 /uL (1100-4500); Lymphocytes Percent Auto 28.1 % (25-40); Mean Corpuscular HGB Conc 33.8 % (30-36); Mean Corpuscular Hemoglobin 29.1 PG (26-34); Mean Corpuscular Volume 86.2 fL (80-100); Monocytes Absolute Auto 700 /uL (0-900); Monocytes Percent Auto 9.7 % (3-14); Neutrophils Absolute Auto 4600 /uL (1500-7000); Neutrophils Percent Auto 59.3 % (50-75); Platelet Count 247 X10^3/uL (150-400); Red Blood Cell Count 5.01 X10^6/uL (4.5-5.9); Red Cell Distribution Width 13.7 % (11.6-14.8); White Blood Cell Count 7.7 X10^3/uL (4.5-11.0)
[2022-01-08 07:17] LABS: Alanine Aminotransferase 30 IU/L (<50); Albumin 4.1 g/dL (3.5-5.0); Albumin Globulin Ratio 1.2 (1.0-2.8); Alkaline Phosphatase 80 U/L (38-126); Aspartate Aminotransferase 29 IU/L (17-59); BUN Creatinine Ratio 19.2 (6-22); Bilirubin Total 0.8 mg/dL (0.2-1.3); Blood Urea Nitrogen 14 mg/dL (9-20); Calcium 9.1 mg/dL (8.4-10.2); Carbon Dioxide 26 mmol/L (22-32); Chloride 106 mmol/L (98-107); Creatine Kinase 42 U/L (55-170); Estimated Glomerular Filt Rate > 60 mL/min (>60); Globulin 3.5 g/dL (1.7-4.1); Glucose 116 mg/dL (80-110); HEMOLYSIS < 15 (0-50); Lipase 136 U/L (23-300); Magnesium 1.9 mg/dL (1.6-2.3); Potassium 3.5 mmol/L (3.4-5.1); Sodium 141 mmol/L (137-145); Total Protein 7.6 g/dL (6.3-8.2)
--- NOTE | 2022-01-08 07:24 | ED.ARRPALP ---
HPI - Arrhythmia/Palpitations General Chief Complaint: Arrhythmia/Palpitations Stated Complaint: thinks afib Time Seen by Provider: 01/08/22 06:50 Source: patient Mode of arrival: Ambulatory History of Present Illness HPI narrative: 76-year-old gentleman with history of hypertension, paroxysmal atrial fibrillation on metoprolol and Eliquis, BPH who presents with concerns for recurrent atrial fibrillation. In the past he is had episodes where his distal pulse feels that it is in the 80s but he still has a sensation that something isn't quite right and he is come to the emergency department and his heart rate is actually in the 170s to 180s. Had a similar sensation this morning. Notes that he has been significantly stressed recently dealing with continued grief over the loss of a son from melanoma a couple of years ago and the anniversary of the loss of his from carcinomatosis 1 year ago. Notes that he has been having some difficulty sleeping and has been mildly more anxious. He is seeing a counselor. He is wondering if this may be contributing to the increased heart rate irregularity. A follow-up appointment with Dr. Muñoz in 2 days. He denies any recent fevers, cough, chills he does note the palpitations. He is had no overt chest pain, orthopnea, dyspnea, lower extremity edema, vomiting, diarrhea, abdominal pain, headaches. He notes that he has been having difficulty sleeping over the last couple of days. He rarely drinks anymore. He does not use anything to help with acute anxiety nor insomnia. Related Data Home Medications Medication Instructions Recorded Confirmed multivitamin (Multiple Vitamins 1 tab PO DAILY ##0 03/29/17 02/06/19 tablet) vitamin B complex 1 tab PO DAILY ##0 07/27/18 02/06/19 tadalafil 20 mg tablet (Cialis) 20 mg PO DIRECTED PRN Erectile 01/29/19 02/06/19 Dysfunction lutein 20 mg-zeaxanthin 1,000 mcg 1 cap PO DAILY 02/06/19 02/06/19 capsule Previous Rx's Medication Instructions Recorded apixaban 5 mg tablet (Eliquis) 5 mg PO BID #60 tabs 01/29/19 metoprolol succinate 50 mg capsule 50 mg PO BID #120 ea 01/29/19 sprinkle, ext. release 24 hr diltiazem HCl 120 mg 120 mg PO BID #7 caps 02/08/19 capsule,extended release 24 hr lorazepam 0.5 mg tablet (Ativan) 0.5 mg PO TID PRN anxiety #14 tabs 01/08/22 Allergies Allergy/AdvReac Type Severity Reaction Status Date / Time No Known Drug Allergies Allergy Verified 12/30/21 08:46 Review of Systems Review of Systems Narrative: Remainder of complete review of systems is otherwise unremarkable except for that included in the HPI. Patient History Medical History Atrial fibrillation with rapid ventricular response BPH (benign prostatic hyperplasia) Diverticulosis Ectopic cardiac beats Hepatitis B Hx of lipoma Hypertension Surgical History History of lithotripsy S/P ureteral stent placement Family History Mother Hypertension Cancer Diabetes mellitus Grandfather Heart disease Grandmother Stroke Son Cancer Father No problems noted. Social History household members: spouse Smoking Status: Former smoker alcohol intake: current Smoking Status: Former smoker alcohol intake frequency: 0-2 drinks per day Substance Use Type: does not use Exam Initial Vital Signs Initial Vital Signs: Vital Signs Temperature 98.1 F 01/08/22 06:44 Pulse Rate 81 01/08/22 06:44 Respiratory Rate 18 01/08/22 06:44 Blood Pressure 155/83 H 01/08/22 06:44 Pulse Oximetry 99 01/08/22 06:44 Oxygen Delivery Method 01/08/22 06:44 General: Healthy appearing, in no acute distress. Able to give a complete and coherent history. Well-nourished well-developed HEENT: Moist mucous membranes, normal sclera with reactive pupils, Neck: No JVD, supple Respiratory: Lungs are clear to auscultation, no wheezing no rales no rhonchi. Full and symmetrical air movement Cardiac: Regular rate and rhythm no murmurs no bruits Abdomen: Soft, nontender, good bowel tones, no flank pain Skin: Warm and dry, no rashes Neurologic: Grossly neurologically intact with no obvious asymmetries or abnormalities Extremities: No trauma, well perfused Psych: Cooperative, appropriate insight and affect Course Orders Ordered: ED Orders 01/08/22 EKG-12 Lead Routine 01/08/22 06:55 Complete Blood Count AUTO DIFF Stat Comprehensive Metabolic Panel Stat Lipase Stat Magnesium Stat Troponin & CK Cardiac Panel Stat Vital Signs Vital signs: Vital Signs - 8 hr 01/08/22 06:44 01/08/22 07:49 01/08/22 08:00 Temperature 98.1 F Pulse Rate 81 78 Respiratory Rate 18 25 H Blood Pressure 155/83 H 164/91 H Pulse Oximetry 99 98 Oxygen Delivery Method Room Air 01/08/22 08:00 Temperature Pulse Rate 78 Respiratory Rate 23 Blood Pressure Pulse Oximetry 98 Oxygen Delivery Method MDM - Arrhythmia/Palpitations Lab Data Result diagrams: 01/08/22 06:55 01/08/22 06:55 Labs: Lab Results 01/08/22 01/08/22 Range/Units 06:55 06:55 WBC 7.7 (4.5-11.0) X10^3/uL RBC 5.01 (4.5-5.9) X10^6/uL Hgb 14.6 (13.5-17.5) g/dL Hct 43.2 (41-53) % MCV 86.2 (80-100) fL MCH 29.1 (26-34) PG MCHC 33.8 (30-36) % RDW 13.7 (11.6-14.8) % Plt Count 247 (150-400) X10^3/uL Neut % (Auto) 59.3 (50-75) % Lymph % (Auto) 28.1 (25-40) % Craig % (Auto) 9.7 (3-14) % Eos % (Auto) 2.1 (2-4) % Baso % (Auto) 0.8 (0-2) % Neut # (Auto) 4600 (1017-6280) /uL Lymph # (Auto) 2200 (8298-2415) /uL Craig # (Auto) 700 (0-900) /uL Eos # (Auto) 200 (0-450) /uL Baso # (Auto) 100 (0-100) /uL Sodium 141 (137-145) mmol/L Potassium 3.5 (3.4-5.1) mmol/L Chloride 106 (98-107) mmol/L Carbon Dioxide 26 (22-32) mmol/L BUN 14 (9-20) mg/dL Creatinine 0.73 (0.66-1.25) mg/dL Estimated GFR > 60 (>60) mL/min BUN/Creatinine Ratio 19.2 (6-22) Glucose 116 H (80-110) mg/dL Calcium 9.1 (8.4-10.2) mg/dL Magnesium 1.9 (1.6-2.3) mg/dL Total Bilirubin 0.8 (0.2-1.3) mg/dL AST 29 (17-59) IU/L ALT 30 (<50) IU/L Alkaline Phosphatase 80 (38-126) U/L Total Creatine Kinase 42 L (55-170) U/L CK-MB (CK-2) TNP CK-MB (CK-2) Rel Index TNP Troponin I 0.013 (0.01-0.034) ng/mL Total Protein 7.6 (6.3-8.2) g/dL Albumin 4.1 (3.5-5.0) g/dL Globulin 3.5 (1.7-4.1) g/dL Albumin/Globulin Ratio 1.2 (1.0-2.8) Lipase 136 (23-300) U/L Imaging Data Chest x-ray: Radiologist's Impresson: FINDINGS:? ? Surgical changes and devices:? None.? ? Lungs and pleura:? Lungs are clear.? No pleural effusions or pneumothorax.? ? Mediastinum:? Mediastinal contours appear unchanged.? Heart size is normal.? ? Bones and chest wall:? No suspicious bony lesions.? Overlying soft tissues appear unremarkable.? ? IMPRESSION:? No acute cardiopulmonary abnormality. ? ? ? Dictated by: Niranjan Orozco M.D. on 12/30/2021 at 8:22? ECG Data Interpretation: Sinus arrhythmia, frequent PACs and PVCs Rate of 74 Normal axis, no acute ischemic changes MDM Narrative Medical decision making narrative: 76-year-old gentleman with a history of paroxysmal atrial fibrillation with significant sinus arrhythmia today but not recurrent atrial fibrillation. Labs are unremarkable including electrolytes and magnesium. With the increased sensitivity that he has to PACs and PVCs causing rhythm irregularities I have suggested that he increase his metoprolol succinate. He had been at 50 mg b.i.d. and was having some minor side effects with this it was decreased to once a day. I am going to have him go up to 50 mg in the morning and 25 mg at HS. Will have him discuss this medication change with Dr. Muñoz in the next 2 days. 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 We briefly discussed some of the mobile apps and devices such as Merlin that can do brief EKGs at home. This may be helpful for him in determining if he is having sinus arrhythmia or recurrent atrial fibrillation. You will again discuss this with his microsoft application developer. With his grief reaction and increased recent stressors he will continue talking with his counselor but I also have given him a small prescription for Ativan as a bridging tool to help with the intense feelings as he continues to work through them. There is no evidence of depression, suicidal ideation or concerns for self-harm of any type. All findings reviewed with patient, he is given copies of his labs and EKGs to share with his microsoft application developer in 2 days. Encouraged him to return if he has any questions. Discharge Plan Departure Patient Disposition: Home Clinical Impression: Palpitations, Grief reaction Instructions: DI for Atrial Fibrillation Activity Restrictions/Additional Instructions: Thank you for coming in today. It was nice to see you again. Fortunately today, you are in sinus rhythm. You are having frequent both PACs and PVCs. Your lab work including electrolytes and troponin is very reassuring. There is no evidence of congestive heart failure or other complications. I am going to suggest that we increase your metoprolol from 50 mg in the morning to 50 mg in the morning and 25 mg in the evening. I know that 50 twice a day was somewhat symptomatic however I think that a bit more may help reduce the irregular heartbeats and simply be more comfortable for you. The loss of a loved one, much less two, is challenging. I am glad that your talking with a counselor. Making sure that you are taking good care of herself is important. Making sure that your sleeping is also important. I would encourage you to continue avoiding alcohol. I have given you small prescription for 0.5 mg of Ativan. This is a benzodiazepine that can help with acute anxiety, low-level chronic anxiety that is built during the day and can help your sympathetic nervous system calmed down enough so that you are able to get better sleep at night. This prescription was electronically transmitted to [facility] If you find that you are getting worse or develop any new symptoms, please feel free to return to the emergency department for further evaluation. Prescriptions: New lorazepam [Ativan] 0.5 mg tablet 0.5 mg PO TID PRN (Reason: anxiety) Qty: 14 0RF No Action multivitamin [Multiple Vitamins] 1 EACH tablet 1 tab PO DAILY Qty: 0 vitamin B complex Tablet 1 tab PO DAILY Qty: 0 tadalafil [Cialis] 20 mg tablet 20 mg PO DIRECTED PRN (Reason: Erectile Dysfunction) metoprolol succinate 50 mg capsule,sprinkle,ER 24hr 50 mg PO BID Qty: 120 0RF Eliquis 5 mg tablet 5 mg PO BID Qty: 60 0RF lutein-zeaxanthin 20 mg- 1,000 mcg Capsule 1 cap PO DAILY diltiazem HCl 120 mg Capsule,Extended Release 24hr 120 mg PO BID Qty: 7 0RF Referrals: Luis Lam MD [Primary Care Provider] -
[2022-01-08 07:28] LABS: Troponin I 0.013 ng/mL (0.01-0.034)
[2022-01-08 07:49] VITALS: PULSE 78; RESP 25; O2SAT 98
[2022-01-08 08:00] VITALS: BP 164/91; PULSE 78; RESP 23; O2SAT 98
[2022-01-08 08:30] VITALS: PULSE 66; RESP 11; O2SAT 96
[2022-01-08 09:00] VITALS: PULSE 69; RESP 13; O2SAT 96
== END 2022-01-08 09:04 | disposition home or self-care (01) ==
PROVIDERS: Emergency Medicine; Emergency Provider Emergency Medicine; PCP Internal Medicine
DX: R00.2 Palpitations (principal); I48.0 Paroxysmal atrial fibrillation; F43.21 Adjustment disorder with depressed mood; Z79.01 Long term (current) use of anticoagulants
CPT/HCPCS: 36415; 80053; 82550; 83690; 83735; 84484; 85025; 93005; 93010; 99284

== ENCOUNTER → 2022-02-07 07:03 | Outpatient (CLI) | payer MEDICARE, OTHER, SELFPAY ==
[2019-02-06 18:51] VITALS: BMI 29.2
[2022-02-07 08:02] LABS: Add Manual Diff / Slide Review NO; Basophils Absolute Auto 0 /uL (0-100); Basophils Percent Auto 0.6 % (0-2); Eosinophils Absolute Auto 200 /uL (0-450); Eosinophils Percent Auto 1.9 % (2-4); Hematocrit 45.6 % (41-53); Hemoglobin 15.7 g/dL (13.5-17.5); Lymphocytes Absolute Auto 1800 /uL (1100-4500); Lymphocytes Percent Auto 19.9 % (25-40); Mean Corpuscular HGB Conc 34.3 % (30-36); Mean Corpuscular Hemoglobin 29.6 PG (26-34); Mean Corpuscular Volume 86.2 fL (80-100); Monocytes Absolute Auto 700 /uL (0-900); Monocytes Percent Auto 8.2 % (3-14); Neutrophils Absolute Auto 6100 /uL (1500-7000); Neutrophils Percent Auto 69.4 % (50-75); Platelet Count 293 X10^3/uL (150-400); Red Blood Cell Count 5.29 X10^6/uL (4.5-5.9); Red Cell Distribution Width 13.5 % (11.6-14.8); White Blood Cell Count 8.8 X10^3/uL (4.5-11.0)
[2022-02-07 08:32] LABS: Alanine Aminotransferase 28 IU/L (<50); Albumin 4.5 g/dL (3.5-5.0); Albumin Globulin Ratio 1.2 (1.0-2.8); Alkaline Phosphatase 91 U/L (38-126); Aspartate Aminotransferase 33 IU/L (17-59); BUN Creatinine Ratio 21.9 (6-22); Bilirubin Total 1.1 mg/dL (0.2-1.3); Blood Urea Nitrogen 16 mg/dL (9-20); Calcium 9.5 mg/dL (8.4-10.2); Carbon Dioxide 27 mmol/L (22-32); Chloride 103 mmol/L (98-107); Cholesterol 202 mg/dL (140-199); Estimated Glomerular Filt Rate > 60 mL/min (>60); Globulin 3.8 g/dL (1.7-4.1); Glucose 108 mg/dL (80-110); HDL Cholesterol 43 mg/dL (40-60); HEMOLYSIS < 15 (0-50); LDL Cholesterol Calculated 128 mg/dL (<100); Potassium 3.6 mmol/L (3.4-5.1); Sodium 141 mmol/L (137-145); Total Protein 8.3 g/dL (6.3-8.2); Triglycerides 153 mg/dL (35-150)
[2022-02-07 09:01] LABS: Prostate Specific Antigen 7.49 ng/mL (0.10-4.00)
[2022-02-07 09:02] LABS: TSH w/ Reflex to FT4 1.57 uIU/mL (0.47-4.68)
[2022-02-08 04:34] LABS: Hepatitis B Core Antibody Positive (Negative); Hepatitis BE Antigen Negative (Negative)
== END ==
PROVIDERS: PCP Internal Medicine; Referring Provider Physician Assistant Medical; Visit Provider Physician Assistant Medical
DX: I10 Essential (primary) hypertension (principal); R97.20 Elevated prostate specific antigen [PSA]; F41.8 Other specified anxiety disorders; B18.9 Chronic viral hepatitis, unspecified
CPT/HCPCS: 36415; 80053; 80061; 84153; 84443; 85025; 86704; 87350

== ENCOUNTER → 2022-03-02 09:52 | Outpatient (CLI) | payer MEDICARE, OTHER, SELFPAY ==
[2019-02-06 18:51] VITALS: BMI 29.2
--- NOTE | 2022-03-02 09:54 | DI.ECHO.S_ITS ---
[facility]---------+ [facility] +---------+ : : [address] : : : : [id number] : : : : Phone: [phone]---------+ Echocardiogram Report + + :Name: TIANA MEDINA Study Date: 03/02/2022 Height: 71 in : :[facility] ReadingLocation: Weight: 215 lb : : Gender: Male BSA: 2.2 m2 : :: 1945 Age: 76 yrs BP: 166/89 mmHg: :Reason For Study: Mitral Refurgitation, PVCs, Paroxysmal : :atrial fibrillation : :Ordering Physician: AYSHA, : :TIAN Performed By: Syeda Menon : :Referring: TIAN OLMSTEAD : + + Interpretation Summary The left ventricle is normal in size and wall thickness. The ejection fraction is estimated to be 55-60%. There has been no significant change in LVEF since the previous exam. Significant LV dyssynchrony during PVCs. The right ventricle is mildly dilated. The right ventricular systolic function is normal. There is moderate mitral regurgitation. Compared to the prior echo study, there has been an mild increase in the severity of mitral regurgitation. There is mild aortic regurgitation. There is mild to moderate tricuspid regurgitation. Compared to the prior echo exam, there has been an increase in TR severity. The right ventricular systolic pressure is estimated to be at least 27.4 mmHg based on an estimated right atrial pressure of 3 mm Hg. Procedure: A two-dimensional transthoracic echocardiogram with color flow and Doppler was performed. The patient was in normal sinus rhythm during the exam. The patient had frequent PVCs during the exam. Left Ventricle: The left ventricle is normal in size and wall thickness. There is no thrombus. The ejection fraction is estimated to be 55-60%. There has been no significant change since the previous exam. Significant LV dyssynchrony during PVCs. Diastolic parameters suggest a relaxation abnormality of the left ventricle, consistent with probable normal filling pressures. Right Ventricle: The right ventricle is mildly dilated. The right ventricular systolic function is normal. Atria: The left atrium is severely dilated. The left atrium has mildly increased in size since the prior echo exam. The right atrium is moderately dilated. There is no Doppler evidence for an interatrial shunt. Mitral Valve: The mitral valve leaflets appear mildly thickened, but open well. There is mild mitral annular calcification. No significant mitral valve stenosis. There is moderate mitral regurgitation. Compared to the prior echo study, there has been an increase in the severity of mitral regurgitation. Aortic Valve: The aortic valve is trileaflet. The aortic valve is mildly calcified. There is no aortic valve stenosis. There is mild aortic regurgitation. Tricuspid Valve: The tricuspid valve is normal. There is mild to moderate tricuspid regurgitation. Compared to the prior echo exam, there has been an increase in TR severity. The right ventricular systolic pressure is estimated to be at least 27.4 mmHg based on an estimated right atrial pressure of 3 mm Hg. Pulmonic Valve: The pulmonic valve leaflets are thin and pliable; valve motion is normal. There is mild to moderate pulmonic regurgitation. Great Vessels: The aortic root is normal size. The IVC is of normal diameter and collapses greater than 50% with a sniff. This suggests a low right atrial pressure of 3 mm Hg. MMode/2D Measurements & Calculations LVIDd: 4.6 cm LVOT diam: 2.2 cm LVIDs: 2.9 cm Ao root diam: 3.7 cm FS: 37.0 % asc Aorta Diam: 3.5 cm EPSS: 0.30 cm IVSd: 1.0 cm LVPWd: 1.0 cm LV roche. diameter/BSA (cm/m^2): 2.1 LV sys. diameter/BSA (cm/m^2): 1.3 LA dimension: 5.1 cm RA long axis: 5.5 cm LA A2 area: 25.5 cm2 RA area: 24.9 cm2 LA A4 area: 29.6 cm2 RA vol: 96.3 ml LA length (vol): 6.1 cm RA : 44.3 ml/m2 LA vol: 104.7 ml LA vol index: 48.1 ml/m2 LVLs ap4: 6.5 cm LVLd ap2: 8.5 cm LVLs ap2: 6.7 cm TAPSE_phl: 3.2 cm Doppler Measurements & Calculations Ao V2 max: 172.0 cm/sec LVOT Max Michael: 146.0 cm/sec Ao V2 mean: 121.0 cm/sec LV V1 max P.5 mmHg Ao max P.0 mmHg LV V1 VTI: 33.1 cm Ao mean P.0 mmHg JACKLYN(I,D): 3.5 cm2 Ao V2 VTI: 36.1 cm JACKLYN(V,D): 3.2 cm2 sev ratio: 0.92 JACKLYN indexed to BSA (cm^2/m^2): 1.6 AI P1/2t: 440.6 msec AI dec slope: 298.5 cm/sec2 MV E max michael: 63.0 cm/sec TR max michael: 247.0 cm/sec MV A max michael: 89.7 cm/sec TR max P.4 mmHg MV E/A: 0.70 PA V2 max: 132.0 cm/sec Med Peak E' Michael: 4.5 cm/sec PA V2 mean: 86.0 cm/sec E/E' med: 13.9 PA mean P.5 mmHg Lat Peak E' Michael: 7.6 cm/sec E/E' lat: 8.3 E/e' average: 11.1 MV dec time: 0.59 sec MVA(VTI): 4.3 cm2 MR ERO: 0.06 cm2 MV V2 mean: 61.4 cm/sec MR VTI: 227.0 cm MV mean P.0 mmHg MV V2 VTI: 29.6 cm MR PISA: 1.0 cm2 SV(LVOT): 125.8 ml MR flow rate: 37.3 cm3/sec MR PISA radius: 0.40 cm AV P1/2t-pr_phl: 527.5 msec MV P1/2t-pr_phl: 173.5 msec AV VR_phl: 0.85 JACKLYN(VTI)/BSA_phl: 1.6 Reading Physician:04:30 PM
== END ==
PROVIDERS: PCP Internal Medicine; Referring Provider Internal Medicine Cardiovascular Disease; Visit Provider Internal Medicine Cardiovascular Disease
DX: I49.3 Ventricular premature depolarization (principal); I48.0 Paroxysmal atrial fibrillation; I08.3 Combined rheumatic disorders of mitral, aortic and tricuspid valves
CPT/HCPCS: 93306

== ENCOUNTER 2022-05-18 06:54 | Emergency (ER) | payer MEDICARE, OTHER, SELFPAY ==
[2019-02-06 18:51] VITALS: BMI 29.2
[2022-05-18] VITALS (16 sets, daily range): BP systolic 148–188; BP diastolic 71–92; PULSE 65–87; RESP 17; TEMP 36.9; O2SAT 94–98; BMI 30.7
--- NOTE | 2022-05-18 07:51 | DI.CT.S_ITS ---
PROCEDURE: CT ABDOMEN PELVIS W CON INDICATIONS: eval diverticulitis TECHNIQUE: After the administration of IV contrast, axial sections were acquired from the lung bases to the pubic symphysis. Coronal and sagittal reformats were performed. For radiation dose reduction, the following was used: automated exposure control, adjustment of mA and/or kV according to patient size. COMPARISON: [facility], CT, CT ABDOMEN PELVIS W CON, 07/27/2018, 17:24. FINDINGS: Image quality: Excellent. Lung bases: No pleural effusion. Heart: No significant findings. ABDOMEN: Liver: Several hepatic cysts. Gallbladder: Small gallstones. Not distended. Biliary ducts: Unremarkable. Pancreas: Unremarkable. Spleen: A few small cysts or hemangiomas. Adrenal Glands: Unremarkable. Kidneys and Ureters: No hydronephrosis. Simple cyst at the inferior pole of the left kidney measuring 4.9 cm. Stomach and Bowel: Probable small hiatal hernia. Stomach is not distended. No small bowel obstruction. Normal appendix. Diverticulosis. Diverticulosis at the left lower quadrant, (2/57), new. No loculated fluid collection. No free air. Peritoneum: No ascites. No gross pneumoperitoneum. Ventral Wall: Tiny fat containing umbilical hernia. Abdominal Nodes: No retroperitoneal or mesenteric adenopathy by size criteria. Vessels: Aorta and inferior vena cava are normal in size. Moderate calcified atherosclerotic plaque. The aneurysmal dilatation of the celiac artery. PELVIS: Pelvic Organs: Prostatomegaly. Median lobe hypertrophy. Bladder: Urachal remnant. No stone. Pelvic Nodes: No enlarged lymph nodes. Miscellaneous: No inguinal hernias are seen. Bones: No suspicious lesion. DDD at L5-S1. IMPRESSION: 1. Left lower quadrant diverticulitis. No abscess. 2. Prostatomegaly with median lobe hypertrophy. Dictated by: Niranjan Orozco M.D. on 05/18/2022 at 10:34 Approved by: Niranjan Orozco M.D. on 05/18/2022 at 10:42
--- NOTE | 2022-05-18 08:21 | ED.ABDPAIN ---
HPI - Abdominal Pain General Chief Complaint: Abdominal Pain Stated Complaint: abd pain Time Seen by Provider: 05/18/22 07:09 Source: patient Mode of arrival: Ambulatory History of Present Illness HPI narrative: 76-year-old male presenting with abdominal pain that is localized to the left lower quadrant of the abdomen. Patient reports symptoms are consistent with prior episodes of diverticulitis. Pain is intermittent, associated with change in stool caliber and consistency, no lianne blood per rectum, symptoms have been ongoing over the last 2-3 days. Bloating is present. Related Data Home Medications Medication Instructions Recorded Confirmed multivitamin (Multiple Vitamins 1 tab PO DAILY ##0 03/29/17 02/06/19 tablet) vitamin B complex 1 tab PO DAILY ##0 07/27/18 02/06/19 tadalafil 20 mg tablet (Cialis) 20 mg PO DIRECTED PRN Erectile 01/29/19 02/06/19 Dysfunction lutein 20 mg-zeaxanthin 1,000 mcg 1 cap PO DAILY 02/06/19 02/06/19 capsule Previous Rx's Medication Instructions Recorded apixaban 5 mg tablet (Eliquis) 5 mg PO BID #60 tabs 01/29/19 metoprolol succinate 50 mg capsule 50 mg PO BID #120 ea 01/29/19 sprinkle, ext. release 24 hr diltiazem HCl 120 mg 120 mg PO BID #7 caps 02/08/19 capsule,extended release 24 hr lorazepam 0.5 mg tablet (Ativan) 0.5 mg PO TID PRN anxiety #14 tabs 01/08/22 amoxicillin 875 mg-potassium 1 tab PO Q12H #14 tabs 05/18/22 clavulanate 125 mg tablet Allergies Allergy/AdvReac Type Severity Reaction Status Date / Time No Known Drug Allergies Allergy Verified 12/30/21 08:46 Patient History Medical History Atrial fibrillation with rapid ventricular response BPH (benign prostatic hyperplasia) Diverticulosis Ectopic cardiac beats Hepatitis B Hx of lipoma Hypertension Surgical History History of lithotripsy S/P ureteral stent placement Family History Mother Hypertension Cancer Diabetes mellitus Grandfather Heart disease Grandmother Stroke Son Cancer Father No problems noted. Social History household members: spouse Smoking Status: Former smoker alcohol intake: current Smoking Status: Former smoker alcohol intake frequency: 0-2 drinks per day Substance Use Type: does not use Exam Narrative Exam Narrative: Vitals reviewed. Nursing note reviewed Constitutional: interactive HENT: Moist mucous membranes EYES: No scleral icterus NECK: no masses CV: Well perfused peripherally, no cyanosis present PULM: Unlabored respirations, symmetric chest rise ABD: Non-distended, tender over the left lower quadrant MS: No gross deformities, no asymmetric edema noted SKIN: Warm and dry. PSYCH: Appropriate affect NEURO: Follows simple commands, moves extremities, interactive with exam Initial Vital Signs Initial Vital Signs: Vital Signs Pulse Rate 70 05/18/22 07:08 Pulse Oximetry 98 05/18/22 07:08 Course Orders Ordered: ED Orders 05/18/22 07:11 Complete Blood Count AUTO DIFF Stat Comprehensive Metabolic Panel Stat Lipase Stat Magnesium Stat 05/18/22 07:51 CT abdomen pelvis w con Stat Vital Signs Vital signs: Vital Signs - 8 hr 05/18/22 07:13 Temperature 98.5 F Pulse Rate 76 Respiratory Rate 17 Blood Pressure 188/90 H Pulse Oximetry 98 Oxygen Delivery Method Room Air MDM - Abdominal Pain Lab Data 05/18/22 09:06 05/18/22 09:06 Labs: Lab Results 05/18/22 05/18/22 Range/Units 09:06 09:06 WBC 8.1 (4.5-11.0) X10^3/uL RBC 5.35 (4.5-5.9) X10^6/uL Hgb 15.6 (13.5-17.5) g/dL Hct 46.5 (41-53) % MCV 86.8 (80-100) fL MCH 29.1 (26-34) PG MCHC 33.5 (30-36) % RDW 13.0 (11.6-14.8) % Plt Count 247 (150-400) X10^3/uL Neut % (Auto) 72.8 (50-75) % Lymph % (Auto) 18.1 L (25-40) % [place] % (Auto) 7.8 (3-14) % Eos % (Auto) 0.8 L (2-4) % Baso % (Auto) 0.5 (0-2) % Neut # (Auto) 5900 (3323-4273) /uL Lymph # (Auto) 1500 (9187-7104) /uL [place] # (Auto) 600 (0-900) /uL Eos # (Auto) 100 (0-450) /uL Baso # (Auto) 0 (0-100) /uL Sodium 139 (137-145) mmol/L Potassium 3.7 (3.4-5.1) mmol/L Chloride 102 (98-107) mmol/L Carbon Dioxide 29 (22-32) mmol/L BUN 14 (9-20) mg/dL Creatinine 0.69 (0.66-1.25) mg/dL Estimated GFR > 60 (>60) mL/min BUN/Creatinine Ratio 20.3 (6-22) Glucose 117 H (80-110) mg/dL Calcium 9.5 (8.4-10.2) mg/dL Magnesium 2.0 (1.6-2.3) mg/dL Total Bilirubin 1.6 H (0.2-1.3) mg/dL AST 32 (17-59) IU/L ALT 30 (<50) IU/L Alkaline Phosphatase 103 (38-126) U/L Total Protein 8.3 H (6.3-8.2) g/dL Albumin 4.3 (3.5-5.0) g/dL Globulin 4.0 (1.7-4.1) g/dL Albumin/Globulin Ratio 1.1 (1.0-2.8) Lipase 116 (23-300) U/L Point of care testing: Urine Dip Bedside Urine Glucose Negative Bedside Urine Bilirubin - Negative Bedside Urine Ketone - Negative Urine Specific [place] 1.010 Bedside Urine Occult Blood - Negative Bedside Urine pH 8.0 Bedside Urine Protein - Negative Bedside Urine Urobilinogen - Negative Bedside Urine Nitrite - Negative Bedside Urine Leukocytes - Negative Esterase MDM Narrative Medical decision making narrative: 76-year-old male presenting with abdominal pain. On presentation, vital signs notable for hypertension and otherwise reassuring. Physical exam notable for a well-appearing 76-year-old male who is in no acute distress, reassuring cardiopulmonary exam, abdomen with localized tenderness to left lower quadrant. Initial concern for acute intra-abdominal pathology including diverticulitis, colitis, vascular pathology, viral syndrome, focal bacterial infection, hernia/obstruction. Low suspicion for ACS given patient with symptoms clearly localized to the left lower quadrant of the abdomen, no associated chest pain or shortness of breath, no diaphoresis or nausea/vomiting, further evaluation for cardiac pathology was deferred. Broad screening labs were obtained. CT abdomen pelvis obtained with contrast to further evaluate for diverticulitis and notable for acute uncomplicated diverticulitis. Discussed findings with patient at bedside. Discussed plan for antibiotics and outpatient follow up. return precautions discussed. Discharge Plan Departure Patient Disposition: Home Clinical Impression: Diverticulitis large intestine Instructions: DI for Diverticulitis Prescriptions: New amoxicillin-pot clavulanate 875-125 mg tablet 1 tab PO Q12H Qty: 14 0RF No Action multivitamin [Multiple Vitamins] 1 EACH tablet 1 tab PO DAILY Qty: 0 vitamin B complex Tablet 1 tab PO DAILY Qty: 0 tadalafil [Cialis] 20 mg tablet 20 mg PO DIRECTED PRN (Reason: Erectile Dysfunction) metoprolol succinate 50 mg capsule,sprinkle,ER 24hr 50 mg PO BID Qty: 120 0RF Eliquis 5 mg tablet 5 mg PO BID Qty: 60 0RF lutein-zeaxanthin 20 mg- 1,000 mcg Capsule 1 cap PO DAILY diltiazem HCl 120 mg Capsule,Extended Release 24hr 120 mg PO BID Qty: 7 0RF lorazepam [Ativan] 0.5 mg tablet 0.5 mg PO TID PRN (Reason: anxiety) Qty: 14 0RF Referrals: Luis Lam MD [Primary Care Provider] - Stand Alone Forms: Patient Portal/API
[2022-05-18 09:15] LABS: Add Manual Diff / Slide Review NO; Basophils Absolute Auto 0 /uL (0-100); Basophils Percent Auto 0.5 % (0-2); Eosinophils Absolute Auto 100 /uL (0-450); Eosinophils Percent Auto 0.8 % (2-4); Hematocrit 46.5 % (41-53); Hemoglobin 15.6 g/dL (13.5-17.5); Lymphocytes Absolute Auto 1500 /uL (1100-4500); Lymphocytes Percent Auto 18.1 % (25-40); Mean Corpuscular HGB Conc 33.5 % (30-36); Mean Corpuscular Hemoglobin 29.1 PG (26-34); Mean Corpuscular Volume 86.8 fL (80-100); Monocytes Absolute Auto 600 /uL (0-900); Monocytes Percent Auto 7.8 % (3-14); Neutrophils Absolute Auto 5900 /uL (1500-7000); Neutrophils Percent Auto 72.8 % (50-75); Platelet Count 247 X10^3/uL (150-400); Red Blood Cell Count 5.35 X10^6/uL (4.5-5.9); White Blood Cell Count 8.1 X10^3/uL (4.5-11.0)
[2022-05-18 09:38] LABS: Alanine Aminotransferase 30 IU/L (<50); Albumin 4.3 g/dL (3.5-5.0); Albumin Globulin Ratio 1.1 (1.0-2.8); Alkaline Phosphatase 103 U/L (38-126); Aspartate Aminotransferase 32 IU/L (17-59); BUN Creatinine Ratio 20.3 (6-22); Bilirubin Total 1.6 mg/dL (0.2-1.3); Blood Urea Nitrogen 14 mg/dL (9-20); Calcium 9.5 mg/dL (8.4-10.2); Carbon Dioxide 29 mmol/L (22-32); Chloride 102 mmol/L (98-107); Estimated Glomerular Filt Rate > 60 mL/min (>60); Glucose 117 mg/dL (80-110); HEMOLYSIS < 15 (0-50); Lipase 116 U/L (23-300); Potassium 3.7 mmol/L (3.4-5.1); Sodium 139 mmol/L (137-145); Total Protein 8.3 g/dL (6.3-8.2)
== END 2022-05-18 11:44 | disposition home or self-care (01) ==
PROVIDERS: Emergency Medicine; Emergency Provider Emergency Medicine; PCP Internal Medicine
DX: K57.92 Diverticulitis of intestine, part unspecified, without perforation or abscess without bleeding (principal); Z79.01 Long term (current) use of anticoagulants
CPT/HCPCS: 36415; 74177; 80053; 81003; 83690; 83735; 85025; 99283; 99284; Q9967

== ENCOUNTER → 2022-10-18 07:29 | Outpatient (CLI) | payer MEDICARE, OTHER, SELFPAY ==
[2019-02-06 18:51] VITALS: BMI 29.2
[2022-10-18 09:30] LABS: Add Manual Diff / Slide Review NO; Basophils Absolute Auto 0 /uL (0-100); Basophils Percent Auto 0.5 % (0-2); Eosinophils Absolute Auto 200 /uL (0-450); Eosinophils Percent Auto 2.4 % (2-4); Hematocrit 42.8 % (41-53); Hemoglobin 14.6 g/dL (13.5-17.5); Lymphocytes Absolute Auto 1800 /uL (1100-4500); Lymphocytes Percent Auto 28.3 % (25-40); Mean Corpuscular HGB Conc 34.1 % (30-36); Mean Corpuscular Hemoglobin 29.7 PG (26-34); Mean Corpuscular Volume 86.9 fL (80-100); Monocytes Absolute Auto 600 /uL (0-900); Monocytes Percent Auto 9.7 % (3-14); Neutrophils Absolute Auto 3800 /uL (1500-7000); Neutrophils Percent Auto 59.1 % (50-75); Platelet Count 240 X10^3/uL (150-400); Red Blood Cell Count 4.92 X10^6/uL (4.5-5.9); White Blood Cell Count 6.4 X10^3/uL (4.5-11.0)
[2022-10-18 09:48] LABS: Alanine Aminotransferase 28 IU/L (<50); Albumin Globulin Ratio 1.2 (1.0-2.8); Alkaline Phosphatase 86 U/L (38-126); Aspartate Aminotransferase 34 IU/L (17-59); BUN Creatinine Ratio 23.6 (6-22); Blood Urea Nitrogen 17 mg/dL (9-20); Calcium 9.2 mg/dL (8.4-10.2); Carbon Dioxide 25 mmol/L (22-32); Chloride 106 mmol/L (98-107); Cholesterol 187 mg/dL (140-199); Estimated Glomerular Filt Rate > 60 mL/min (>60); Globulin 3.3 g/dL (1.7-4.1); Glucose 106 mg/dL (80-110); HDL Cholesterol 45 mg/dL (40-60); HEMOLYSIS < 15 (0-50); LDL Cholesterol Calculated 115 mg/dL (<100); Potassium 3.6 mmol/L (3.4-5.1); Sodium 140 mmol/L (137-145); Total Protein 7.3 g/dL (6.3-8.2); Triglycerides 136 mg/dL (35-150)
[2022-10-18 10:17] LABS: TSH w/ Reflex to FT4 0.68 uIU/mL (0.47-4.68)
== END ==
PROVIDERS: PCP Internal Medicine; Referring Provider Physician Assistant Medical; Visit Provider Physician Assistant Medical
DX: R97.20 Elevated prostate specific antigen [PSA] (principal); I10 Essential (primary) hypertension; Z13.220 Encounter for screening for lipoid disorders; I48.91 Unspecified atrial fibrillation
CPT/HCPCS: 36415; 80053; 80061; 84443; 85025

== ENCOUNTER → 2023-05-07 07:01 | Outpatient (CLI) | payer MEDICARE, OTHER, SELFPAY ==
[2019-02-06 18:51] VITALS: BMI 29.2
[2023-05-07 08:16] LABS: Add Manual Diff / Slide Review NO; Basophils Absolute Auto 0 /uL (0-100); Basophils Percent Auto 0.4 % (0-2); Eosinophils Absolute Auto 200 /uL (0-450); Eosinophils Percent Auto 2.4 % (2-4); Hematocrit 43.8 % (41-53); Hemoglobin 15.1 g/dL (13.5-17.5); Lymphocytes Absolute Auto 1900 /uL (1100-4500); Lymphocytes Percent Auto 30.1 % (25-40); Mean Corpuscular HGB Conc 34.4 % (30-36); Mean Corpuscular Hemoglobin 29.9 PG (26-34); Mean Corpuscular Volume 86.7 fL (80-100); Monocytes Absolute Auto 600 /uL (0-900); Monocytes Percent Auto 10.1 % (3-14); Neutrophils Absolute Auto 3600 /uL (1500-7000); Platelet Count 230 X10^3/uL (150-400); Red Blood Cell Count 5.05 X10^6/uL (4.5-5.9); Red Cell Distribution Width 13.2 % (11.6-14.8); White Blood Cell Count 6.3 X10^3/uL (4.5-11.0)
[2023-05-07 08:52] LABS: Alanine Aminotransferase 27 IU/L (<50); Albumin Globulin Ratio 1.2 (1.0-2.8); Alkaline Phosphatase 80 U/L (38-126); Aspartate Aminotransferase 30 IU/L (17-59); BUN Creatinine Ratio 22.9 (6-22); Bilirubin Total 1.2 mg/dL (0.2-1.3); Blood Urea Nitrogen 19 mg/dL (9-20); Calcium 9.4 mg/dL (8.4-10.2); Carbon Dioxide 27 mmol/L (22-32); Chloride 110 mmol/L (98-107); Cholesterol 186 mg/dL (140-199); Estimated Glomerular Filt Rate > 60 mL/min (>60); Globulin 3.3 g/dL (1.7-4.1); Glucose 102 mg/dL (80-110); HDL Cholesterol 44 mg/dL (40-60); HEMOLYSIS < 15 (0-50); LDL Cholesterol Calculated 112 mg/dL (<100); Potassium 3.6 mmol/L (3.4-5.1); Sodium 143 mmol/L (137-145); Total Protein 7.3 g/dL (6.3-8.2); Triglycerides 149 mg/dL (35-150)
[2023-05-07 09:17] LABS: TSH w/ Reflex to FT4 1.32 uIU/mL (0.47-4.68)
== END ==
LOC: LAB 07:04
PROVIDERS: PCP Internal Medicine; Referring Provider Physician Assistant Medical; Visit Provider Internal Medicine
DX: R97.20 Elevated prostate specific antigen [PSA] (principal); I10 Essential (primary) hypertension; I48.91 Unspecified atrial fibrillation; B18.9 Chronic viral hepatitis, unspecified; Z13.220 Encounter for screening for lipoid disorders
CPT/HCPCS: 36415; 80053; 80061; 84443; 85025

== ENCOUNTER 2023-07-02 12:02 | Emergency (ER) | payer MEDICARE, OTHER, SELFPAY ==
[2019-02-06 18:51] VITALS: BMI 29.2
[2023-07-02 12:16] VITALS: BP 174/50; PULSE 55; RESP 12; TEMP 36.6; O2SAT 98; BMI 31.4
--- NOTE | 2023-07-02 12:41 | DI.RAD.S_ITS ---
PROCEDURE: XR CHEST 1V INDICATIONS: chest pain TECHNIQUE: One view of the chest was acquired. COMPARISON: [facility], CR, XR CHEST 1V, 12/30/2021, 9:02. FINDINGS: Surgical changes and devices: None. Lungs and pleura: Lungs are clear. No pleural effusions or pneumothorax. Mediastinum: Mediastinal contours appear normal. Heart size is normal. Bones and chest wall: No suspicious bony lesions. Overlying soft tissues appear unremarkable. IMPRESSION: No acute cardiopulmonary pathology. Dictated by: Rodrigo Phillips M.D. on 07/02/2023 at 14:06 Approved by: Rodrigo Phillips M.D. on 07/02/2023 at 14:07
[2023-07-02 12:54] LABS: PTT Partial Thromboplastin Tim 21 SECONDS (25.1-36.5)
[2023-07-02 12:55] LABS: Alanine Aminotransferase 26 IU/L (<50); Albumin 4.3 g/dL (3.5-5.0); Albumin Globulin Ratio 1.3 (1.0-2.8); Alkaline Phosphatase 77 U/L (38-126); Aspartate Aminotransferase 33 IU/L (17-59); BUN Creatinine Ratio 24.6 (6-22); Bilirubin Total 0.9 mg/dL (0.2-1.3); Blood Urea Nitrogen 17 mg/dL (9-20); Calcium 9.4 mg/dL (8.4-10.2); Carbon Dioxide 27 mmol/L (22-32); Chloride 108 mmol/L (98-107); Creatine Kinase 50 U/L (55-170); Estimated Glomerular Filt Rate > 60 mL/min (>60); Globulin 3.3 g/dL (1.7-4.1); Glucose 112 mg/dL (80-110); HEMOLYSIS 18 (0-50); Lipase 127 U/L (23-300); Potassium 3.5 mmol/L (3.4-5.1); Sodium 140 mmol/L (137-145); Total Protein 7.6 g/dL (6.3-8.2)
[2023-07-02 12:58] LABS: Add Manual Diff / Slide Review NO; Basophils Absolute Auto 0 /uL (0-100); Basophils Percent Auto 0.3 % (0-2); Eosinophils Absolute Auto 100 /uL (0-450); Eosinophils Percent Auto 1.9 % (2-4); Hematocrit 42.7 % (41-53); Hemoglobin 14.6 g/dL (13.5-17.5); Lymphocytes Absolute Auto 2000 /uL (1100-4500); Lymphocytes Percent Auto 27.2 % (25-40); Mean Corpuscular HGB Conc 34.3 % (30-36); Mean Corpuscular Hemoglobin 30.1 PG (26-34); Mean Corpuscular Volume 87.8 fL (80-100); Monocytes Absolute Auto 800 /uL (0-900); Monocytes Percent Auto 10.9 % (3-14); Neutrophils Absolute Auto 4400 /uL (1500-7000); Neutrophils Percent Auto 59.7 % (50-75); Platelet Count 236 X10^3/uL (150-400); Red Blood Cell Count 4.86 X10^6/uL (4.5-5.9); Red Cell Distribution Width 13.2 % (11.6-14.8); White Blood Cell Count 7.4 X10^3/uL (4.5-11.0)
[2023-07-02 13:04] LABS: INR 1.2 (0.9-1.3); Prothrombin Time 13.8 SECONDS (9.4-12.5)
[2023-07-02 13:06] LABS: Troponin I < 0.012 ng/mL (0.01-0.034)
[2023-07-02 13:45] LABS: Appearance Urine UA CLEAR; Bilirubin Urine UA NEGATIVE (NEGATIVE); Color Urine UA YELLOW; Glucose Urine UA NEGATIVE (Negative); Ketones Urine UA NEGATIVE (NEGATIVE); Leukocyte Esterase Urine UA NEGATIVE (NEGATIVE); Nitrite Urine UA NEGATIVE (Negative); Occult Blood Urine UA TRACE-INTACT (Negative); Protein Urine UA NEGATIVE (Negative); Specific Gravity Urine UA 1.015 (1.000-1.035); Urine Volume 10mL (spun); Urobilinogen Urine UA 0.2 E.U./dL (0.2); pH Urine UA 6.5 (4.5-8.0)
[2023-07-02 13:47] LABS: Bacteria Urine None Seen; Culture Indicated Urine Cult Not Indicated; RBC Urine 0-1/HPF (0-5/HPF); Squamous Epithelial Cell Urine 0-1 /HPF (0-5/HPF); WBC Urine None Seen (0-5/HPF)
[2023-07-02 13:57] VITALS: BP 137/59; PULSE 73; RESP 18; O2SAT 94
[2023-07-02 14:00] VITALS: BP 151/80; PULSE 78; RESP 23; O2SAT 98
[2023-07-02 14:31] VITALS: BP 153/82; PULSE 75; RESP 24; O2SAT 96
[2023-07-02 14:46] LABS: NT-proBNP (BNP-Adult 18+) 77 pg/mL (<450)
[2023-07-02 15:07] LABS: Creatine Kinase 46 U/L (55-170)
[2023-07-02 15:20] LABS: Troponin I < 0.012 ng/mL (0.01-0.034)
[2023-07-02 15:30] VITALS: BP 151/81; PULSE 61; RESP 20; O2SAT 96
--- NOTE | 2023-07-02 16:57 | ED_ITS ---
HPI - Arrhythmia/Palpitations <Skyler Gomez PA-C - Last Filed: 07/02/23 18:21> General Chief Complaint: Arrhythmia/Palpitations Stated Complaint: PALPITATIONS Time Seen by Provider: 07/02/23 12:38 Source: patient Mode of arrival: Ambulatory History of Present Illness HPI narrative: 77-year-old male with past medical history AFib, on Eliquis, BPH, hypertension, obstructive sleep apnea presents to the ED with palpitations and fatigue for 3 days. Patient states that 3 days ago, he had a late night, following which the next day he felt extremely fatigued and felt that his heart rhythm was quite irregular. Patient takes metoprolol for the hypertension and rate control. Patient states that the next 2 nights he has had good sleep, has used his machine. However, patient still continues to feel fatigued and states that his heart rhythm still feels very irregular which is unusual. Patient states that whenever is heart rhythm feels irregular, taking his metoprolol usually resolves the issue. Patient denies chest pain, shortness of breath, fever, chills, rhinorrhea, cough, lightheadedness, dizziness, syncope. Related Data Home Medications Medication Instructions Recorded Confirmed multivitamin (Multiple Vitamins 1 tab PO DAILY ##0 03/29/17 02/06/19 tablet) vitamin B complex 1 tab PO DAILY ##0 07/27/18 02/06/19 tadalafil 20 mg tablet (Cialis) 20 mg PO DIRECTED PRN Erectile 01/29/19 02/06/19 Dysfunction lutein 20 mg-zeaxanthin 1,000 mcg 1 cap PO DAILY 02/06/19 02/06/19 capsule Previous Rx's Medication Instructions Recorded apixaban 5 mg tablet (Eliquis) 5 mg PO BID #60 tabs 01/29/19 metoprolol succinate 50 mg capsule 50 mg PO BID #120 ea 01/29/19 sprinkle, ext. release 24 hr diltiazem HCl 120 mg 120 mg PO BID #7 caps 02/08/19 capsule,extended release 24 hr lorazepam 0.5 mg tablet (Ativan) 0.5 mg PO TID PRN anxiety #14 tabs 01/08/22 amoxicillin 875 mg-potassium 1 tab PO Q12H #14 tabs 05/18/22 clavulanate 125 mg tablet Allergies Allergy/AdvReac Type Severity Reaction Status Date / Time No Known Drug Allergies Allergy Verified 07/02/23 12:19 Review of Systems <Skyler Gomez PA-C - Last Filed: 07/02/23 18:21> Constitutional Constitutional: Denies chills, Reports fatigue, Denies fever(s), Denies frequent falls, Denies lethargy and Denies weakness Eyes Eyes: Denies change in vision, Denies eye discharge, Denies irritation and Denies loss of vision ENT Ears, Nose, Mouth, and Throat: Denies change in voice, Denies dizziness, Denies neck pain, Denies sore throat and Denies throat swelling Cardiovascular Cardiovascular: Denies chest pain, Reports irregular heart rhythm, Denies lightheadedness, Denies palpitations, Denies dyspnea, Denies dyspnea on exertion and Denies orthopnea Respiratory Respiratory: Denies cough, Denies dyspnea, Denies dyspnea on exertion and Denies wheezing Gastrointestinal Gastrointestinal: Denies abdominal pain, Denies change in bowel habits, Denies diarrhea, Denies nausea and Denies vomiting Musculoskeletal Musculoskeletal: Denies neck pain and Denies numbness Integumentary/Breasts Skin/Breast: Denies pruritus, Denies erythema, Denies rash and Denies wounds Neurologic Neurologic: Denies behavioral changes, Denies confusion, Denies dizziness, Denies frequent falls, Denies loss of vision, Denies numbness and Denies weakness Psychiatric Psychiatric: Denies anxiety, Denies behavioral changes, Denies confusion, Denies depression, Denies homicidal ideation and Denies suicidal ideation Endocrine Endocrine: Reports fatigue, Denies flushing and Denies palpitations Hematologic/Lymphatic Hematologic/Lymphatic: Denies easy bruising Allergic/Immunologic Allergic/Immunologic: Denies urticaria, Denies throat swelling and Denies wheezing Patient History <Skyler Gomez PA-C - Last Filed: 07/02/23 18:21> Medical History Ectopic cardiac beats Diverticulosis Atrial fibrillation with rapid ventricular response Hx of lipoma BPH (benign prostatic hyperplasia) Hepatitis B Hypertension Surgical History S/P ureteral stent placement History of lithotripsy Family History Mother Hypertension Cancer Diabetes mellitus Grandfather Heart disease Grandmother Stroke Son Cancer Father No problems noted. Social History household members: spouse Smoking Status: Former smoker alcohol intake: current Smoking Status: Former smoker alcohol intake frequency: 0-2 drinks per day Substance Use Type: does not use Exam <Skyler Gomez PA-C - Last Filed: 07/02/23 18:21> Narrative Exam Narrative: Const General:?cooperative, healthy appearing and comfortable [facility] Head:?normal to inspection Ears:?hearing grossly normal bilaterally Nose:?external nose normal Face and sinus:?normal facial exam and sinuses nontender Mouth:?oral mucosae normal Throat:?posterior oropharynx normal Eyes General:?appearance normal, both eyes and all related structures Neck Neck:?normal visual inspection and no lymphadenopathy noted Resp Effort & Inspection:?normal respiratory effort Auscultation:?clear to auscultation bilaterally Cardio Rate:?regular rate Rhythm:?regular rhythm Neuro General:?patient alert, patient awake and patient oriented x3 Initial Vital Signs Initial Vital Signs: Vital Signs Temperature 98 F 07/02/23 12:16 Pulse Rate 55 L 07/02/23 12:16 Respiratory Rate 12 07/02/23 12:16 Blood Pressure 174/50 H 07/02/23 12:16 Pulse Oximetry 98 07/02/23 12:16 Oxygen Delivery Method Room Air 07/02/23 12:16 <Hannah Estrada MD - Last Filed: 07/10/23 18:26> Initial Vital Signs Initial Vital Signs: Vital Signs Temperature 98 F 07/02/23 12:16 Pulse Rate 55 L 07/02/23 12:16 Respiratory Rate 12 07/02/23 12:16 Blood Pressure 174/50 H 07/02/23 12:16 Pulse Oximetry 98 07/02/23 12:16 Oxygen Delivery Method Room Air 07/02/23 12:16 Course <Skyler Gomez PA-C - Last Filed: 07/02/23 18:21> Orders Ordered: Discontinued Medications Aspirin (Aspirin 81 Mg Chew Tab) 324 mg PO NOW ONE Stop: 07/02/23 12:42 Last Admin: 07/02/23 12:58 Dose: Not Given Documented By: RB Vital Signs Vital signs: Vital Signs - 8 hr 07/02/23 12:16 07/02/23 13:57 07/02/23 14:00 Temperature 98 F Pulse Rate 55 L 73 78 Respiratory Rate 12 18 23 Blood Pressure 174/50 H 137/59 L 151/80 H Pulse Oximetry 98 94 98 Oxygen Delivery Method Room Air Room Air Room Air 07/02/23 14:31 07/02/23 15:30 Temperature Pulse Rate 75 61 Respiratory Rate 24 20 Blood Pressure 153/82 H 151/81 H Pulse Oximetry 96 96 Oxygen Delivery Method Room Air Room Air <Hannah Estrada MD - Last Filed: 07/10/23 18:26> Orders Ordered: Discontinued Medications Aspirin (Aspirin 81 Mg Chew Tab) 324 mg PO NOW ONE Stop: 07/02/23 12:42 Last Admin: 07/02/23 12:58 Dose: Not Given Documented By: RB Vital Signs Vital signs: Vital Signs - 8 hr 07/02/23 12:16 07/02/23 13:57 07/02/23 14:00 Temperature 98 F Pulse Rate 55 L 73 78 Respiratory Rate 12 18 23 Blood Pressure 174/50 H 137/59 L 151/80 H Pulse Oximetry 98 94 98 Oxygen Delivery Method Room Air Room Air Room Air 07/02/23 14:31 07/02/23 15:30 Temperature Pulse Rate 75 61 Respiratory Rate 24 20 Blood Pressure 153/82 H 151/81 H Pulse Oximetry 96 96 Oxygen Delivery Method Room Air Room Air MDM - Arrhythmia/Palpitations <Skyler Gomez PA-C - Last Filed: 07/02/23 18:21> Lab Data 07/02/23 12:30 07/02/23 12:30 Labs: Lab Results 07/02/23 07/02/23 07/02/23 Range/Units 12:30 13:15 14:40 WBC 7.4 (4.5-11.0) X10^3/uL RBC 4.86 (4.5-5.9) X10^6/uL Hgb 14.6 (13.5-17.5) g/dL Hct 42.7 (41-53) % MCV 87.8 (80-100) fL MCH 30.1 (26-34) PG MCHC 34.3 (30-36) % RDW 13.2 (11.6-14.8) % Plt Count 236 (150-400) X10^3/uL Neut % (Auto) 59.7 (50-75) % Lymph % (Auto) 27.2 (25-40) % Sawyer % (Auto) 10.9 (3-14) % Eos % (Auto) 1.9 L (2-4) % Baso % (Auto) 0.3 (0-2) % Neut # (Auto) 4400 (9786-7657) /uL Lymph # (Auto) 2000 (2806-7109) /uL Sawyer # (Auto) 800 (0-900) /uL Eos # (Auto) 100 (0-450) /uL Baso # (Auto) 0 (0-100) /uL PT 13.8 H (9.4-12.5) SECONDS INR 1.2 (0.9-1.3) APTT 21 L (25.1-36.5) SECONDS Sodium 140 (137-145) mmol/L Potassium 3.5 (3.4-5.1) mmol/L Chloride 108 H (98-107) mmol/L Carbon Dioxide 27 (22-32) mmol/L BUN 17 (9-20) mg/dL Creatinine 0.69 (0.66-1.25) mg/dL Estimated GFR > 60 (>60) mL/min BUN/Creatinine Ratio 24.6 H (6-22) Glucose 112 H (80-110) mg/dL Calcium 9.4 (8.4-10.2) mg/dL Magnesium 2.0 (1.6-2.3) mg/dL Total Bilirubin 0.9 (0.2-1.3) mg/dL AST 33 (17-59) IU/L ALT 26 (<50) IU/L Alkaline Phosphatase 77 (38-126) U/L Total Creatine Kinase 50 L 46 L (55-170) U/L Troponin I < 0.012 < 0.012 (0.01-0.034) ng/mL NT-Pro-B Natriuret Pep 77 (<450) pg/mL Total Protein 7.6 (6.3-8.2) g/dL Albumin 4.3 (3.5-5.0) g/dL Globulin 3.3 (1.7-4.1) g/dL Albumin/Globulin Ratio 1.3 (1.0-2.8) Lipase 127 (23-300) U/L Urine Color Yellow Urine Appearance Clear Urine pH 6.5 (4.5-8.0) Ur Specific Childress 1.015 (1.000-1.035) Urine Protein Negative (Negative) Urine Glucose (UA) Negative (Negative) g/dL Urine Ketones Negative (NEGATIVE) Urine Occult Blood Trace-intact (Negative) Urine Nitrate Negative (Negative) Urine Bilirubin Negative (NEGATIVE) Urine Urobilinogen 0.2 (0.2) E.U./dL Ur Leukocyte Esterase Negative (NEGATIVE) Urine RBC 0-1/hpf D (0-5/HPF) Urine WBC None seen (0-5/HPF) Ur Squamous Epith Cells 0-1 /hpf (0-5/HPF) Urine Bacteria None seen (None) Ur Culture Indicated? Cult not indicated Vol Urine Centrifuged 10ml (spun) Urine Dip Bedside Urine Glucose Negative Bedside Urine Bilirubin - Negative Bedside Urine Ketone - Negative Urine Specific Childress 1.015 Bedside Urine Occult Blood +/- Bedside Urine pH 6.0 Bedside Urine Protein - Negative Bedside Urine Urobilinogen - Negative Bedside Urine Nitrite - Negative Bedside Urine Leukocytes - Negative Esterase MDM Narrative Medical decision making narrative: 77-year-old male with past medical history AFib, on Eliquis, BPH, hypertension, obstructive sleep apnea presents to the ED with palpitations and fatigue for 3 days. Concern for ACS versus CHF versus AFib with or without RVR versus pneumonia versus other. Obtained EKG, chest x-ray, labs, troponin, BNP, UA. EKG shows sinus rhythm with sinus arrhythmia. No acute ST-T changes. Chest x- ray without acute findings. Labs within normal limits. Troponin x2 within normal limits. BNP within normal limits. UA without UTI. Patient continued to be stable in the ED. heart rate within normal limits. Discussed findings with patient. Recommend follow-up with concrete mixer operator. Patient sees Dr. Abbott. ED return precautions discussed with patient. Patient verbalized understanding. Medical records reviewed: Yes <Hannah Estrada MD - Last Filed: 07/10/23 18:26> Lab Data Labs: Lab Results 07/02/23 07/02/23 07/02/23 Range/Units 12:30 13:15 14:40 WBC 7.4 (4.5-11.0) X10^3/uL RBC 4.86 (4.5-5.9) X10^6/uL Hgb 14.6 (13.5-17.5) g/dL Hct 42.7 (41-53) % MCV 87.8 (80-100) fL MCH 30.1 (26-34) PG MCHC 34.3 (30-36) % RDW 13.2 (11.6-14.8) % Plt Count 236 (150-400) X10^3/uL Neut % (Auto) 59.7 (50-75) % Lymph % (Auto) 27.2 (25-40) % Sawyer % (Auto) 10.9 (3-14) % Eos % (Auto) 1.9 L (2-4) % Baso % (Auto) 0.3 (0-2) % Neut # (Auto) 4400 (7777-1471) /uL Lymph # (Auto) 2000 (8789-7879) /uL Sawyer # (Auto) 800 (0-900) /uL Eos # (Auto) 100 (0-450) /uL Baso # (Auto) 0 (0-100) /uL PT 13.8 H (9.4-12.5) SECONDS INR 1.2 (0.9-1.3) APTT 21 L (25.1-36.5) SECONDS Sodium 140 (137-145) mmol/L Potassium 3.5 (3.4-5.1) mmol/L Chloride 108 H (98-107) mmol/L Carbon Dioxide 27 (22-32) mmol/L BUN 17 (9-20) mg/dL Creatinine 0.69 (0.66-1.25) mg/dL Estimated GFR > 60 (>60) mL/min BUN/Creatinine Ratio 24.6 H (6-22) Glucose 112 H (80-110) mg/dL Calcium 9.4 (8.4-10.2) mg/dL Magnesium 2.0 (1.6-2.3) mg/dL Total Bilirubin 0.9 (0.2-1.3) mg/dL AST 33 (17-59) IU/L ALT 26 (<50) IU/L Alkaline Phosphatase 77 (38-126) U/L Total Creatine Kinase 50 L 46 L (55-170) U/L Troponin I < 0.012 < 0.012 (0.01-0.034) ng/mL NT-Pro-B Natriuret Pep 77 (<450) pg/mL Total Protein 7.6 (6.3-8.2) g/dL Albumin 4.3 (3.5-5.0) g/dL Globulin 3.3 (1.7-4.1) g/dL Albumin/Globulin Ratio 1.3 (1.0-2.8) Lipase 127 (23-300) U/L Urine Color Yellow Urine Appearance Clear Urine pH 6.5 (4.5-8.0) Ur Specific Childress 1.015 (1.000-1.035) Urine Protein Negative (Negative) Urine Glucose (UA) Negative (Negative) g/dL Urine Ketones Negative (NEGATIVE) Urine Occult Blood Trace-intact (Negative) Urine Nitrate Negative (Negative) Urine Bilirubin Negative (NEGATIVE) Urine Urobilinogen 0.2 (0.2) E.U./dL Ur Leukocyte Esterase Negative (NEGATIVE) Urine RBC 0-1/hpf D (0-5/HPF) Urine WBC None seen (0-5/HPF) Ur Squamous Epith Cells 0-1 /hpf (0-5/HPF) Urine Bacteria None seen (None) Ur Culture Indicated? Cult not indicated Vol Urine Centrifuged 10ml (spun) Urine Dip Bedside Urine Glucose Negative Bedside Urine Bilirubin - Negative Bedside Urine Ketone - Negative Urine Specific Childress 1.015 Bedside Urine Occult Blood +/- Bedside Urine pH 6.0 Bedside Urine Protein - Negative Bedside Urine Urobilinogen - Negative Bedside Urine Nitrite - Negative Bedside Urine Leukocytes - Negative Esterase Discharge Plan Departure Patient Disposition: Home Clinical Impression: Irregular cardiac rhythm Fatigue Qualifiers: Fatigue type: unspecified Qualified Code(s): R53.83 - Other fatigue Instructions: DI for Atrial Fibrillation, DI for Arrhythmias Activity Restrictions/Additional Instructions: You were evaluated in the ED today for more persistent than usual cardiac arrhythmias as well as fatigue for 3 days. Your chest x-ray, EKG, labs were without acute findings. Please continue to monitor your symptoms, get plenty of rest. Return to the ED if you have worsening symptoms, chest pain, shortness of breath. Please follow-up with your concrete mixer operator as soon as possible. Prescriptions: No Action multivitamin [Multiple Vitamins] 1 EACH tablet 1 tab PO DAILY Qty: 0 vitamin B complex Tablet 1 tab PO DAILY Qty: 0 amoxicillin-pot clavulanate 875-125 mg tablet 1 tab PO Q12H Qty: 14 0RF tadalafil [Cialis] 20 mg tablet 20 mg PO DIRECTED PRN (Reason: Erectile Dysfunction) metoprolol succinate 50 mg capsule,sprinkle,ER 24hr 50 mg PO BID Qty: 120 0RF Eliquis 5 mg tablet 5 mg PO BID Qty: 60 0RF lutein-zeaxanthin 20 mg- 1,000 mcg Capsule 1 cap PO DAILY diltiazem HCl 120 mg Capsule,Extended Release 24hr 120 mg PO BID Qty: 7 0RF lorazepam [Ativan] 0.5 mg tablet 0.5 mg PO TID PRN (Reason: anxiety) Qty: 14 0RF Referrals: Luis Lam MD [Primary Care Provider] - Stand Alone Forms: Patient Portal/API ED Sign-out <Hannah Estrada MD - Last Filed: 07/10/23 18:26> Cosign ED Attending Cosignature Attestation: I was immediately available in the department for consultation throughout this patient's visit. Hannah Estrada MD
== END 2023-07-02 15:56 | disposition home or self-care (01) ==
PROVIDERS: Emergency Provider Student in an Organized Health Care Education/Training Program; PCP Internal Medicine
DX: I49.9 Cardiac arrhythmia, unspecified (principal); R53.83 Other fatigue
CPT/HCPCS: 36415; 71045; 80053; 81001; 81003; 82550; 83690; 83735; 83880; 84484; 85025; 85610; 85730; 93005; 99283; 99284

== ENCOUNTER 2023-09-23 12:56 | Emergency (ER) | payer MEDICARE, OTHER, SELFPAY ==
[2019-02-06 18:51] VITALS: BMI 29.2
[2023-09-23] VITALS (11 sets, daily range): BP systolic 153–175; BP diastolic 73–92; PULSE 56–72; RESP 18; TEMP 36.4; O2SAT 91–98; BMI 31.4
--- NOTE | 2023-09-23 13:20 | ED.ABDPAIN ---
HPI - Abdominal Pain General Chief Complaint: Abdominal Pain Stated Complaint: LLQ abd pain Time Seen by Provider: 09/23/23 13:18 Source: patient, RN notes reviewed and old records reviewed Mode of arrival: Ambulatory Limitations: no limitations History of Present Illness HPI narrative: 78-year-old male history of atrial fibrillation on Eliquis, hypertension, dyslipidemia, remote history of kidney stone with persistent painless hematuria and prior diverticulitis who presents with complaint of left lower quadrant tenderness that started about 2 hours prior to arrival patient states he has not sure if it was totally abrupt but just started today. He states he does not appreciate any flank pain. Describes pain has been quite intense and then sort of improving becoming more intense. He has not had any fevers. Denies any active nausea or vomiting. States he has been having bowel movements most recently today. Patient denies any testicular pain. He denies any rash or skin changes. Denies any dysuria, urgency or frequency. He notes hematuria that has been more frequently lately. He has had evaluation with Urology has had cystoscopy she describes as negative, they are following his PSA. He follows with Urology at [facility]. Patient states he did have a kidney stone in the , had a ureteral stent at that time but has not had any additional issues since. Patient states he is on anticoagulation for his AFib, states had excision of a lipoma in his abdomen remotely. Denies any drug allergies. Former smoker, alcohol sometimes once weekly, no recreational drugs. Related Data Home Medications Medication Instructions Recorded Confirmed multivitamin (Multiple Vitamins 1 tab PO DAILY ##0 03/29/17 02/06/19 tablet) vitamin B complex 1 tab PO DAILY ##0 07/27/18 02/06/19 tadalafil 20 mg tablet (Cialis) 20 mg PO DIRECTED PRN Erectile 01/29/19 02/06/19 Dysfunction lutein 20 mg-zeaxanthin 1,000 mcg 1 cap PO DAILY 02/06/19 02/06/19 capsule Previous Rx's Medication Instructions Recorded apixaban 5 mg tablet (Eliquis) 5 mg PO BID #60 tabs 01/29/19 metoprolol succinate 50 mg capsule 50 mg PO BID #120 ea 01/29/19 sprinkle, ext. release 24 hr diltiazem HCl 120 mg 120 mg PO BID #7 caps 02/08/19 capsule,extended release 24 hr lorazepam 0.5 mg tablet (Ativan) 0.5 mg PO TID PRN anxiety #14 tabs 01/08/22 amoxicillin 875 mg-potassium 1 tab PO Q12H #14 tabs 05/18/22 clavulanate 125 mg tablet oxycodone 5 mg tablet 5 mg PO Q6H PRN pain #14 tabs 09/23/23 Allergies Allergy/AdvReac Type Severity Reaction Status Date / Time No Known Drug Allergies Allergy Verified 07/02/23 12:19 Review of Systems Review of Systems ROS Unobtainable: All systems reviewed & are unremarkable except as noted in HPI and below Patient History Medical History Ectopic cardiac beats Diverticulosis Atrial fibrillation with rapid ventricular response Hx of lipoma BPH (benign prostatic hyperplasia) Hepatitis B Hypertension Surgical History S/P ureteral stent placement History of lithotripsy Family History Mother Hypertension Cancer Diabetes mellitus Grandfather Heart disease Grandmother Stroke Son Cancer Father No problems noted. Social History household members: spouse Smoking Status: Former smoker alcohol intake: current Smoking Status: Former smoker alcohol intake frequency: 0-2 drinks per day Substance Use Type: does not use Exam Narrative Exam Narrative: GENERAL: Alert and oriented x three, male in moderate distress. HEENT: Head normocephalic, atraumatic, EOMI, pupils reactive, face symmetric, moist mucous membranes NECK: Supple, full range of motion CARDIOVASCULAR: Regular rate and rhythm without murmurs, rubs or gallops. RESPIRATORY: Breath sounds equal bilaterally, no wheezes rales or rhonchi. ABDOMEN: Soft, nontender. Normoactive bowel sounds all 4 quadrants. No guarding or rebound, rigidity, no mass, no inguinal tenderness mass or defect noted. : No CVA tenderness bilaterally EXTREMITIES: Normal range of motion, no clubbing or edema. Neurovascularly intact NEUROLOGICAL: Cranial nerves II through XII grossly intact. Moving all extremities SKIN: Warm, dry, no petechiae, no rashes or lesions. Initial Vital Signs Initial Vital Signs: Vital Signs Temperature 97.5 F L 09/23/23 13:10 Pulse Rate 69 09/23/23 13:10 Respiratory Rate 18 09/23/23 13:10 Blood Pressure 153/78 H 09/23/23 13:10 Pulse Oximetry 97 09/23/23 13:10 Oxygen Delivery Method Room Air 09/23/23 13:10 Course Orders Ordered: Discontinued Medications Sodium Chloride (Normal Saline 0.9%) 1,000 mls @ 1,000 mls/hr IV BOLUS ONE Stop: 09/23/23 14:35 Last Infusion: 09/23/23 14:49 Dose: Infused Documented By: Admin: 09/23/23 13:45 Dose: 1,000 mls/hr Documented By: AB Ketorolac Tromethamine (Ketorolac 30 Mg/Ml Vial) 15 mg IV NOW ONE Stop: 09/23/23 13:37 Last Admin: 09/23/23 13:45 Dose: 15 mg Documented By: AB Morphine Sulfate (Morphine 4 Mg/Ml Inj) 4 mg IV NOW ONE Stop: 09/23/23 14:15 Last Admin: 09/23/23 14:17 Dose: 4 mg Documented By: AB Vital Signs Vital signs: Vital Signs - 8 hr 09/23/23 13:10 09/23/23 13:21 09/23/23 13:30 Temperature 97.5 F L Pulse Rate 69 67 61 Respiratory Rate 18 Blood Pressure 153/78 H Pulse Oximetry 97 97 98 Oxygen Delivery Method Room Air 09/23/23 13:34 09/23/23 13:34 Temperature Pulse Rate 56 L Respiratory Rate Blood Pressure 166/92 H Pulse Oximetry 96 Oxygen Delivery Method Room Air MDM - Abdominal Pain Lab Data 09/23/23 13:30 09/23/23 13:30 Labs: Lab Results 09/23/23 09/23/23 Range/Units 13:18 13:30 WBC 8.3 (4.5-11.0) X10^3/uL RBC 4.76 (4.5-5.9) X10^6/uL Hgb 14.3 (13.5-17.5) g/dL Hct 41.8 (41-53) % MCV 87.8 (80-100) fL MCH 30.0 (26-34) PG MCHC 34.2 (30-36) % RDW 13.3 (11.6-14.8) % Plt Count 256 (150-400) X10^3/uL Neut % (Auto) 62.4 (50-75) % Lymph % (Auto) 26.8 (25-40) % Gaines % (Auto) 9.1 (3-14) % Eos % (Auto) 1.3 L (2-4) % Baso % (Auto) 0.4 (0-2) % Neut # (Auto) 5200 (4492-3856) /uL Lymph # (Auto) 2200 (6547-8772) /uL Gaines # (Auto) 800 (0-900) /uL Eos # (Auto) 100 (0-450) /uL Baso # (Auto) 0 (0-100) /uL Sodium 140 (137-145) mmol/L Potassium 3.2 L (3.4-5.1) mmol/L Chloride 107 (98-107) mmol/L Carbon Dioxide 26 (22-32) mmol/L BUN 18 (9-20) mg/dL Creatinine 0.96 (0.66-1.25) mg/dL Estimated GFR > 60 (>60) mL/min BUN/Creatinine Ratio 18.8 (6-22) Glucose 121 H (80-110) mg/dL Calcium 9.0 (8.4-10.2) mg/dL Total Bilirubin 0.9 (0.2-1.3) mg/dL AST 35 (17-59) IU/L ALT 26 (<50) IU/L Alkaline Phosphatase 77 (38-126) U/L Total Protein 7.2 (6.3-8.2) g/dL Albumin 4.2 (3.5-5.0) g/dL Globulin 3.0 (1.7-4.1) g/dL Albumin/Globulin Ratio 1.4 (1.0-2.8) Lipase 145 (23-300) U/L Urine RBC 10-30/hpf H (0-5/HPF) Urine WBC 0-1/hpf (0-5/HPF) Ur Squamous Epith Cells 0-1 /hpf (0-5/HPF) Urine Bacteria None seen (None) Ur Culture Indicated? Cult not indicated Vol Urine Centrifuged 10ml (spun) Point of care testing: Urine Dip Bedside Urine Glucose Negative Bedside Urine Bilirubin - Negative Bedside Urine Ketone - Negative Urine Specific [place] 1.015 Bedside Urine Occult Blood +++ Bedside Urine pH 6.5 Bedside Urine Protein - Negative Bedside Urine Urobilinogen - Negative Bedside Urine Nitrite - Negative Bedside Urine Leukocytes - Negative Esterase Imaging Data CT scan - abdomen/pelvis: Radiologist's Impression: ? Chart Viewer Provider NotesNurse/Allied HealthMedicationsDiagnostics AdministrativeOther ClinicalWorkload ItemsHistory & Problems ActivityFlowsheetsHealth MgmtSummary Diagnostics Subcategory All Activity ??:?? All Time ??:?? All Subcategories Filter Laboratory Imaging Microbiology Pathology Blood Bank Tests Cardiovascular Other Specialty DATE TYPE STATUS REF RANGE/AUTHOR Hx Today 13:35 Abdomen/Pelvis CT Signed Keshawn Evans 07/02/23 12:41 Chest X-Ray Signed Rodrigo Phillips 05/18/22 07:51 Abdomen/Pelvis CT Signed Niranjan Orozco 03/02/22 09:54 Echocardiogram Ultrasound Signed Shaggy Abbott 12/30/21 08:36 Chest X-Ray Signed Niranjan Orozco 05/03/21 15:21 Abdomen/Pelvis CT Signed Marina Jefferson 04/08/21 00:00 Echocardiogram Ultrasound Signed Shaggy Abbott 05/01/19 00:00 Lumbar Spine MRI Signed Say Villatoro 02/06/19 19:49 Echocardiogram Ultrasound Signed Shaggy Abbott 02/06/19 18:27 Telemetry Strips ? 02/06/19 18:27 Telemetry Strips ? 02/06/19 15:43 Chest X-Ray Signed Elyssa Alvarado 07/27/18 17:18 Abdomen/Pelvis CT Signed Neptali Cantu Jon R ED 78, M?1945 MRN#? [id number] REG ER,?Main ED??R05?? 180.34cm 102.058kg BMI: 31.4kg/m? Abdominal Pain Acc#? [id number] Resus Status Not Ordered Hx Avail Special Indicators No Data to Display Home Meds Not Confirmed Prescription Monitoring Program MEDICATIONS (INSTRUCTIONS) LAST TAKEN Active ??amoxicillin-pot clavulanate ??1 lqgELU01B#14 tabs ??diltiazem HCl ??120 mgPOBID#7 caps ??Eliquis ??5 mgPOBID#60 tabs ??lorazepam [Ativan] ??0.5 mgPOTIDPRNanxiety#14 tabs ??lutein-zeaxanthin ??1 capPODAILY ??metoprolol succinate ??50 mgPOBID#120 ea ??multivitamin [Multiple Vitamins] ??1 tabPODAILY##0 ??tadalafil [Cialis] ??20 mgPOAS DIRECTEDPRNErectile Dysfunction ??vitamin B complex ??1 tabPODAILY##0 Allergies No Known Drug Allergies Problems ? ONSET Atrial fibrillation with RVR Diverticulitis of colon with perforation Abdominal pain Diverticulitis Vital Signs Today 13:34 BP 166/92?H Pulse 56?L O2 Sat 96? Delivery Room Air? Diagnostics Reports John Mistry??78??M??1945 ? Allergy/Adv: No Known Drug Allergies Close Abdomen/Pelvis CT (Signed) Keshawn Evans - 09/23/23 Chest X-Ray (Signed) Rodrigo Phillips - 07/02/23 Abdomen/Pelvis CT (Signed) Call,Niranjan - 05/18/22 Echocardiogram Ultrasound (Signed) Shaggy Abbott - 03/02/22 Chest X-Ray (Signed) Call,Niranjan - 12/30/21 Abdomen/Pelvis CT (Signed) Marina Jefferson - 05/03/21 Echocardiogram Ultrasound (Signed) Shaggy Abbott - 04/08/21 Lumbar Spine MRI (Signed) Say Villatoro - 05/01/19 Echocardiogram Ultrasound (Signed) Shaggy Abbott - 02/06/19 Telemetry Strips 02/06/19 Telemetry Strips 02/06/19 Chest X-Ray (Signed) Elyssa Alvarado - 02/06/19 Abdomen/Pelvis CT (Signed) Neptali Cantu - 07/27/18 Launch?[address] [address] [address] Scan Report Signed Patient: John Mistry MR#: [id number] : 1945 Acct:[id number] Age/Sex: 78 / M Date of Service: 09/23/23 Loc: ED Accession Number: [id number] Procedure: CT abdomen pelvis w con Ordering Provider: Rosanna Go D.O. PROCEDURE: CT ABDOMEN PELVIS W CON INDICATIONS: LLQ pain, hx diverticulitis, hx hematuria anmd stones TECHNIQUE: After the administration of intravenous contrast, axial sections acquired from the lung bases to the pubic symphysis. Coronal and sagittal reformats were performed. For radiation dose reduction, the following was used: automated exposure control, adjustment of mA and/or kV according to patient size. COMPARISON: [facility], CT, CT ABDOMEN PELVIS W CON, 05/18/2022, 9:55. FINDINGS: Lower thorax: The lung bases are clear. Heart size normal. No hiatal hernia. Liver: Normal in size and attenuation. No contour deformity present. Stable hepatic cysts66 Biliary system: Calcified stones noted in the lumen of the gallbladder. No pericholecystic inflammatory change. No intra or extrahepatic bile duct dilation. Pancreas: Unremarkable without mass or inflammation evident. Spleen: Normal in size and density. Adrenals: Normal morphology and density. Reproductive system: Hypertrophic prostate elevates the bladder floor Urinary system: Left hydronephrosis and hydroureter associated with a 4 mm calculus at the left ureterovesical junction. No right hydronephrosis or calculus. Stable left renal cyst Gastrointestinal system: The bowel is unremarkable without evidence of bowel obstruction or inflammation. The stomach appears unremarkable. Multiple diverticula arise from the sigmoid colon without evidence of diverticulitis. Appendix: No findings to suggest acute appendicitis. Peritoneal spaces: No mesenteric or retroperitoneal adenopathy. No free air. No free fluid. Vasculature: The IVC, aorta and iliac vasculature are unremarkable. Abdominal wall: Bilateral inguinal hernia(s) contain fat without bowel involvement. Musculoskeletal: Normal bone mineralization. No acute fractures. IMPRESSION: Left mild hydronephrosis results from 4 mm calculus at the left ureterovesical junction. Hypertrophic prostate elevates the bladder floor, stable from the prior. Diverticulosis without evidence of diverticulitis Approved by: Keshawn Evans M.D. on 09/23/2023 at 14:22 MDM Narrative Medical decision making narrative: 78-year-old male with left lower quadrant pain does have a history of diverticulitis but also kidney stones. Has had hematuria on and off does have a history of painless hematuria but has had more frequently this week. No flank pain noted but patient's pain had fairly sudden onset today and waxing and waning intensity which seems like kidney stone. Urine shows blood, microscopy shows 10-30 RBCs white cells 1 squamous 1 no bacteria. Labs white count 8.3 hemoglobin of 14 platelets of 256, sodium of 140 potassium of 3.2, chloride of 107 CO2 of 26 BUN 18 creatinine 0.96 glucose of 121 LFTs are negative lipase is 145 CT abdomen pelvis, left mild hydro nephrosis from 4 mm calculus left ureterovesicular junction. Hypertrophic prostate elevated bladder floor stable from prior diverticulosis without evidence of diverticulitis. Calcified stones noted in the lumen of the gallbladder. Patient had Toradol with some improvement but symptoms were reoccurring was given a dose of morphine which additional improvement. Plan for discharge home with oral pain medications, Flomax and follow up with Urology. Patient takes Flomax daily so we will continue with this. He has follow up with Urology at [facility]. Patient's pain is well-controlled reviewed all of his findings from his CT and labs. Discussed return precautions. Discharge Plan Departure Patient Disposition: Home Clinical Impression: Kidney stone on left side Instructions: Kidney Stones -- Adult Activity Restrictions/Additional Instructions: Follow up for recheck if your symptoms are not resolved in the next 2-3 days. You do have a 4 mm kidney stone at the left ureterovesicular junction were close to the bladder. Follow up with your urology team if your symptoms are not improving. Continue your flomax daily. You can take Tylenol up to a 1000 mg every 6 hours as needed for pain and/or ibuprofen up to 600 mg every 6 hours needed for pain. If inadequate for pain control you can take 1-2 tablets of oxycodone every 6 hours as needed for pain. This medication can make you sleepy do not drive, perform hazardous activities or make any major decisions while taking it. This medication will make you constipated please take a stool softener once to twice daily until stools are soft and regular. [facility] [place]. Return for new or worsening abdominal back or flank pain, fevers, persistent vomiting, inability urinate, black or bloody stools or other new or concerning changes. Prescriptions: New oxycodone 5 mg tablet 5 mg PO Q6H PRN (Reason: pain) Qty: 14 0RF No Action multivitamin [Multiple Vitamins] 1 EACH tablet 1 tab PO DAILY Qty: 0 vitamin B complex Tablet 1 tab PO DAILY Qty: 0 amoxicillin-pot clavulanate 875-125 mg tablet 1 tab PO Q12H Qty: 14 0RF tadalafil [Cialis] 20 mg tablet 20 mg PO DIRECTED PRN (Reason: Erectile Dysfunction) metoprolol succinate 50 mg capsule,sprinkle,ER 24hr 50 mg PO BID Qty: 120 0RF Eliquis 5 mg tablet 5 mg PO BID Qty: 60 0RF lutein-zeaxanthin 20 mg- 1,000 mcg Capsule 1 cap PO DAILY diltiazem HCl 120 mg Capsule,Extended Release 24hr 120 mg PO BID Qty: 7 0RF lorazepam [Ativan] 0.5 mg tablet 0.5 mg PO TID PRN (Reason: anxiety) Qty: 14 0RF Referrals: Maricel Burns PA-C [Non-Staff] - Luis Lam MD [Primary Care Provider] - Stand Alone Forms: Patient Portal/API
--- NOTE | 2023-09-23 13:35 | DI.CT.S_ITS ---
PROCEDURE: CT ABDOMEN PELVIS W CON INDICATIONS: LLQ pain, hx diverticulitis, hx hematuria anmd stones TECHNIQUE: After the administration of intravenous contrast, axial sections acquired from the lung bases to the pubic symphysis. Coronal and sagittal reformats were performed. For radiation dose reduction, the following was used: automated exposure control, adjustment of mA and/or kV according to patient size. COMPARISON: [facility], CT, CT ABDOMEN PELVIS W CON, 05/18/2022, 9:55. FINDINGS: Lower thorax: The lung bases are clear. Heart size normal. No hiatal hernia. Liver: Normal in size and attenuation. No contour deformity present. Stable hepatic cysts66 Biliary system: Calcified stones noted in the lumen of the gallbladder. No pericholecystic inflammatory change. No intra or extrahepatic bile duct dilation. Pancreas: Unremarkable without mass or inflammation evident. Spleen: Normal in size and density. Adrenals: Normal morphology and density. Reproductive system: Hypertrophic prostate elevates the bladder floor Urinary system: Left hydronephrosis and hydroureter associated with a 4 mm calculus at the left ureterovesical junction. No right hydronephrosis or calculus. Stable left renal cyst Gastrointestinal system: The bowel is unremarkable without evidence of bowel obstruction or inflammation. The stomach appears unremarkable. Multiple diverticula arise from the sigmoid colon without evidence of diverticulitis. Appendix: No findings to suggest acute appendicitis. Peritoneal spaces: No mesenteric or retroperitoneal adenopathy. No free air. No free fluid. Vasculature: The IVC, aorta and iliac vasculature are unremarkable. Abdominal wall: Bilateral inguinal hernia(s) contain fat without bowel involvement. Musculoskeletal: Normal bone mineralization. No acute fractures. IMPRESSION: Left mild hydronephrosis results from 4 mm calculus at the left ureterovesical junction. Hypertrophic prostate elevates the bladder floor, stable from the prior. Diverticulosis without evidence of diverticulitis Approved by: Keshawn Evans M.D. on 09/23/2023 at 14:22
[2023-09-23 13:42] LABS: Add Manual Diff / Slide Review NO; Basophils Absolute Auto 0 /uL (0-100); Basophils Percent Auto 0.4 % (0-2); Eosinophils Absolute Auto 100 /uL (0-450); Eosinophils Percent Auto 1.3 % (2-4); Hematocrit 41.8 % (41-53); Hemoglobin 14.3 g/dL (13.5-17.5); Lymphocytes Absolute Auto 2200 /uL (1100-4500); Lymphocytes Percent Auto 26.8 % (25-40); Mean Corpuscular HGB Conc 34.2 % (30-36); Mean Corpuscular Volume 87.8 fL (80-100); Monocytes Absolute Auto 800 /uL (0-900); Monocytes Percent Auto 9.1 % (3-14); Neutrophils Absolute Auto 5200 /uL (1500-7000); Neutrophils Percent Auto 62.4 % (50-75); Platelet Count 256 X10^3/uL (150-400); Red Blood Cell Count 4.76 X10^6/uL (4.5-5.9); Red Cell Distribution Width 13.3 % (11.6-14.8); White Blood Cell Count 8.3 X10^3/uL (4.5-11.0)
[2023-09-23] MEDS: SODIUM CHLORIDE 0.9% 1,000 ML 1000 ML IV (13:45)
[2023-09-23] MEDS: KETOROLAC 30 MG/ML VIAL 15 MG IV (13:45)
[2023-09-23 13:51] LABS: Alanine Aminotransferase 26 IU/L (<50); Albumin 4.2 g/dL (3.5-5.0); Albumin Globulin Ratio 1.4 (1.0-2.8); Alkaline Phosphatase 77 U/L (38-126); Aspartate Aminotransferase 35 IU/L (17-59); BUN Creatinine Ratio 18.8 (6-22); Bilirubin Total 0.9 mg/dL (0.2-1.3); Blood Urea Nitrogen 18 mg/dL (9-20); Carbon Dioxide 26 mmol/L (22-32); Chloride 107 mmol/L (98-107); Estimated Glomerular Filt Rate > 60 mL/min (>60); Glucose 121 mg/dL (80-110); HEMOLYSIS 21 (0-50); Lipase 145 U/L (23-300); Potassium 3.2 mmol/L (3.4-5.1); Sodium 140 mmol/L (137-145); Total Protein 7.2 g/dL (6.3-8.2)
[2023-09-23 14:14] LABS: RBC Urine 10-30/HPF (0-5/HPF); Urine Volume 10mL (spun)
[2023-09-23 14:15] LABS: Bacteria Urine None Seen; Culture Indicated Urine Cult Not Indicated; Squamous Epithelial Cell Urine 0-1 /HPF (0-5/HPF); WBC Urine 0-1/HPF (0-5/HPF)
[2023-09-23] MEDS: MORPHINE 4 MG/ML INJ IV (14:17)
== END 2023-09-23 15:58 | disposition home or self-care (01) ==
PROVIDERS: Emergency Provider Emergency Medicine; PCP Internal Medicine
DX: N20.0 Calculus of kidney (principal); I48.91 Unspecified atrial fibrillation; Z79.01 Long term (current) use of anticoagulants; Z87.442 Personal history of urinary calculi
CPT/HCPCS: 36415; 74177; 80053; 81003; 81015; 83690; 85025; 96361; 96374; 96375; 99284; J1885; J2270; Q9967

== ENCOUNTER 2023-09-30 19:09 | Emergency (ER) | payer MEDICARE, OTHER, SELFPAY ==
[2019-02-06 18:51] VITALS: BMI 29.2
[2023-09-30] VITALS (8 sets, daily range): BP systolic 141–174; BP diastolic 64–94; PULSE 64–75; RESP 18; TEMP 36.5; O2SAT 94–97; BMI 31.4
--- NOTE | 2023-09-30 19:45 | ED.ABDPAIN ---
HPI - Abdominal Pain General Chief Complaint: Abdominal Pain Stated Complaint: left lower abd pain Time Seen by Provider: 09/30/23 19:33 History of Present Illness HPI narrative: 78-year-old male presents for left lower quadrant abdominal pain. Patient is seen in our emergency department several days ago for similar, diagnosed with a 4 mm kidney stone. Patient states that he has been doing well at home and taking his Flomax and other pain medications. He states that earlier in the day he had a change in his pain that was more similar to when he had diverticulitis then his renal colic. He was concerned that he may have underlying developing diverticulitis as well as his kidney stone. Denies fevers, nausea, vomiting Related Data Home Medications Medication Instructions Recorded Confirmed multivitamin (Multiple Vitamins 1 tab PO DAILY ##0 03/29/17 02/06/19 tablet) vitamin B complex 1 tab PO DAILY ##0 07/27/18 02/06/19 tadalafil 20 mg tablet (Cialis) 20 mg PO DIRECTED PRN Erectile 01/29/19 02/06/19 Dysfunction lutein 20 mg-zeaxanthin 1,000 mcg 1 cap PO DAILY 02/06/19 02/06/19 capsule Previous Rx's Medication Instructions Recorded apixaban 5 mg tablet (Eliquis) 5 mg PO BID #60 tabs 01/29/19 metoprolol succinate 50 mg capsule 50 mg PO BID #120 ea 01/29/19 sprinkle, ext. release 24 hr diltiazem HCl 120 mg 120 mg PO BID #7 caps 02/08/19 capsule,extended release 24 hr lorazepam 0.5 mg tablet (Ativan) 0.5 mg PO TID PRN anxiety #14 tabs 01/08/22 amoxicillin 875 mg-potassium 1 tab PO Q12H #14 tabs 05/18/22 clavulanate 125 mg tablet oxycodone 5 mg tablet 5 mg PO Q6H PRN pain #14 tabs 09/23/23 Allergies Allergy/AdvReac Type Severity Reaction Status Date / Time No Known Drug Allergies Allergy Verified 07/02/23 12:19 Patient History Medical History Ectopic cardiac beats Diverticulosis Atrial fibrillation with rapid ventricular response Hx of lipoma BPH (benign prostatic hyperplasia) Hepatitis B Hypertension Surgical History S/P ureteral stent placement History of lithotripsy Family History Mother Hypertension Cancer Diabetes mellitus Grandfather Heart disease Grandmother Stroke Son Cancer Father No problems noted. Social History household members: spouse Smoking Status: Former smoker alcohol intake: current Smoking Status: Former smoker alcohol intake frequency: 0-2 drinks per day Substance Use Type: does not use Exam Initial Vital Signs Initial Vital Signs: Vital Signs Temperature 97.7 F 09/30/23 19:19 Pulse Rate 73 09/30/23 19:19 Respiratory Rate 18 09/30/23 19:19 Blood Pressure 174/94 H 09/30/23 19:19 Pulse Oximetry 96 09/30/23 19:19 Oxygen Delivery Method Room Air 09/30/23 19:19 Const: Awake, alert, no acute distress, nontoxic appearing GI: Soft, left lower quadrant tenderness to deep palpation without rebound or guarding Skin: Warm, Dry, intact, no rashes Neuro: AO x3, CN II-XII grossly intact, moves all extremities Course Orders Ordered: ED Orders 09/30/23 19:29 EKG-12 Lead Stat 09/30/23 19:40 Complete Blood Count AUTO DIFF Stat Comprehensive Metabolic Panel Stat Lipase Stat 09/30/23 20:06 CT abdomen pelvis w con Stat 09/30/23 20:30 Urine Culture Stat Urine Microscopic Stat Discontinued Medications Ondansetron HCl (Ondansetron 4 Mg/2 Ml Inj) 4 mg IV NOW PRN PRN Reason: Nausea And Vomiting Ondansetron HCl (Ondansetron 4 Mg Odt) 4 mg PO NOW PRN PRN Reason: Nausea And Vomiting Vital Signs Vital signs: Vital Signs - 8 hr 09/30/23 19:19 09/30/23 19:43 09/30/23 19:44 Temperature 97.7 F Pulse Rate 73 Respiratory Rate 18 Blood Pressure 174/94 H 173/86 H Pulse Oximetry 96 97 Oxygen Delivery Method Room Air 09/30/23 19:44 09/30/23 19:51 09/30/23 19:51 Temperature Pulse Rate 72 72 Respiratory Rate Blood Pressure 162/79 H Pulse Oximetry 97 97 Oxygen Delivery Method Room Air 09/30/23 20:00 09/30/23 20:00 09/30/23 20:33 Temperature Pulse Rate 69 75 Respiratory Rate Blood Pressure 145/77 H Pulse Oximetry 94 Oxygen Delivery Method Room Air 09/30/23 20:33 09/30/23 21:00 09/30/23 21:00 Temperature Pulse Rate 70 Respiratory Rate Blood Pressure 166/80 H 141/64 H Pulse Oximetry 96 Oxygen Delivery Method 09/30/23 21:30 09/30/23 21:30 Temperature Pulse Rate 64 Respiratory Rate Blood Pressure 154/71 H Pulse Oximetry 96 Oxygen Delivery Method Room Air MDM - Abdominal Pain Differential Diagnosis Differential diagnosis: Likely abdominal pain, acute appendicitis and diverticulitis Lab Data 09/30/23 19:40 09/30/23 19:40 Labs: Lab Results 09/30/23 09/30/23 Range/Units 19:40 20:30 WBC 10.3 (4.5-11.0) X10^3/uL RBC 4.80 (4.5-5.9) X10^6/uL Hgb 14.4 (13.5-17.5) g/dL Hct 42.5 (41-53) % MCV 88.5 (80-100) fL MCH 30.0 (26-34) PG MCHC 33.9 (30-36) % RDW 12.9 (11.6-14.8) % Plt Count 228 (150-400) X10^3/uL Neut % (Auto) 77.6 H (50-75) % Lymph % (Auto) 13.0 L (25-40) % [place]ley % (Auto) 8.6 (3-14) % Eos % (Auto) 0.5 L (2-4) % Baso % (Auto) 0.3 (0-2) % Neut # (Auto) 8000 H (2980-4074) /uL Lymph # (Auto) 1300 (0392-6371) /uL Whitley # (Auto) 900 (0-900) /uL Eos # (Auto) 100 (0-450) /uL Baso # (Auto) 0 (0-100) /uL Sodium 139 (137-145) mmol/L Potassium 3.7 (3.4-5.1) mmol/L Chloride 110 H (98-107) mmol/L Carbon Dioxide 24 (22-32) mmol/L BUN 22 H (9-20) mg/dL Creatinine 0.82 (0.66-1.25) mg/dL Estimated GFR > 60 (>60) mL/min BUN/Creatinine Ratio 26.8 H (6-22) Glucose 116 H (80-110) mg/dL Calcium 9.5 (8.4-10.2) mg/dL Total Bilirubin 1.0 (0.2-1.3) mg/dL AST 35 (17-59) IU/L ALT 47 (<50) IU/L Alkaline Phosphatase 80 (38-126) U/L Total Protein 7.6 (6.3-8.2) g/dL Albumin 4.2 (3.5-5.0) g/dL Globulin 3.4 (1.7-4.1) g/dL Albumin/Globulin Ratio 1.2 (1.0-2.8) Lipase 123 (23-300) U/L Urine RBC 10-30/hpf H (0-5/HPF) Urine WBC 0-1/hpf (0-5/HPF) Ur Squamous Epith Cells 0-1 /hpf (0-5/HPF) Urine Bacteria Occasional (0-1) (None) Urine Mucus 1+ H (Negative) Ur Culture Indicated? Specimen cultured Vol Urine Centrifuged 10ml (spun) Point of care testing: Urine Dip Bedside Urine Glucose Negative Bedside Urine Bilirubin - Negative Bedside Urine Ketone + 15 Urine Specific [place] 1.030 Bedside Urine Occult Blood +++ Bedside Urine pH 5.5 Bedside Urine Protein +/- 15 Bedside Urine Urobilinogen - Negative Bedside Urine Nitrite - Negative Bedside Urine Leukocytes +/- [address] scan - abdomen/pelvis: Radiologist's Impression: PROCEDURE: CT ABDOMEN PELVIS W CON INDICATIONS: LLQ PAIN, DIFF THAN RENAL COLIC, DIVERTICULITIS? TECHNIQUE: After the administration of intravenous contrast, axial sections acquired from the lung bases to the pubic symphysis. Coronal and sagittal reformats were performed. For radiation dose reduction, the following was used: automated exposure control, adjustment of mA and/or kV according to patient size. COMPARISON: [facility], CT, CT ABDOMEN PELVIS W CON, 05/18/2022, 9:55. [facility], CT, CT ABDOMEN PELVIS W CON, 09/23/2023, 13:41. FINDINGS: Image quality: Diagnostic. Lower Chest: Minimal atelectasis or scarring at the left lung base. No pleural effusion. ABDOMEN: Liver: Multiple cysts. Gallbladder: Small gallstones. Not distended. Biliary ducts: No biliary dilation. Pancreas: No ductal dilation. No peripancreatic fluid collection. Spleen: Size is within normal limits. Probable small cyst or hemangioma. Adrenal Glands: No adrenal nodules. Kidneys and Ureters: No solid mass. No complex renal cystic lesion which requires follow up. Stone at the left UVJ measuring 0.5 cm, (2/79), unchanged. Mild left hydroureteronephrosis. Stomach and Bowel: Normal colonic caliber, without significant wall thickening. Diverticulosis. The appendix is not dilated. Peritoneum: No abnormal intraperitoneal fluid. No free air. Ventral Wall: No significant ventral hernia. Abdominal Nodes: No retroperitoneal or mesenteric adenopathy by size criteria. Vessels: Aorta and inferior vena cava are normal in size. Circumferential calcified atherosclerotic plaque. PELVIS: Pelvic Organs: Marked prostatomegaly with median lobe hypertrophy. Bladder: Stone at the left UVJ as described above. Urachal remnant. Pelvic Nodes: No enlarged lymph nodes. Miscellaneous: No inguinal hernias are seen. Bones: No aggressive osseous abnormality. DDD most pronounced at L5-S1. IMPRESSION: 1. Stone at the left UVJ measuring 0.5 cm is unchanged in position. Mild left hydroureteronephrosis is similar. 2. No diverticulitis. No fluid collection. 3. Prostatomegaly with marked median lobe hypertrophy. 4. Gallstones. Dictated by: Niranjan Orozco M.D. on 09/30/2023 at 20:58 Approved by: Niranjan Orozco M.D. on 09/30/2023 at 21:08 MDM Narrative Medical decision making narrative: Well-appearing patient with change in his abdominal pain that has concerning for possible diverticulitis rather than just simple kidney stone. Abdomen soft, no peritoneal signs. Laboratory work and CT imaging ordered. Laboratory work shows no significant change from previous visit on 09/23/2023. Kidney function unchanged, no leukocytosis. Urinalysis without infection. CT of the abdomen and pelvis shows no diverticulitis, unchanged appearance of known left-sided kidney stone. Patient was already on Flomax. Patient counseled on his CT and lab results, the encouraged urology follow up if he continues to experience pain and does not have successful passage of the stone. Discharge Plan Departure Patient Disposition: Home Clinical Impression: Kidney stone on left side Abdominal pain Qualifiers: Abdominal location: left lower quadrant Qualified Code(s): R10.32 - Left lower quadrant pain Instructions: DI for Kidney Stones Activity Restrictions/Additional Instructions: Your CT today did not show any evidence of diverticuliti. Your kidney stone is still present and this is likely the source of your pain. Continue to take your pain medications and Flomax. Follow up with Urology as previously instructed. Prescriptions: No Action multivitamin [Multiple Vitamins] 1 EACH tablet 1 tab PO DAILY Qty: 0 vitamin B complex Tablet 1 tab PO DAILY Qty: 0 amoxicillin-pot clavulanate 875-125 mg tablet 1 tab PO Q12H Qty: 14 0RF tadalafil [Cialis] 20 mg tablet 20 mg PO DIRECTED PRN (Reason: Erectile Dysfunction) metoprolol succinate 50 mg capsule,sprinkle,ER 24hr 50 mg PO BID Qty: 120 0RF Eliquis 5 mg tablet 5 mg PO BID Qty: 60 0RF lutein-zeaxanthin 20 mg- 1,000 mcg Capsule 1 cap PO DAILY diltiazem HCl 120 mg Capsule,Extended Release 24hr 120 mg PO BID Qty: 7 0RF lorazepam [Ativan] 0.5 mg tablet 0.5 mg PO TID PRN (Reason: anxiety) Qty: 14 0RF oxycodone 5 mg tablet 5 mg PO Q6H PRN (Reason: pain) Qty: 14 0RF Referrals: Luis Lam MD [Primary Care Provider] - Luis Holt MD [Physician] - Stand Alone Forms: Patient Portal/API
[2023-09-30 19:56] LABS: Add Manual Diff / Slide Review NO; Basophils Absolute Auto 0 /uL (0-100); Basophils Percent Auto 0.3 % (0-2); Eosinophils Absolute Auto 100 /uL (0-450); Eosinophils Percent Auto 0.5 % (2-4); Hematocrit 42.5 % (41-53); Hemoglobin 14.4 g/dL (13.5-17.5); Lymphocytes Absolute Auto 1300 /uL (1100-4500); Mean Corpuscular HGB Conc 33.9 % (30-36); Mean Corpuscular Volume 88.5 fL (80-100); Monocytes Absolute Auto 900 /uL (0-900); Monocytes Percent Auto 8.6 % (3-14); Neutrophils Absolute Auto 8000 /uL (1500-7000); Neutrophils Percent Auto 77.6 % (50-75); Platelet Count 228 X10^3/uL (150-400); Red Cell Distribution Width 12.9 % (11.6-14.8); White Blood Cell Count 10.3 X10^3/uL (4.5-11.0)
--- NOTE | 2023-09-30 20:06 | DI.CT.S_ITS ---
PROCEDURE: CT ABDOMEN PELVIS W CON INDICATIONS: LLQ PAIN, DIFF THAN RENAL COLIC, DIVERTICULITIS? TECHNIQUE: After the administration of intravenous contrast, axial sections acquired from the lung bases to the pubic symphysis. Coronal and sagittal reformats were performed. For radiation dose reduction, the following was used: automated exposure control, adjustment of mA and/or kV according to patient size. COMPARISON: [facility], CT, CT ABDOMEN PELVIS W CON, 05/18/2022, 9:55. [facility], CT, CT ABDOMEN PELVIS W CON, 09/23/2023, 13:41. FINDINGS: Image quality: Diagnostic. Lower Chest: Minimal atelectasis or scarring at the left lung base. No pleural effusion. ABDOMEN: Liver: Multiple cysts. Gallbladder: Small gallstones. Not distended. Biliary ducts: No biliary dilation. Pancreas: No ductal dilation. No peripancreatic fluid collection. Spleen: Size is within normal limits. Probable small cyst or hemangioma. Adrenal Glands: No adrenal nodules. Kidneys and Ureters: No solid mass. No complex renal cystic lesion which requires follow up. Stone at the left UVJ measuring 0.5 cm, (2/79), unchanged. Mild left hydroureteronephrosis. Stomach and Bowel: Normal colonic caliber, without significant wall thickening. Diverticulosis. The appendix is not dilated. Peritoneum: No abnormal intraperitoneal fluid. No free air. Ventral Wall: No significant ventral hernia. Abdominal Nodes: No retroperitoneal or mesenteric adenopathy by size criteria. Vessels: Aorta and inferior vena cava are normal in size. Circumferential calcified atherosclerotic plaque. PELVIS: Pelvic Organs: Marked prostatomegaly with median lobe hypertrophy. Bladder: Stone at the left UVJ as described above. Urachal remnant. Pelvic Nodes: No enlarged lymph nodes. Miscellaneous: No inguinal hernias are seen. Bones: No aggressive osseous abnormality. DDD most pronounced at L5-S1. IMPRESSION: 1. Stone at the left UVJ measuring 0.5 cm is unchanged in position. Mild left hydroureteronephrosis is similar. 2. No diverticulitis. No fluid collection. 3. Prostatomegaly with marked median lobe hypertrophy. 4. Gallstones. Dictated by: Niranjan Orozco M.D. on 09/30/2023 at 20:58 Approved by: Niranjan Orozco M.D. on 09/30/2023 at 21:08
[2023-09-30 20:09] LABS: Alanine Aminotransferase 47 IU/L (<50); Albumin 4.2 g/dL (3.5-5.0); Albumin Globulin Ratio 1.2 (1.0-2.8); Alkaline Phosphatase 80 U/L (38-126); Aspartate Aminotransferase 35 IU/L (17-59); BUN Creatinine Ratio 26.8 (6-22); Blood Urea Nitrogen 22 mg/dL (9-20); Calcium 9.5 mg/dL (8.4-10.2); Carbon Dioxide 24 mmol/L (22-32); Chloride 110 mmol/L (98-107); Estimated Glomerular Filt Rate > 60 mL/min (>60); Globulin 3.4 g/dL (1.7-4.1); Glucose 116 mg/dL (80-110); HEMOLYSIS 24 (0-50); Lipase 123 U/L (23-300); Potassium 3.7 mmol/L (3.4-5.1); Sodium 139 mmol/L (137-145); Total Protein 7.6 g/dL (6.3-8.2)
[2023-09-30 20:50] LABS: Urine Volume 10mL (spun)
[2023-09-30 20:51] LABS: Bacteria Urine Occasional (0-1); Culture Indicated Urine Specimen Cultured; Mucus Urine 1+ (Negative); RBC Urine 10-30/HPF (0-5/HPF); Squamous Epithelial Cell Urine 0-1 /HPF (0-5/HPF); WBC Urine 0-1/HPF (0-5/HPF)
== END 2023-09-30 21:42 | disposition home or self-care (01) ==
PROVIDERS: Emergency Provider Emergency Medicine; PCP Internal Medicine
DX: N20.0 Calculus of kidney (principal); R10.32 Left lower quadrant pain; Z79.01 Long term (current) use of anticoagulants; Z79.899 Other long term (current) drug therapy
CPT/HCPCS: 36415; 74177; 80053; 81003; 81015; 83690; 85025; 87086; 99283; 99284; Q9967

== ENCOUNTER → 2023-11-13 08:56 | Outpatient (CLI) | payer MEDICARE, OTHER, SELFPAY ==
[2019-02-06 18:51] VITALS: BMI 29.2
--- NOTE | 2023-11-13 08:57 | DI.CT.S_ITS ---
PROCEDURE: CT KIDNEY URETER BLADDER (KUB) INDICATIONS: KIDNEY STONE, LLQ ABD PAIN TECHNIQUE: Axial sections were acquired from the lung bases to the pubic symphysis. Coronal and sagittal reformats were performed. For radiation dose reduction, the following was used: automated exposure control, adjustment of mA and/or kV according to patient size. COMPARISON: [facility], CT, CT ABDOMEN PELVIS W CON, 09/30/2023, 20:15. FINDINGS: Image quality: Diagnostic. Lower Chest: No significant findings. Small hiatal hernia. URINARY: Kidney: 5 mm stone within the distal left ureter just upstream from the UVJ, previously demonstrated further downstream at the level of the UVJ. No evidence of hydronephrosis involving bilateral kidneys. No other renal or ureteral calculi. ABDOMEN: Liver: Stable appearing low-density lesions scattered throughout the liver compatible with cysts. Gallbladder: Tiny calcified gallstones within the gallbladder neck. No gallbladder wall thickening or pericholecystic fluid. Biliary ducts: No biliary dilation. Pancreas: No ductal dilation. Spleen: Size is within normal limits. Adrenal Glands: No adrenal nodules. Stomach and Bowel: Small large bowel appear normal in caliber without evidence of bowel obstruction. Colonic diverticulosis without evidence of diverticulitis. Normal-appearing appendix. Peritoneum: No abnormal intraperitoneal fluid. No free air. Ventral Wall: Tiny umbilical hernia containing fat. Abdominal Nodes: No enlarged retroperitoneal or mesenteric lymph nodes. Vessels: Aorta and inferior vena cava are normal in size. 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 PELVIS: Pelvic Organs: Marked prostatomegaly indenting the base of the urinary bladder. Tiny urachal remnant. Pelvic Nodes: Unremarkable. Miscellaneous: Small bilateral inguinal hernias containing fat. Bones: Unremarkable. IMPRESSION: 1. 5 mm stone within the distal left ureter just upstream from the UVJ without evidence of obstructive uropathy. Stone was previously demonstrated slightly more downstream at the level of the UVJ. 2. Prostatomegaly. Dictated by: Phillip Putnam M.D. on 11/13/2023 at 9:11 Approved by: Phillip Putnam M.D. on 11/13/2023 at 10:08
== END ==
PROVIDERS: PCP Internal Medicine; Referring Provider Physician Assistant Medical; Visit Provider Physician Assistant Medical
DX: N20.1 Calculus of ureter (principal); R10.32 Left lower quadrant pain; K44.9 Diaphragmatic hernia without obstruction or gangrene; K57.90 Diverticulosis of intestine, part unspecified, without perforation or abscess without bleeding; N40.0 Benign prostatic hyperplasia without lower urinary tract symptoms; K40.20 Bilateral inguinal hernia, without obstruction or gangrene, not specified as recurrent
CPT/HCPCS: 74176

== ENCOUNTER 2024-04-16 11:07 | Emergency (ER) | payer MEDICARE, OTHER, SELFPAY ==
[2019-02-06 18:51] VITALS: BMI 29.2
--- NOTE | 2024-04-16 11:19 | EKG_ITS ---
[address] [address] Test Date: 2024-04-16 Pat Name: John Mistry Department: Room: Gender: Male Project Control Analyst: KIM : 1945 Requested By: Order Number: [id number] Reading MD: Shakir Campbell MD Measurements Intervals [place] Rate: 98 P: 5 TX: 166 QRS: -12 QRSD: 92 T: 23 QT: 370 QTc: 472 Interpretive Statements Sinus rhythm with occasional premature ventricular complexes and premature atrial complexes Left ventricular hypertrophy with repolarization abnormality ( R in aVL ) Electronically Signed On 04-17-2024 7:36:29 PST by Shakir Campbell MD
--- NOTE | 2024-04-16 11:19 | DI.RAD.S_ITS ---
PROCEDURE: XR CHEST 1V INDICATIONS: chest pain TECHNIQUE: One view of the chest was acquired. COMPARISON: [facility], CR, XR CHEST 1V, 07/02/2023, 12:58. [facility], CR, XR CHEST 1V, 12/30/2021, 9:02. FINDINGS AND IMPRESSION: On this single view study with low lung volumes, no airspace consolidation or pleural effusion is seen. Heart size is at the upper limit of normal, unchanged. Aortic calcifications. Degenerative osseous findings. Dictated by: Juan Mendez M.D. on 04/16/2024 at 12:06 Approved by: Juan Mendez M.D. on 04/16/2024 at 12:07
[2024-04-16 11:23] VITALS: BP 181/90; PULSE 106; RESP 20; TEMP 36.6; O2SAT 96; BMI 29.9
[2024-04-16 11:52] LABS: Add Manual Diff / Slide Review NO; Basophils Absolute Auto 0 /uL (0-100); Basophils Percent Auto 0.5 % (0-2); Eosinophils Absolute Auto 0 /uL (0-450); Eosinophils Percent Auto 0.4 % (2-4); Hematocrit 33.7 % (41-53); Hemoglobin 11.5 g/dL (13.5-17.5); Lymphocytes Absolute Auto 1200 /uL (1100-4500); Lymphocytes Percent Auto 15.2 % (25-40); Mean Corpuscular HGB Conc 34.1 % (30-36); Mean Corpuscular Hemoglobin 29.7 PG (26-34); Monocytes Absolute Auto 600 /uL (0-900); Monocytes Percent Auto 7.6 % (3-14); Neutrophils Absolute Auto 5800 /uL (1500-7000); Neutrophils Percent Auto 76.3 % (50-75); Platelet Count 267 X10^3/uL (150-400); Red Blood Cell Count 3.87 X10^6/uL (4.5-5.9); Red Cell Distribution Width 13.1 % (11.6-14.8); White Blood Cell Count 7.6 X10^3/uL (4.5-11.0)
[2024-04-16 11:57] LABS: INR 1.1 (0.9-1.3); Prothrombin Time 12.3 SECONDS (9.4-12.5)
[2024-04-16 11:59] LABS: PTT Partial Thromboplastin Tim 34 SECONDS (25.1-36.5)
[2024-04-16 12:01] LABS: Alanine Aminotransferase 27 IU/L (<50); Albumin Globulin Ratio 1.4 (1.0-2.8); Alkaline Phosphatase 72 U/L (38-126); Aspartate Aminotransferase 37 IU/L (17-59); BUN Creatinine Ratio 13.3 (6-22); Bilirubin Total 1.1 mg/dL (0.2-1.3); Blood Urea Nitrogen 11 mg/dL (9-20); Carbon Dioxide 24 mmol/L (22-32); Chloride 107 mmol/L (98-107); Creatine Kinase 74 U/L (55-170); Estimated Glomerular Filt Rate > 60 mL/min (>60); Globulin 2.8 g/dL (1.7-4.1); Glucose 117 mg/dL (80-110); HEMOLYSIS 16 (0-50); Lipase 111 U/L (23-300); Magnesium 1.7 mg/dL (1.6-2.3); Potassium 2.8 mmol/L (3.4-5.1); Sodium 139 mmol/L (137-145); Total Protein 6.8 g/dL (6.3-8.2)
--- NOTE | 2024-04-16 12:07 | ED_ITS ---
HPI - Arrhythmia/Palpitations General Chief Complaint: Arrhythmia/Palpitations Stated Complaint: Per patient might be in AFIB Time Seen by Provider: 04/16/24 11:40 Source: patient Mode of arrival: Ambulatory History of Present Illness HPI narrative: Patient here with history of atrial fibrillation on metoprolol. Sees cardiology Dr. Abbott [facility]. Has been off his Eliquis for the past 2 weeks because of urological procedures. He is to resume Eliquis once he stops having hematuria in his Leblanc catheter. His last procedure was within last 2 weeks. This morning at 4:00 p.m. until 10:00 a.m. patient felt palpitations. It was not fast palpitations it was just skipping. He was concerned he was back in atrial fibrillation. Denies denies any chest pain shortness of breath numbness tingling weakness headache. No slurred speech or facial droop. EKG does show sinus rhythm. With PVC. He is required to use a CPAP through the night. However this morning at 3:00 a.m. he awoke and decided to keep his CPAP off however when he awoke at 6:00 a.m. he had palpitations. He was informed that the sleep apnea is what causes his atrial fibrillation. Related Data Home Medications Medication Instructions Recorded Confirmed multivitamin (Multiple Vitamins 1 tab PO DAILY ##0 03/29/17 02/06/19 tablet) vitamin B complex 1 tab PO DAILY ##0 07/27/18 02/06/19 tadalafil 20 mg tablet (Cialis) 20 mg PO DIRECTED PRN Erectile 01/29/19 02/06/19 Dysfunction lutein 20 mg-zeaxanthin 1,000 mcg 1 cap PO DAILY 02/06/19 02/06/19 capsule Previous Rx's Medication Instructions Recorded apixaban 5 mg tablet (Eliquis) 5 mg PO BID #60 tabs 01/29/19 metoprolol succinate 50 mg capsule 50 mg PO BID #120 ea 01/29/19 sprinkle, ext. release 24 hr diltiazem HCl 120 mg 120 mg PO BID #7 caps 02/08/19 capsule,extended release 24 hr lorazepam 0.5 mg tablet (Ativan) 0.5 mg PO TID PRN anxiety #14 tabs 01/08/22 amoxicillin 875 mg-potassium 1 tab PO Q12H #14 tabs 05/18/22 clavulanate 125 mg tablet oxycodone 5 mg tablet 5 mg PO Q6H PRN pain #14 tabs 09/23/23 Allergies Allergy/AdvReac Type Severity Reaction Status Date / Time No Known Drug Allergies Allergy Verified 07/02/23 12:19 Review of Systems Review of Systems Narrative: GENERAL: Negative chills, fatigue, malaise, fever, sweats. HEENT: Negative sinus pain, ear pain, sore throat RESPIRATORY: Negative dyspnea, cough CARDIOVASCULAR: Negative chest pain, positive palpitations GASTROINTESTINAL: Negative nausea, vomiting, abdominal pain : Negative dysuria, frequency, hematuria MUSCULOSKELETAL: Negative muscle or bony pain SKIN: Negative rash, skin lesions NEUROLOGIC: Negative weakness, numbness ROS Unobtainable: All systems reviewed & are unremarkable except as noted in HPI and below Patient History Medical History Ectopic cardiac beats Diverticulosis Atrial fibrillation with rapid ventricular response Hx of lipoma BPH (benign prostatic hyperplasia) Hepatitis B Hypertension Surgical History S/P ureteral stent placement History of lithotripsy Family History Mother Hypertension Cancer Diabetes mellitus Grandfather Heart disease Grandmother Stroke Son Cancer Father No problems noted. Social History household members: spouse Smoking Status: Former smoker alcohol intake: current Smoking Status: Former smoker alcohol intake frequency: 0-2 drinks per day Exam Narrative Exam Narrative: GENERAL: in no distress, not toxic not dyspneic HEAD: Normocephalic. EYES: Pupils equal round ENT: Mucous membranes moist. NECK: Trachea midline. CARDIOVASCULAR: Regular rate and rhythm fast exam is negative. Strong heart sounds RESPIRATORY: Clear to auscultation. Breath sounds equal bilaterally. No wheezes, rales, or rhonchi. GASTROINTESTINAL: Abdomen soft, non-tender EXTREMITIES: No gross deformities. BACK: No flank tenderness. NEURO: AOx4. Clear speech no facial droop light touch intact bilateral face hands and legs. Strong equal exhibit cleaner negative pronator drift. SKIN: Warm and dry PSYCH: Not anxious, is cooperative Initial Vital Signs Initial Vital Signs: Vital Signs Temperature 98 F 04/16/24 11:23 Pulse Rate 106 H 04/16/24 11:23 Respiratory Rate 20 04/16/24 11:23 Blood Pressure 181/90 H 04/16/24 11:23 Pulse Oximetry 96 04/16/24 11:23 Oxygen Delivery Method Room Air 04/16/24 11:23 Course Orders Ordered: Discontinued Medications Aspirin (Aspirin 81 Mg Chew Tab) 324 mg PO NOW ONE Stop: 04/16/24 11:20 Vital Signs Vital signs: Vital Signs - 8 hr 04/16/24 11:23 Temperature 98 F Pulse Rate 106 H Respiratory Rate 20 Blood Pressure 181/90 H Pulse Oximetry 96 Oxygen Delivery Method Room Air MDM - Arrhythmia/Palpitations Lab Data 04/16/24 11:45 04/16/24 11:45 Labs: Lab Results 04/16/24 Range/Units 11:45 WBC 7.6 (4.5-11.0) X10^3/uL RBC 3.87 L (4.5-5.9) X10^6/uL Hgb 11.5 L (13.5-17.5) g/dL Hct 33.7 L (41-53) % MCV 87.0 (80-100) fL MCH 29.7 (26-34) PG MCHC 34.1 (30-36) % RDW 13.1 (11.6-14.8) % Plt Count 267 (150-400) X10^3/uL Neut % (Auto) 76.3 H (50-75) % Lymph % (Auto) 15.2 L (25-40) % Rusk % (Auto) 7.6 (3-14) % Eos % (Auto) 0.4 L (2-4) % Baso % (Auto) 0.5 (0-2) % Neut # (Auto) 5800 (9225-8638) /uL Lymph # (Auto) 1200 (0638-9749) /uL Rusk # (Auto) 600 (0-900) /uL Eos # (Auto) 0 (0-450) /uL Baso # (Auto) 0 (0-100) /uL PT 12.3 (9.4-12.5) SECONDS INR 1.1 (0.9-1.3) APTT 34 (25.1-36.5) SECONDS Sodium 139 (137-145) mmol/L Potassium 2.8 L (3.4-5.1) mmol/L Chloride 107 (98-107) mmol/L Carbon Dioxide 24 (22-32) mmol/L BUN 11 (9-20) mg/dL Creatinine 0.83 (0.66-1.25) mg/dL Estimated GFR > 60 (>60) mL/min BUN/Creatinine Ratio 13.3 (6-22) Glucose 117 H (80-110) mg/dL Calcium 9.0 (8.4-10.2) mg/dL Magnesium 1.7 (1.6-2.3) mg/dL Total Bilirubin 1.1 (0.2-1.3) mg/dL AST 37 (17-59) IU/L ALT 27 (<50) IU/L Alkaline Phosphatase 72 (38-126) U/L Total Creatine Kinase 74 (55-170) U/L Troponin I < 0.012 (0.01-0.034) ng/mL NT-Pro-B Natriuret Pep 136 (<450) pg/mL Total Protein 6.8 (6.3-8.2) g/dL Albumin 4.0 (3.5-5.0) g/dL Globulin 2.8 (1.7-4.1) g/dL Albumin/Globulin Ratio 1.4 (1.0-2.8) Lipase 111 (23-300) U/L Imaging Data Chest x-ray: Radiologist's Impresson: [address] [address] XRay Report Signed Patient: John Mistry MR#: [id number] : 1945 Acct:[id number] Age/Sex: 78 / M Date of Service: 04/16/24 Loc: ED Accession Number: [id number] Procedure: XR chest 1V Ordering Provider: Luis Elliott MD PROCEDURE: XR CHEST 1V INDICATIONS: chest pain TECHNIQUE: One view of the chest was acquired. COMPARISON: [facility], , XR CHEST 1V, 07/02/2023, 12:58. [facility], , XR CHEST 1V, 12/30/2021, 9:02. FINDINGS AND IMPRESSION: On this single view study with low lung volumes, no airspace consolidation or pleural effusion is seen. Heart size is at the upper limit of normal, unchanged. Aortic calcifications. Degenerative osseous findings. Dictated by: Juan Mendez M.D. on 04/16/2024 at 12:06 Approved by: Juan Mendez M.D. on 04/16/2024 at 12:07 [facility] Narrative Medical decision making narrative: Patient here with history of atrial fibrillation on metoprolol. Sees cardiology Dr. Abbott [facility]. Has been off his Eliquis for the past 2 weeks because of urological procedures. He is to resume Eliquis once he stops having hematuria in his Leblanc catheter. His last procedure was within last 2 weeks. This morning at 4:00 p.m. until 10:00 a.m. patient felt palpitations. It was not fast palpitations it was just skipping. He was concerned he was back in atrial fibrillation. Denies denies any chest pain shortness of breath numbness tingling weakness headache. No slurred speech or facial droop. EKG does show sinus rhythm. With PVC. He is required to use a CPAP through the night. However this morning at 3:00 a.m. he awoke and decided to keep his CPAP off however when he awoke at 6:00 a.m. he had palpitations. He was informed that the sleep apnea is what causes his atrial fibrillation. After history and exam CBC CMP troponin EKG chest x-ray [facility] Medical records reviewed: No recent visit for this complaint Differential considered: Includes but not limited to atrial fibrillation electrolyte imbalance STEMI non-STEMI atrial flutter SVT PVC Lab Test results independently reviewed as above. Pertinent findings: WBC 7.6 hemoglobin 11.5 INR 1.1 sodium 139 potassium 2.8 BUN 11 creatinine 0.83 GFR greater than 60 glucose 117 troponin less than 0.012 BNP 136 lipase 111 Independently reviewed EKG sinus rhythm rate [address] elevation or depression. PVC present Imaging studies independently reviewed: Chest x-ray no acute finding Consultations: None indicated at this time Treatments: Patient declines medications Re-evaluations: 12:21 p.m.. Son at bedside. Patient asymptomatic now. Combination of hypokalemia and being off his CPAP likely cause his palpitations. He is not in AFib. No echocardiogram indicated this time. It was a short episode this morning. Return precautions reviewed. He does not want potassium here. Who will double his potassium for the next 2 days and sees primary care for re-evaluation Discussion: Appropriate for discharge home. Likely combination of being off CPAP and hypokalemic causing PVC/palpitations. Return precautions reviewed. Patient asymptomatic. He desires discharge home. Diagnosis: Hypokalemia/palpitations Discharge Plan Departure Patient Disposition: Home Clinical Impression: Palpitations, Acute hypokalemia Instructions: Premature Ventricular Beats, DI for Hypokalemia, DI for Arrhythmias Activity Restrictions/Additional Instructions: Your exam laboratory studies are reassuring. However your potassium was slightly low. Please take your potassium twice a day for the next 2 days to increase its level. See family doctor within a week for re-evaluation to recheck your potassium levels. It is likely combination of sleep apnea and low potassium causing your palpitations. PVC was seen on your EKG today. Keep well hydrated. Return if worse if any questions or concerns. Prescriptions: No Action multivitamin [Multiple Vitamins] 1 EACH tablet 1 tab PO DAILY Qty: 0 vitamin B complex Tablet 1 tab PO DAILY Qty: 0 amoxicillin-pot clavulanate 875-125 mg tablet 1 tab PO Q12H Qty: 14 0RF tadalafil [Cialis] 20 mg tablet 20 mg PO DIRECTED PRN (Reason: Erectile Dysfunction) metoprolol succinate 50 mg capsule,sprinkle,ER 24hr 50 mg PO BID Qty: 120 0RF Eliquis 5 mg tablet 5 mg PO BID Qty: 60 0RF lutein-zeaxanthin 20 mg- 1,000 mcg Capsule 1 cap PO DAILY diltiazem HCl 120 mg Capsule,Extended Release 24hr 120 mg PO BID Qty: 7 0RF lorazepam [Ativan] 0.5 mg tablet 0.5 mg PO TID PRN (Reason: anxiety) Qty: 14 0RF oxycodone 5 mg tablet 5 mg PO Q6H PRN (Reason: pain) Qty: 14 0RF Referrals: Luis Lam MD [Primary Care Provider] - Stand Alone Forms: Patient Portal/API/Survey
[2024-04-16 12:13] LABS: NT-proBNP (BNP-Adult 18+) 136 pg/mL (<450); Troponin I < 0.012 ng/mL (0.01-0.034)
[2024-04-16 13:03] VITALS: BP 143/77; PULSE 83; RESP 18; TEMP 37.1; O2SAT 98
== END 2024-04-16 13:04 | disposition home or self-care (01) ==
PROVIDERS: Emergency Provider Emergency Medicine; PCP Internal Medicine
DX: R00.2 Palpitations (principal); E87.6 Hypokalemia; I49.3 Ventricular premature depolarization; Z86.79 Personal history of other diseases of the circulatory system
CPT/HCPCS: 36415; 71045; 80053; 82550; 83690; 83735; 83880; 84484; 85025; 85610; 85730; 93005; 93010; 99283; 99284

== ENCOUNTER → 2024-05-02 06:56 | Outpatient (CLI) | payer MEDICARE, OTHER, SELFPAY ==
[2019-02-06 18:51] VITALS: BMI 29.2
[2024-05-02 07:37] LABS: Add Manual Diff / Slide Review NO; Basophils Absolute Auto 0 /uL (0-100); Basophils Percent Auto 0.3 % (0-2); Eosinophils Absolute Auto 200 /uL (0-450); Eosinophils Percent Auto 2.6 % (2-4); Hematocrit 34.2 % (41-53); Hemoglobin 11.6 g/dL (13.5-17.5); Lymphocytes Absolute Auto 1400 /uL (1100-4500); Lymphocytes Percent Auto 22.4 % (25-40); Mean Corpuscular HGB Conc 33.8 % (30-36); Mean Corpuscular Hemoglobin 29.6 PG (26-34); Mean Corpuscular Volume 87.6 fL (80-100); Monocytes Absolute Auto 600 /uL (0-900); Monocytes Percent Auto 9.3 % (3-14); Neutrophils Absolute Auto 4200 /uL (1500-7000); Neutrophils Percent Auto 65.4 % (50-75); Platelet Count 259 X10^3/uL (150-400); Red Blood Cell Count 3.91 X10^6/uL (4.5-5.9); Red Cell Distribution Width 13.9 % (11.6-14.8); White Blood Cell Count 6.4 X10^3/uL (4.5-11.0)
[2024-05-02 07:43] LABS: Hemoglobin A1C% w Est Avg Glu 4.8 % (4.0-6.0)
[2024-05-02 08:21] LABS: TSH w/ Reflex to FT4 0.91 uIU/mL (0.47-4.68)
[2024-05-02 08:22] LABS: Hepatitis B Surface Antigen POSITIVE s/c (NEGATIVE)
[2024-05-02 08:25] LABS: HEMOLYSIS < 15 (0-50); Prostate Specific Antigen 11.1 ng/mL (0.10-4.00)
[2024-05-02 08:37] LABS: Alanine Aminotransferase 22 IU/L (<50); Albumin 3.8 g/dL (3.5-5.0); Albumin Globulin Ratio 1.5 (1.0-2.8); Alkaline Phosphatase 78 U/L (38-126); Aspartate Aminotransferase 29 IU/L (17-59); BUN Creatinine Ratio 16.9 (6-22); Bilirubin Total 1.1 mg/dL (0.2-1.3); Blood Urea Nitrogen 15 mg/dL (9-20); Carbon Dioxide 24 mmol/L (22-32); Chloride 106 mmol/L (98-107); Estimated Glomerular Filt Rate > 60 mL/min (>60); Globulin 2.6 g/dL (1.7-4.1); Glucose 105 mg/dL (80-110); Potassium 3.6 mmol/L (3.4-5.1); Sodium 137 mmol/L (137-145); Total Protein 6.4 g/dL (6.3-8.2)
[2024-05-05 23:39] LABS: Hepatitis Be Antibody Reactive (Negative)
== END ==
PROVIDERS: PCP Internal Medicine; Referring Provider Internal Medicine; Visit Provider Internal Medicine
DX: Z00.00 Encounter for general adult medical examination without abnormal findings (principal); I10 Essential (primary) hypertension; R73.01 Impaired fasting glucose; R97.20 Elevated prostate specific antigen [PSA]; B18.1 Chronic viral hepatitis B without delta-agent
CPT/HCPCS: 36415; 80053; 83036; 84153; 84443; 85025; 86707; 87340; 87517

== ENCOUNTER → 2024-05-09 07:46 | Outpatient (CLI) | payer MEDICARE, OTHER, SELFPAY ==
[2019-02-06 18:51] VITALS: BMI 29.2
[2024-05-09 08:46] LABS: Add Manual Diff / Slide Review NO; Basophils Absolute Auto 0 /uL (0-100); Basophils Percent Auto 0.4 % (0-2); Eosinophils Absolute Auto 100 /uL (0-450); Eosinophils Percent Auto 1.6 % (2-4); Hematocrit 36.3 % (41-53); Hemoglobin 12.3 g/dL (13.5-17.5); Lymphocytes Absolute Auto 1300 /uL (1100-4500); Lymphocytes Percent Auto 20.4 % (25-40); Mean Corpuscular HGB Conc 33.8 % (30-36); Mean Corpuscular Hemoglobin 29.6 PG (26-34); Mean Corpuscular Volume 87.6 fL (80-100); Monocytes Absolute Auto 800 /uL (0-900); Monocytes Percent Auto 11.6 % (3-14); Neutrophils Absolute Auto 4300 /uL (1500-7000); Platelet Count 298 X10^3/uL (150-400); Red Blood Cell Count 4.15 X10^6/uL (4.5-5.9); Red Cell Distribution Width 13.3 % (11.6-14.8); White Blood Cell Count 6.5 X10^3/uL (4.5-11.0)
[2024-05-09 10:09] LABS: Alanine Aminotransferase 23 IU/L (<50); Albumin 4.1 g/dL (3.5-5.0); Albumin Globulin Ratio 1.5 (1.0-2.8); Alkaline Phosphatase 87 U/L (38-126); Aspartate Aminotransferase 31 IU/L (17-59); BUN Creatinine Ratio 11.8 (6-22); Bilirubin Total 1.2 mg/dL (0.2-1.3); Blood Urea Nitrogen 11 mg/dL (9-20); Calcium 9.6 mg/dL (8.4-10.2); Carbon Dioxide 25 mmol/L (22-32); Chloride 105 mmol/L (98-107); Estimated Glomerular Filt Rate > 60 mL/min (>60); Globulin 2.7 g/dL (1.7-4.1); Glucose 109 mg/dL (80-110); HEMOLYSIS < 15 (0-50); Potassium 3.9 mmol/L (3.4-5.1); Sodium 139 mmol/L (137-145); Total Protein 6.8 g/dL (6.3-8.2)
== END ==
PROVIDERS: PCP Internal Medicine; Referring Provider Urology; Visit Provider Urology
DX: R33.8 Other retention of urine (principal); N40.0 Benign prostatic hyperplasia without lower urinary tract symptoms; N13.8 Other obstructive and reflux uropathy
CPT/HCPCS: 36415; 80053; 85025